=== PATIENT | male | born 1975 | race Caucasian/White ===

== ENCOUNTER 2020-08-05 15:34 | Inpatient (IN) | payer OTHER ==
[2020-08-05 16:04] LABS: Basophils % (A) 1 %; Eosinophils # (A) 0.1 k/uL (0-0.7); Eosinophils % (A) 2 %; HCT 40.7 % (39.0-53.0); HGB 13.7 gm/dL (13.0-17.5); Lymphocytes # (A) 1.2 k/uL (1.0-4.8); Lymphocytes % (A) 20 %; MCH 36.7 pg (25.0-35.0); MCHC 33.8 g/dL (31.0-37.0); MCV 108.6 fL (80.0-100.0); Macrocytosis Moderate; Mean Platelet Volume 7.1; Monocytes # (A) 0.3 k/uL (0-1.0); Monocytes % (A) 5 %; Neutrophils # (A) 4.1 k/uL (1.3-7.7); Neutrophils % (A) 70 %; Platelet Count 198 k/uL (150-450); RBC 3.74 m/uL (4.30-5.90); RDW 13.3 % (11.5-15.5); WBC 5.9 k/uL (3.8-10.6)
[2020-08-05 16:10] LABS: Prothrombin Time 10.6 sec (9.0-12.0)
[2020-08-05] MEDS ORDERED: LORazepam 2 MG/ML INJ IV STA (16:26)
[2020-08-05 16:33] LABS: ALT 185 U/L (4-49); AST 312 U/L (17-59); African American GFR (CKD) >90 (>60 ml/min/1.73 sqM); Albumin 3.9 g/dL (3.5-5.0); Alkaline Phosphatase 111 U/L (38-126); Anion Gap 12 mmol/L; Blood Urea Nitrogen 10 mg/dL (9-20); Calcium 8.5 mg/dL (8.4-10.2); Carbon Dioxide 24 mmol/L (22-30); Chloride 105 mmol/L (98-107); Creatine Kinase 167 U/L (55-170); Glucose 98 mg/dL (74-99); Magnesium 1.5 mg/dL (1.6-2.3); Non-African American GFR(CKD) >90 (>60 ml/min/1.73 sqM); Potassium 3.9 mmol/L (3.5-5.1); Sodium 141 mmol/L (137-145); Total Bilirubin 0.8 mg/dL (0.2-1.3); Total Protein 6.3 g/dL (6.3-8.2)
[2020-08-05] MEDS ORDERED: SODIUM CHLORIDE 0.9% 1,000 ML with MVI, ADULT NO.4 WITH VIT K 10 ML, THIAMINE 100 MG, F... IV ONE ×4 (16:45)
[2020-08-05 16:49] LABS: Alcohol 287 mg/dL
--- NOTE | 2020-08-05 17:07 | ED ---
Alcohol HPI - General Chief Complaint: Alcohol Stated Complaint: Dehydration, [facility] Pt Time Seen by Provider: 08/05/20 15:50 Source: patient, RN notes reviewed Mode of arrival: wheelchair Limitations: no limitations - History of Present Illness Initial Comments: This is a 44-year-old male with a history of alcohol abuse he states he drinks a fifth a day was trying to get into rehab today he was sent here for further evaluation he's had nausea decrease oral intake he states his last drink was yesterday. Feeling very shaky any palpitations. No fevers chills or sweats at this time. No history of seizures. MD Complaint: alcohol intoxication, alcohol withdrawal, alcohol dependence - Related Data Home Medications Medication Instructions Recorded Confirmed No Known Home Medications 08/05/20 08/05/20 Allergies Allergy/AdvReac Type Severity Reaction Status Date / Time No Known Allergies Allergy Verified 08/05/20 16:42 Review of Systems ROS Statement: Those systems with pertinent positive or pertinent negative responses have been documented in the HPI. ROS Other: All systems not noted in ROS Statement are negative. Past Medical History Past Medical History: No Reported History History of Any Multi-Drug Resistant Organisms: None Reported Past Surgical History: Orthopedic Surgery Past Psychological History: Depression Smoking Status: Current some day smoker Past Alcohol Use History: Abuse, Daily Past Drug Use History: None Reported General Exam - General Exam Comments Initial Comments: This is a well-developed well-nourished awake alert oriented times 3 male he does demonstrate some fine tremors Limitations: no limitations General appearance: alert, anxious Head exam: Present: atraumatic, normocephalic, normal inspection Eye exam: Present: normal appearance, PERRL, EOMI. Absent: scleral icterus, con junctival injection, periorbital swelling ENT exam: Present: mucous membranes dry Neck exam: Present: normal inspection, full ROM Respiratory exam: Present: normal lung sounds bilaterally. Absent: respiratory distress, wheezes, rales, rhonchi, stridor Cardiovascular Exam: Present: normal rhythm, tachycardia, normal heart sounds. Absent: systolic murmur, diastolic murmur, rubs, gallop, clicks GI/Abdominal exam: Present: soft, normal bowel sounds. Absent: distended, ten derness, guarding, rebound, rigid Extremities exam: Present: normal inspection, full ROM, normal capillary refill, other (Some tremor noted). Absent: tenderness, pedal edema, joint swelling, calf tenderness Back exam: Present: normal inspection Neurological exam: Present: alert, oriented X3, CN II-XII intact Psychiatric exam: Present: normal affect, normal mood Skin exam: Present: warm, dry, intact, normal color. Absent: rash Course Vital Signs 08/05/20 15:38 Temperature 97.9 F Pulse Rate 102 H Respiratory 16 Rate Blood Pressure 141/93 O2 Sat by Pulse 95 Oximetry Medical Decision Making - Medical Decision Making I did discuss findings with patient family patient be admitted he does demonstrate evidence of alcohol intoxication as well as withdrawal symptoms at this time. Also hypomagnesemia he will be admitted to the hospitalist Dr. Schreiber - Lab Data Result diagrams: 08/05/20 15:48 08/05/20 15:48 Lab Results 08/05/20 08/05/20 08/05/20 Range/Units 15:48 15:48 15:48 WBC 5.9 (3.8-10.6) k/uL RBC 3.74 L (4.30-5.90) m/uL Hgb 13.7 (13.0-17.5) gm/dL Hct 40.7 (39.0-53.0) % MCV 108.6 H (80.0-100.0) fL MCH 36.7 H (25.0-35.0) pg MCHC 33.8 (31.0-37.0) g/dL RDW 13.3 (11.5-15.5) % Plt Count 198 (150-450) k/uL MPV 7.1 Neutrophils % 70 % Lymphocytes % 20 % Monocytes % 5 % Eosinophils % 2 % Basophils % 1 % Neutrophils # 4.1 (1.3-7.7) k/uL Lymphocytes # 1.2 (1.0-4.8) k/uL Monocytes # 0.3 (0-1.0) k/uL Eosinophils # 0.1 (0-0.7) k/uL Basophils # 0.0 (0-0.2) k/uL Macrocytosis Moderate PT 10.6 (9.0-12.0) sec INR 1.0 (<1.2) Sodium 141 (137-145) mmol/L Potassium 3.9 (3.5-5.1) mmol/L Chloride 105 (98-107) mmol/L Carbon Dioxide 24 (22-30) mmol/L Anion Gap 12 mmol/L BUN 10 (9-20) mg/dL Creatinine 0.78 (0.66-1.25) mg/dL Est GFR (CKD-EPI)AfAm >90 (>60 ml/min/1.73 sqM) Est GFR (CKD-EPI)NonAf >90 (>60 ml/min/1.73 sqM) Glucose 98 (74-99) mg/dL Calcium 8.5 (8.4-10.2) mg/dL Magnesium 1.5 L (1.6-2.3) mg/dL Total Bilirubin 0.8 (0.2-1.3) mg/dL AST 312 H (17-59) U/L ALT 185 H (4-49) U/L Alkaline Phosphatase 111 (38-126) U/L Creatine Kinase 167 (55-170) U/L Total Protein 6.3 (6.3-8.2) g/dL Albumin 3.9 (3.5-5.0) g/dL Serum Alcohol 287 H* mg/dL Disposition Clinical Impression: Alcoholic intoxication, Alcohol withdrawal syndrome, Hypomagnesemia syndrome Disposition: ADMITTED IP TO THIS [facility] Condition: Fair Referrals: None,Stated [Primary Care Provider] - 1-2 days
[2020-08-05] MEDS ORDERED: NALOXONE 0.4 MG/ML 1 ML VIAL IV PRN (17:46)
[2020-08-05] MEDS ORDERED: THIAMINE 100 MG/ML 2 ML VIAL IM STA (17:47)
[2020-08-05] MEDS ORDERED: LORazepam 2 MG/ML INJ IV PRN (17:47)
[2020-08-05] MEDS: MAGNESIUM SULFATE-D5W PMX 1 GM in DEXTROSE/WATER 1 100ML.BAG IVPB SCH ×2 (18:47→19:50)
[2020-08-05] MEDS: LORazepam 2 MG/ML INJ IV PRN (23:17)
--- NOTE | 2020-08-05 23:47 | P.HPIM ---
History of Present Illness H&P Date: 08/05/20 Chief Complaint: Alcohol intoxication 44-year-old male with no significant past medical history patient is alcohol dependent Patient is currently intoxicated and provides limited history Patient admits to drinking a fifth every day, he decided to quit alcohol, he went to rehab today however he was sent to the hospital due to severe intoxication. Upon presentation to the hospital patient was intoxicated ribbon cutter level was 287 blood work showed macrocytosis without anemia, hypomagnesemia, acute alcoholic hepatitis. Patient denies any GI bleeding or abdominal pain denies any chest pain or trouble breathing denies any fevers or chills. Patient denies going through withdrawal seizures in the past. Patient denies any other medical conditions Review of Systems ROS unobtainable: due to mental status Past Medical History Past Medical History: No Reported History Additional Past Medical History / Comment(s): depression, left sided weakness and numbness on left side History of Any Multi-Drug Resistant Organisms: None Reported Past Surgical History: Orthopedic Surgery Additional Past Surgical History / Comment(s): finger surgery Past Anesthesia/Blood Transfusion Reactions: No Reported Reaction Past Psychological History: Depression Smoking Status: Current some day smoker Past Alcohol Use History: Abuse, Daily Additional Past Alcohol Use History / Comment(s): smokes cigars daily, drinks 1 fifth a day of alcohol Past Drug Use History: None Reported - Past Family History Father Brother(s) Family Medical History: Cancer Mother Family Medical History: Cancer Medications and Allergies Home Medications Medication Instructions Recorded Confirmed Type Acetaminophen [Tylenol Extra 2 cap PO Q4-6H 08/05/20 08/05/20 History Strength] Ibuprofen 2 cap PO Q4-6H 08/05/20 08/05/20 History Allergies Allergy/AdvReac Type Severity Reaction Status Date / Time No Known Allergies Allergy Verified 08/05/20 16:42 Physical Exam Vitals: Vital Signs Temp Pulse Pulse Resp BP BP Pulse Ox 08/05/20 20:50 91 18 142/87 90 L 08/05/20 20:00 98.3 F 102 H 16 152/95 93 L 08/05/20 19:39 97 18 138/102 90 L 08/05/20 15:38 97.9 F 102 H 16 141/93 95 Intake and Output 08/05/20 08/05/20 08/06/20 14:59 22:59 06:59 Intake Total 590 Balance 590 Intake: Oral 590 Other: Voiding Method Toilet Weight 74.843 kg Constitutional: No acute distress, sleepy easily arousable however drifts back to sleep and quickly patient seems to be intoxicated Eyes: Anicteric sclerae, moist conjunctiva, Pupils equal round reactive to light ENMT: NC/AT Oropharynx clear, no erythema, or exudates Neck: Supple, FROM, no masses, or JVD No carotid bruits No thyromegaly Lungs: Clear to auscultation Clear to percussion Normal respiratory effort, no accessory muscle use Cardiovascular: Heart regular in rate and rhythm, No murmurs, gallops, or rubs No peripheral edema Abdominal: Soft Nontender, no guarding, rebound or rigidity Abdomen moving with respiration Normoactive bowel sounds No hepatomegaly, No splenomegaly No palpable mass No abdominal wall hernia noted Skin: Normal temperature, tone, texture, turgor No induration No subcutaneous nodules No rash, lesions No ulcers Extremities: No digital cyanosis No clubbing Pedal pulses intact and symmetrical Radial pulses intact and symmetrical No calf tenderness Psychiatric: Alert and oriented to person, place Neuro unable to assess patient is intoxicated and unable to participate with proper neuro exam Lymphatics: no palpable cervical or supraclavicular , or inguinal lymph nodes Results CBC & Chem 7: 08/05/20 15:48 08/05/20 15:48 Labs: Abnormal Lab Results - Last 24 Hours (Table) 08/05/20 08/05/20 Range/Units 15:48 15:48 RBC 3.74 L (4.30-5.90) m/uL MCV 108.6 H (80.0-100.0) fL MCH 36.7 H (25.0-35.0) pg Magnesium 1.5 L (1.6-2.3) mg/dL AST 312 H (17-59) U/L ALT 185 H (4-49) U/L Serum Alcohol 287 H* mg/dL Thrombosis Risk Factor Assmnt - Choose All That Apply Any of the Below Risk Factors Present?: Yes Each Factor Represents 1 point: Age 41-60 years Other Risk Factors: No Other congenital or acquired thrombophilia - If yes, enter type in comment: No Thrombosis Risk Factor Assessment Total Risk Factor Score: 1 Thrombosis Risk Factor Assessment Level: Low Risk Assessment and Plan Assessment: Acute alcohol intoxication with delirium due to moderate to severe alcohol abuse Monitor for alcohol withdrawal syndrome Benzos per CIWA scale Thiamine IV fluid hydration Fall precautions Seizure precautions Macrocytosis without anemia Most likely secondary to alcohol abuse Age and denies any GI bleeding Hypomagnesemia Replace and follow up levels Acute alcoholic hepatitis Monitor liver enzymes CODE STATUS: Full code DVT prophylaxis: Mechanical Discussed with: Patient, ER, RN Anticipated length of stay more than [address]: [facility] A total of 65 minutes was spent on the care of this complex patient more than 50% of the time was spent in counseling and care coordination.
[2020-08-06] MEDS: LORazepam 2 MG/ML INJ IV PRN ×4 (03:03→18:18)
[2020-08-06] MEDS: THIAMINE 100 MG TAB PO SCH ×2 (07:51→18:18)
[2020-08-06] MEDS: NICOTINE 14MG/24HR PATCH TRANSDERM SCH (07:52)
[2020-08-06 10:03] LABS: African American GFR (CKD) 131.2 (60.0-200.0); Albumin 3.5 g/dL (3.80-4.90); Albumin/Globulin Ratio 2.06 (1.60-3.17); Anion Gap 6.9 mmol/L (4.00-12.00); BUN/Creat Ratio 14.29 Ratio (12.00-20.00); Carbon Dioxide 27.1 mmol/L (21.6-31.8); Globulin 1.7 g/dL (1.6-3.3); Magnesium 1.6 mg/dL (1.5-2.4); Non-African American GFR(CKD) 113.2 (60.0-200.0); Potassium 3.6 mmol/L (3.5-5.5); Total Bilirubin 1.3 mg/dL (0.2-1.2); Total Protein 5.2 g/dL (6.2-8.2)
[2020-08-06 10:17] VITALS: BMI 23.0
[2020-08-06] MEDS: MAGNESIUM SULFATE-D5W PMX 1 GM in DEXTROSE/WATER 1 100ML.BAG IVPB SCH ×2 (11:11→12:56)
[2020-08-06] MEDS: DEXTROSE 5%-0.45% NACL 1,000 ML IV SCH ×2 (11:12→23:45)
[2020-08-06] MEDS ORDERED: KETOROLAC 15 MG/ML 1 ML VIAL IVP STA (14:18)
--- NOTE | 2020-08-06 14:34 | P.PN ---
Subjective Progress Note Date: 08/06/20 Patient is lethargic this morning when I saw him. He just received IV Ativan prior to my evaluation according to nursing staff. His having symptoms of withdrawal. Objective - Vital Signs Vital signs: Vital Signs Temp 98.6 F 08/06/20 12:00 Pulse 71 08/06/20 12:00 Resp 18 08/06/20 12:00 BP 167/84 08/06/20 12:00 Pulse Ox 97 08/06/20 12:00 Intake & Output 08/05/20 08/06/20 08/06/20 18:59 06:59 18:59 Intake Total 1390 Balance 1390 Weight 74.843 kg 74.843 kg 74.843 kg Intake: Intake, IV Titration 800 Amount Sodium Chloride 0.9% 1, 800 000 ml @ 100 mls/hr IV . Q10H7M ONE with Mvi, Adult No.4 with Vit K 10 ml with Thiamine 100 mg with Folic Acid 1 mg Rx#: [id number] Oral 590 Other: Voiding Method Toilet Toilet # Voids 2 - Exam General: The patient is lethargic but easily arousable Eye: there is normal conjunctiva bilaterally. Neck: The neck is supple, there is no JVD. Cardiovascular: Normal S1-S2, no S3-S4, no murmurs. Respiratory: Lungs clear to auscultation bilaterally Gastrointestinal: Abdomen is soft, nontender Musculoskeletal: There is no pedal edema. Neurological:. Speech is normal. Skin: Skin is warm and dry - Labs CBC & Chem 7: 08/05/20 15:48 08/06/20 05:03 Labs: Abnormal Lab Results - Last 24 Hours (Table) 08/05/20 08/05/20 08/06/20 Range/Units 15:48 15:48 05:03 RBC 3.74 L (4.30-5.90) m/uL MCV 108.6 H (80.0-100.0) fL MCH 36.7 H (25.0-35.0) pg Calcium 8.0 L (8.7-10.3) mg/dL Magnesium 1.5 L (1.6-2.3) mg/dL Total Bilirubin 1.3 H (0.2-1.2) mg/dL AST 312 H 257 H (17-59) U/L ALT 185 H 175 H (4-49) U/L Total Protein 5.2 L (6.2-8.2) g/dL Albumin 3.50 L (3.80-4.90) g/dL Serum Alcohol 287 H* mg/dL Assessment and Plan Assessment: Acute alcohol intoxication with delirium due to moderate to severe alcohol abuse Monitor for alcohol withdrawal syndrome Benzos per CIWA scale Thiamine IV fluid hydration Fall precautions Seizure precautions Macrocytosis without anemia Most likely secondary to alcohol abuse Age and denies any GI bleeding Hypomagnesemia Replace and follow up levels Acute alcoholic hepatitis Monitor liver enzymes CODE STATUS: Full code DVT prophylaxis: Mechanical Discussed with: Patient, ER, RN
[2020-08-06] MEDS: diazePAM 5 MG TAB PO SCH (21:39)
[2020-08-07] MEDS ORDERED: cloNIDine HCL 0.2 MG TAB PO PRN (01:00)
[2020-08-07] MEDS ORDERED: Magnesium Replacement Protocol 1 EACH MISC MISCELLANE PRN (08:57)
[2020-08-07] MEDS: NICOTINE 14MG/24HR PATCH TRANSDERM SCH (09:05)
[2020-08-07] MEDS: MAGNESIUM SULFATE-D5W PMX 1 GM in DEXTROSE/WATER 1 100ML.BAG IVPB SCH ×2 (09:05→13:06)
[2020-08-07] MEDS: diazePAM 5 MG TAB PO SCH ×2 (09:05→20:31)
[2020-08-07] MEDS: THIAMINE 100 MG TAB PO SCH ×2 (09:05→17:03)
[2020-08-07] MEDS ORDERED: traMADol 50 MG TAB PO STA (09:23)
[2020-08-07 10:37] LABS: African American GFR (CKD) 139.7 (60.0-200.0); Anion Gap 6.4 mmol/L (4.00-12.00); Calcium 8.5 mg/dL (8.7-10.3); Carbon Dioxide 29.6 mmol/L (21.6-31.8); Magnesium 1.7 mg/dL (1.5-2.4); Non-African American GFR(CKD) 120.6 (60.0-200.0); Potassium 3.3 mmol/L (3.5-5.5)
[2020-08-07] MEDS ORDERED: POTASSIUM CHLORIDE ER 20 MEQ TAB.ER PO STA (12:00)
[2020-08-07 12:31] VITALS: RESP 20
[2020-08-07] MEDS: DEXTROSE 5%-0.45% NACL 1,000 ML IV SCH (13:06)
--- NOTE | 2020-08-07 15:22 | P.PN ---
Subjective Progress Note Date: 08/07/20 Patient is doing well today. He is complaining of mild headache. No acute events overnight reported by nursing staff. Objective - Vital Signs Vital signs: Vital Signs Temp 97.9 F 08/07/20 12:30 Pulse 77 08/07/20 12:30 Resp 20 08/07/20 12:30 BP 131/89 08/07/20 12:30 Pulse Ox 95 08/07/20 12:30 Intake & Output 08/06/20 08/07/20 08/07/20 18:59 06:59 18:59 Intake Total 470 1125 Balance 470 1125 Weight 74.843 kg Intake: Intake, IV Titration 725 Amount Dextrose 5%-0.45% NaCl 1, 725 000 ml @ 75 mls/hr IV . [id number] [facility] Rx#:[id number] Oral 470 400 Other: Voiding Method Toilet Diaper Urinal Incontinent Diaper Incontinent # Voids 1 2 # Bowel Movements 2 1 - Exam General: The patient is lethargic but easily arousable Eye: there is normal conjunctiva bilaterally. Neck: The neck is supple, there is no JVD. Cardiovascular: Normal S1-S2, no S3-S4, no murmurs. Respiratory: Lungs clear to auscultation bilaterally Gastrointestinal: Abdomen is soft, nontender Musculoskeletal: There is no pedal edema. Neurological:. Speech is normal. Skin: Skin is warm and dry - Labs CBC & Chem 7: 08/05/20 15:48 08/07/20 05:17 Labs: Abnormal Lab Results - Last 24 Hours (Table) 08/07/20 Range/Units 05:17 Potassium 3.3 L (3.5-5.5) mmol/L Glucose 154 H (70-110) mg/dL Calcium 8.5 L (8.7-10.3) mg/dL Assessment and Plan Assessment: Acute alcohol intoxication with delirium due to moderate to severe alcohol abuse Monitor for alcohol withdrawal syndrome Benzos per CIWA scale Thiamine IV fluid hydration Fall precautions Seizure precautions Macrocytosis without anemia Most likely secondary to alcohol abuse denies any GI bleeding Hypomagnesemia Replaced Acute alcoholic hepatitis Monitor liver enzymes Patient will be discharged to [facility] tomorrow. They're unable to accept him today. CODE STATUS: Full code DVT prophylaxis: Mechanical Discussed with: Patient, ER, RN
[2020-08-07] MEDS: ACETAMINOPHEN TAB 325 MG TAB PO PRN (17:03)
[2020-08-07 17:41] LABS: ALT 134 U/L (4-49); AST 140 U/L (17-59); African American GFR (CKD) >90 (>60 ml/min/1.73 sqM); Albumin 3.8 g/dL (3.5-5.0); Albumin/Globulin Ratio 1.7; Alkaline Phosphatase 118 U/L (38-126); Anion Gap 5 mmol/L; Blood Urea Nitrogen 8 mg/dL (9-20); Calcium 9.2 mg/dL (8.4-10.2); Carbon Dioxide 30 mmol/L (22-30); Chloride 100 mmol/L (98-107); Globulin 2.3 g/dL; Glucose 106 mg/dL (74-99); Non-African American GFR(CKD) >90 (>60 ml/min/1.73 sqM); Potassium 4.1 mmol/L (3.5-5.1); Sodium 135 mmol/L (137-145); Total Bilirubin 1.2 mg/dL (0.2-1.3); Total Protein 6.1 g/dL (6.3-8.2)
[2020-08-08 05:12] VITALS: BP 132/90; PULSE 90; TEMP 98.9
--- NOTE | 2020-08-08 08:19 | P.DS ---
Providers Date of admission: 08/05/20 17:46 Expected date of discharge: 08/08/20 Attending physician: Marina Schreiber Primary care physician: Stated None Hospital Course: This is a 44-year-old male with history of alcohol abuse that presented to the emergency room sent from [facility] with alcohol intoxication. Patient was placed on observation and treated aggressively with IV fluid hydration and as needed Ativan for symptoms of withdrawal. Patient's overall condition remains stable. He would be discharged to [facility] for detox. He had evidence of alcohol-induced hepatitis on presentation that liver enzymes was trending down. Hypomagnesemia was replaced. Patient will be discharged in a stable condition. He was counseled extensively regarding alcohol abuse. General: The patient is awake and alert, in no distress Eye: there is normal conjunctiva bilaterally. Neck: The neck is supple, there is no JVD. Cardiovascular: Normal S1-S2, no S3-S4, no murmurs. Respiratory: Lungs clear to auscultation bilaterally Gastrointestinal: Abdomen is soft, nontender Musculoskeletal: There is no pedal edema. Neurological:. Speech is normal. Skin: Skin is warm and dry Patient Condition at Discharge: Fair Plan - Discharge Summary Discharge Rx Participant: Yes New Discharge Prescriptions: New Magnesium Oxide [Mag-Ox] 400 mg PO DAILY #30 tablet Discontinued Acetaminophen [Tylenol Extra Strength] 2 cap PO Q4-6H Ibuprofen 2 cap PO Q4-6H Discharge Medication List Magnesium Oxide [Mag-Ox] 400 mg PO DAILY #30 tablet 08/08/20 [Rx] Follow up Appointment(s)/Referral(s): None,Stated [Primary Care Provider] - 1-2 days Discharge Disposition: TRANSFER TO SNF/ECF
[2020-08-08] MEDS: NICOTINE 14MG/24HR PATCH TRANSDERM SCH (08:28)
[2020-08-08] MEDS: THIAMINE 100 MG TAB PO SCH (08:28)
[2020-08-08] MEDS: diazePAM 5 MG TAB PO SCH (08:28)
[2020-08-08] MEDS: ACETAMINOPHEN TAB 325 MG TAB PO PRN (08:29)
== END 2020-08-08 13:09 | disposition home or self-care (01) | DRG 897 ==
LOC: EC 15:34 → 5NMEDONC 17:46
PROVIDERS: ADMIT Internal Medicine; ATTEND Internal Medicine
DX: F10.221 Alcohol dependence with intoxication delirium (principal); F10.239 Alcohol dependence with withdrawal, unspecified; F17.210 Nicotine dependence, cigarettes, uncomplicated; E83.42 Hypomagnesemia; D75.89 Other specified diseases of blood and blood-forming organs; E86.0 Dehydration; F32.9 Major depressive disorder, single episode, unspecified; K70.10 Alcoholic hepatitis without ascites; Z71.41 Alcohol abuse counseling and surveillance of alcoholic; Z20.822 Contact with and (suspected) exposure to COVID-19; Y90.8 Blood alcohol level of 240 mg/100 ml or more
CPT/HCPCS: 36415; 80048; 80053; 80320; 82550; 83735; 85025; 85610; 87636; 99285

== ENCOUNTER 2020-10-09 22:09 | Inpatient (IN) | payer OTHER ==
[2020-10-09] MEDS ORDERED: LORazepam 2 MG/ML INJ IV STA (22:57)
[2020-10-09] MEDS ORDERED: SODIUM CHLORIDE 0.9% 1,000 ML IV STA (22:57)
--- NOTE | 2020-10-09 22:57 | ED ---
Alcohol HPI - General Chief Complaint: Alcohol Stated Complaint: Mental Health Time Seen by Provider: 10/09/20 22:57 Source: patient, RN notes reviewed, old records reviewed Mode of arrival: ambulatory Limitations: no limitations, altered mental status - History of Present Illness Initial Comments: This is a 44-year-old male DF for evaluation patient presents today for evaluation regards to severe alcohol intoxication. Patient is gone through phases recently with rehabilitation withdrawal, and patient withdrawal and has been sober for periods of time. Patient recently started taking again and family is concerned for him MD Complaint: alcohol intoxication, alcohol withdrawal, alcohol dependence, desires rehab, medical clearance for detox facility Last Drink: just STUDIO POTTER -: minute(s) Previous Visits for Alcohol Intoxication?: Yes Recent Trauma: No Associated Symptoms: denies other symptoms Treatments Prior to Arrival: none Chronic Alcohol Use: Yes - Related Data Previous Rx's Medication Instructions Recorded Magnesium Oxide [Mag-Ox] 400 mg PO DAILY #30 tablet 08/08/20 Allergies Allergy/AdvReac Type Severity Reaction Status Date / Time No Known Allergies Allergy Verified 10/09/20 22:46 Review of Systems ROS Statement: Those systems with pertinent positive or pertinent negative responses have been documented in the HPI. ROS Other: All systems not noted in ROS Statement are negative. Past Medical History Past Medical History: No Reported History Additional Past Medical History / Comment(s): depression, left sided weakness and numbness on left side History of Any Multi-Drug Resistant Organisms: None Reported Past Surgical History: Orthopedic Surgery Additional Past Surgical History / Comment(s): finger surgery Past Anesthesia/Blood Transfusion Reactions: No Reported Reaction Past Psychological History: Depression Smoking Status: Current some day smoker Past Alcohol Use History: Abuse, Daily Past Drug Use History: None Reported - Past Family History Father Brother(s) Family Medical History: Cancer Mother Family Medical History: Cancer General Exam Limitations: no limitations, altered mental status General appearance: appears intoxicated, anxious, lethargic Head exam: Present: atraumatic, normocephalic, normal inspection Eye exam: Present: normal appearance, PERRL, EOMI. Absent: scleral icterus, conjunctival injection, periorbital swelling ENT exam: Present: normal exam, mucous membranes moist Neck exam: Present: normal inspection. Absent: tenderness, meningismus, lymphadenopathy Respiratory exam: Present: normal lung sounds bilaterally. Absent: respiratory distress, wheezes, rales, rhonchi, stridor Cardiovascular Exam: Present: normal rhythm, tachycardia, normal heart sounds. Absent: systolic murmur, diastolic murmur, rubs, gallop, clicks GI/Abdominal exam: Present: soft, normal bowel sounds. Absent: distended, tenderness, guarding, rebound, rigid Extremities exam: Present: normal inspection, full ROM, normal capillary refill. Absent: tenderness, pedal edema, joint swelling, calf tenderness Back exam: Present: normal inspection Neurological exam: Present: alert, oriented X3, CN II-XII intact Psychiatric exam: Present: normal affect, normal mood Skin exam: Present: warm, dry, intact, normal color. Absent: rash Course Vital Signs 10/09/20 10/09/20 10/10/20 22:43 23:46 00:00 Temperature 97.7 F Pulse Rate 119 H 89 90 Respiratory 20 20 20 Rate Blood Pressure 145/97 92/51 97/61 O2 Sat by Pulse 95 95 96 Oximetry 10/10/20 01:00 Temperature Pulse Rate 87 Respiratory 20 Rate Blood Pressure 95/62 O2 Sat by Pulse 98 Oximetry - Reevaluation(s) Reevaluation #1: 10/10/20 01:34 Record is reviewed Reevaluation #2: 10/10/20 01:34 patient is significantly intoxicated, mildly somnolent here in the ER Reevaluation #3: 10/10/20 01:34 Patient is not homicidal or suicidal Reevaluation #4: 10/10/20 01:34 Patient family informed of results and questions answered Medical Decision Making - Medical Decision Making 44 male to the ER for severe alcohol intoxication. Patient will be admitted for impending alcohol withdrawal and DTs. - Lab Data Result diagrams: 10/09/20 23:25 10/09/20 23:25 Lab Results 10/09/20 10/09/20 Range/Units 23:25 23:25 WBC 8.2 (3.8-10.6) k/uL RBC 4.06 L (4.30-5.90) m/uL Hgb 13.8 (13.0-17.5) gm/dL Hct 42.3 (39.0-53.0) % MCV 104.1 H (80.0-100.0) fL MCH 33.9 (25.0-35.0) pg MCHC 32.6 (31.0-37.0) g/dL RDW 14.3 (11.5-15.5) % Plt Count 214 (150-450) k/uL MPV 7.2 Neutrophils % 47 % Lymphocytes % 44 % Monocytes % 3 % Eosinophils % 2 % Basophils % 1 % Neutrophils # 3.9 (1.3-7.7) k/uL Lymphocytes # 3.6 (1.0-4.8) k/uL Monocytes # 0.3 (0-1.0) k/uL Eosinophils # 0.1 (0-0.7) k/uL Basophils # 0.1 (0-0.2) k/uL Macrocytosis Slight Sodium 144 (137-145) mmol/L Potassium 3.4 L (3.5-5.1) mmol/L Chloride 108 H (98-107) mmol/L Carbon Dioxide 25 (22-30) mmol/L Anion Gap 11 mmol/L BUN 6 L (9-20) mg/dL Creatinine 0.72 (0.66-1.25) mg/dL Est GFR (CKD-EPI)AfAm >90 (>60 ml/min/1.73 sqM) Est GFR (CKD-EPI)NonAf >90 (>60 ml/min/1.73 sqM) Glucose 90 (74-99) mg/dL Calcium 8.9 (8.4-10.2) mg/dL Phosphorus 2.7 (2.5-4.5) mg/dL Magnesium 1.6 (1.6-2.3) mg/dL Total Bilirubin 0.6 (0.2-1.3) mg/dL AST 87 H (17-59) U/L ALT 38 (4-49) U/L Alkaline Phosphatase 93 (38-126) U/L Total Protein 6.5 (6.3-8.2) g/dL Albumin 4.2 (3.5-5.0) g/dL Lipase 200 (23-300) U/L Serum Alcohol 376 H* mg/dL Disposition Clinical Impression: Alcoholic intoxication, Alcohol withdrawal syndrome Disposition: ADMITTED IP TO THIS HOSP Condition: Fair Is patient prescribed a controlled substance at d/c from ED?: No Referrals: None,Stated [Primary Care Provider] - 1-2 days
[2020-10-09 23:49] LABS: Basophils # (A) 0.1 k/uL (0-0.2); Basophils % (A) 1 %; Eosinophils # (A) 0.1 k/uL (0-0.7); Eosinophils % (A) 2 %; HCT 42.3 % (39.0-53.0); HGB 13.8 gm/dL (13.0-17.5); Lymphocytes # (A) 3.6 k/uL (1.0-4.8); Lymphocytes % (A) 44 %; MCH 33.9 pg (25.0-35.0); MCHC 32.6 g/dL (31.0-37.0); MCV 104.1 fL (80.0-100.0); Macrocytosis Slight; Mean Platelet Volume 7.2; Monocytes # (A) 0.3 k/uL (0-1.0); Monocytes % (A) 3 %; Neutrophils # (A) 3.9 k/uL (1.3-7.7); Neutrophils % (A) 47 %; Platelet Count 214 k/uL (150-450); RBC 4.06 m/uL (4.30-5.90); RDW 14.3 % (11.5-15.5); WBC 8.2 k/uL (3.8-10.6)
[2020-10-09 23:55] LABS: ALT 38 U/L (4-49); AST 87 U/L (17-59); African American GFR (CKD) >90 (>60 ml/min/1.73 sqM); Albumin 4.2 g/dL (3.5-5.0); Alkaline Phosphatase 93 U/L (38-126); Anion Gap 11 mmol/L; Blood Urea Nitrogen 6 mg/dL (9-20); Calcium 8.9 mg/dL (8.4-10.2); Carbon Dioxide 25 mmol/L (22-30); Chloride 108 mmol/L (98-107); Glucose 90 mg/dL (74-99); Lipase 200 U/L (23-300); Magnesium 1.6 mg/dL (1.6-2.3); Non-African American GFR(CKD) >90 (>60 ml/min/1.73 sqM); Phosphorus 2.7 mg/dL (2.5-4.5); Potassium 3.4 mmol/L (3.5-5.1); Sodium 144 mmol/L (137-145); Total Bilirubin 0.6 mg/dL (0.2-1.3); Total Protein 6.5 g/dL (6.3-8.2)
[2020-10-10 00:16] LABS: Alcohol 376 mg/dL
[2020-10-10] MEDS ORDERED: ONDANSETRON 4 MG/2 ML VIAL IVP PRN (01:31)
[2020-10-10] MEDS ORDERED: SODIUM CHLORIDE 0.9% 500 ML 500 ML IV STA (01:32)
[2020-10-10] MEDS ORDERED: THIAMINE 100 MG/ML 2 ML VIAL IM STA (01:32)
[2020-10-10] MEDS ORDERED: LORazepam 2 MG/ML INJ IV PRN (01:32)
[2020-10-10] MEDS ORDERED: SODIUM CHLORIDE 0.9% 1,000 ML IV STA (01:32)
[2020-10-10] MEDS: DEXTROSE 5%-0.45% NACL 1,000 ML IV SCH ×3 (02:02→21:30)
[2020-10-10] MEDS: NICOTINE 21MG/24HR PATCH TRANSDERM SCH ×2 (03:23→08:05)
[2020-10-10] MEDS: PANTOPRAZOLE 40 MG/10 ML VIAL IV SCH (08:07)
[2020-10-10] MEDS: MORPHINE SULFATE 4 MG/ML SYRINGE IV PRN ×2 (08:08→12:31)
[2020-10-10] MEDS: LORazepam 2 MG/ML INJ IV PRN ×4 (12:57→21:30)
--- NOTE | 2020-10-10 13:38 | P.CN ---
Psychiatric Consult - . Consult date: 10/10/20 Consult:: 10/10/20 12:14 IDENTIFYING DATA: This patient is a 44-year old male with a history of severe alcohol use disorder was currently going through a separation with his , lives with his mother in a house has 6 kids and 3 grandkids. Patient is apparently unemployed. REASON FOR REFERRAL: Psychiatry was consulted for "alcohol and depression" HISTORY OF PRESENT ILLNESS: The patient presented to the hospital yesterday with severe alcohol intoxication. Apparently patient has been on and off from alcohol and has been going to rehab as well. The family apparently was concerned for him and patient apparently desired to go to rehab. Patient was admitted to the medical floors for impending withdrawal and possible delirium tremens. Patient is on CIWA protocol with Ativan when necessary. His MCV is 104 and alcohol level on admission was 376. Patients nurse cleans the patient was feeling nauseous and vomiting and also had a recent CIWA that was elevated and is receiving Ativan for her. Patient was seen at the bedside and agreeable to speak to newswriter. He appeared to be in distress secondary to his alcohol withdrawal. He claims that he's been 57 days clean and recently I would of [facility] on September 01. He states that he was doing fine about 4 days ago he relapsed back on alcohol. He states that "I couldn't stop" and knew that he was going to get worse so he came to the hospital. He states that he has been drinking a half-gallon of vodka recently per day. He states that he recently started the separation process with his and filing for divorce. He states that she has been with another man. He states that he has been having ongoing relationship issues with her. 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 He states his mood has been fairly depressed. He claims that he is having some anxiety and was previously on BuSpar. He states that his sleep is "broken" and appetite as been poor. He claims that he does have a history of delirium tremens and severe alcohol withdrawals in the past and is currently experiencing nausea and vomiting and dizziness and gait instability. At this time patient denies any current suicidal or homical ideations, intent or plan. Patient denies any auditory, visual hallucinations and denies any paranoia or delusions. Patients admits to using alcohol as mentioned above. He states that he smokes cigarettes daily. PAST PSYCHIATRIC HISTORY: Patient has a a history of depression and PTSD. Patient denies being on any psychiatric medications. Claims that he was previously admitted to [facility] for psychiatric concerns back in October 2019. He states that he also has been following up with a counselor at [facility]. Patient denies any psychiatric outpatient follow-up. Patient denies any history of suicide attempts in the past. PAST MEDICAL HISTORY: denies. ALLERGIES: as per EMR. CHEMICAL DEPENDENCY HISTORY: as per HPI. FAMILY PSYCHIATRIC/SUBSTANCE USE HISTORY: He states that his brother committed suicide. He states that most family members are depressed. SOCIAL HISTORY: Patient was born and raised in [place] and [place] and states that now he currently lives in [place]. He states that he went to shelter for a criminal sexual conduct degree 3. he states that he completed high school and went on to trade school. He currently lives with his mother and house. MENTAL STATUS EXAM: General Appearance: Patient appears to be tall, thin, stated age is alert, appears to be in distress secondary to withdrawal symptoms. Patient appears to have fair hygiene and grooming wearing hospital gown with poor eye contact. Behavior: Patient is calmly lying in bed without any agitated behavior. In moderate distress. Speech: Patient's speech is fluent and nonpressured. Soft tone Mood/Affect: Patient reports their mood is "depressed and anxious", affect is congruent and constricted Suicidality/Homicidality: Patient denies having any suicidal or homicidal ideation intent or plan. Perceptions: Patient denies any visual hallucinations and denies any auditory hallucinations Though content/process: There is no evidence of any delusional thought content and thought process is linear and goal-directed. [place] Memory and concentration: AOX3, grossly intact for the purposes of this session. Can spell "WORLD" backwards Judgment and insight: poor IMPRESSIONS: Depressive disorder unspecified hx of PTSD alcohol abuse nicotine dependence PLAN: -At this time patient DOES NOT currently meet criteria for inpatient psychiatric admission however will continue to follow along to see if patient eventually will meet criteria. -Would recommend the following medication changes/additions: Started librium 25mg tid for etoh w/d. Naltrexone 50mg daily for etoh cravings. zoloft 25mg for mood/anxiety. remeron 15mg qhs insonmia/mood/anxiety. -thiamine, FA and MVM for etoh use. -CIWA protocol with PRN Ativan for alcohol withdrawal. Continue to monitor vital signs. -wood and wood products factory worker to provide patient with outpatient mental health/psychiatry resources for appropriate follow up upon discharge -Interior Design Professor spoke with patient about substance abuse and the harmful effects on medical and mental health, patient verbally understood and agreed. -wood and wood products factory worker to provide patient substance use treatment resources including AA/NA meetings in the community. -wood and wood products factory worker to provide patient with access line number to call for inpatient substance rehab -Will continue to follow along -Please contact with any questions.
[2020-10-10] MEDS: chlordiazePOXIDE 25 MG CAP PO SCH ×2 (14:25→21:29)
[2020-10-10] MEDS ORDERED: Magnesium Replacement Protocol 1 EACH MISC MISCELLANE PRN (15:44)
[2020-10-10] MEDS ORDERED: Potassium Replacement Protocol 1 EACH MISC MISCELLANE PRN (15:44)
[2020-10-10] MEDS: MAGNESIUM OXIDE 400 MG TAB PO SCH (16:41)
[2020-10-10] MEDS: THIAMINE 100 MG TAB PO SCH (16:41)
[2020-10-10 17:17] LABS: ALT 37 U/L (4-49); AST 76 U/L (17-59); African American GFR (CKD) >90 (>60 ml/min/1.73 sqM); Albumin 3.2 g/dL (3.5-5.0); Alkaline Phosphatase 76 U/L (38-126); Anion Gap 4 mmol/L; Blood Urea Nitrogen 5 mg/dL (9-20); Carbon Dioxide 29 mmol/L (22-30); Chloride 108 mmol/L (98-107); Glucose 98 mg/dL (74-99); Non-African American GFR(CKD) >90 (>60 ml/min/1.73 sqM); Potassium 3.7 mmol/L (3.5-5.1); Sodium 141 mmol/L (137-145); Total Bilirubin 0.9 mg/dL (0.2-1.3); Total Protein 5.4 g/dL (6.3-8.2)
--- NOTE | 2020-10-10 17:57 | HP ---
HISTORY AND PHYSICAL DATE OF SERVICE: 10/10/2020 CHIEF COMPLAINT: Alcohol intoxication. HISTORY OF PRESENT ILLNESS: This 44-year-old gentleman with a past medical history of multiple medical problems, history of depression, history of DJD, history of alcohol, heavy alcohol abuse, not being followed by any primary physician in the outpatient setting was apparently going through a separation from his and the patient apparently was drinking alcohol heavily. Patient was previously being considered for rehab, but currently the patient is intoxicated. The patient is stuporous. Patient was on at [facility] and was clean for some time. The patient came with alcohol intoxication, alcohol level Patient admitted to the hospital for further evaluation and treatment. indicating alcoholic hepatitis. Currently the patient is on CIWA protocol. Currently the patient is unable to give a coherent history. Most of the history taken from my discussion with the friend at the bedside and review of the chart and discussions with staff at this time. PAST MEDICAL HISTORY: Depression. Alcoholism MEDICATIONS: Home medications are magnesium oxide 400 mg p.o. daily. ALLERGIES: None. FAMILY HISTORY: Cancer. SOCIAL HISTORY: History of alcohol. REVIEW OF SYSTEMS: Could not be taken because of the patient's change in mental status. PHYSICAL EXAMINATION: Patient is stuporous. Pulse is 108. Blood pressure 139/81, respirations 20, temperature 98.4, pulse ox 94% on 3 L. HEENT is conjunctivae normal. Oral mucosa moist. NECK is no jugular venous distention. No carotid bruit. No lymph node enlargement. CARDIOVASCULAR systems: S1, S2. RESPIRATION: Breath sounds diminished in the bases. No rhonchi. No crackles. ABDOMEN: Soft, nontender. No mass palpable. LEGS: No edema. No swelling. NERVOUS SYSTEM could not be examined fully because the patient is stuporous. SKIN: No ulcers, rashes or bleeding. JOINTS: No active deforming arthropathy. LABS: WBC 4, hemoglobin 13.2. Sodium 144, potassium 3.5. ASSESSMENT: 1. Acute alcohol intoxication with acute metabolic encephalopathy present on admission. 2. Increased MCV. 3. Hypokalemia. 4. Elevated AST, possibly alcoholic hepatitis. 5. History of depression. 6. History of nicotine dependence. 7. FULL CODE. RECOMMENDATIONS AND DISCUSSION: In this 44-year-old gentleman who presented with multiple complex medical issues, we will monitor the patient closely. CIWA protocol. Otherwise, alcohol abuse cessation advice. Otherwise recommend AA meetings and closely follow with social worker health services and Case Management and discharge planning team. Prognosis guarded because of multiple complex medical problems. Supplement vitamins. See orders for details. DVT prophylaxis. Recommend close followup with a primary physician after discharge. MMODL / IJN: [id number] / MTDD
[2020-10-10] MEDS ORDERED: MIRTAZAPINE 15 MG TAB PO SCH (21:00)
[2020-10-10] MEDS: HEPARIN SODIUM,PORCINE/PF 5,000 UNIT/0.5 ML SYRINGE SQ SCH (21:30)
[2020-10-10 22:30] LABS: Appearance,Urine Clear (Clear); Bilirubin,Urine Negative (Negative); Blood,Urine Negative (Negative); Color,Urine Yellow; Glucose,Urine (UA) Negative (Negative); Ketones,Urine Negative (Negative); Leukocyte Esterase,Urine Negative (Negative); Nitrite,Urine Negative (Negative); Protein,Urine Negative (Negative); Specific Gravity,Urine 1.015 (1.001-1.035); Urobilinogen,Urine <2.0 mg/dL (<2.0)
[2020-10-11] MEDS: THIAMINE 100 MG TAB PO SCH ×2 (06:47→17:21)
[2020-10-11 07:42] LABS: Basophils % (A) 0 %; Eosinophils # (A) 0.3 k/uL (0-0.7); Eosinophils % (A) 4 %; HCT 37.3 % (39.0-53.0); HGB 12.8 gm/dL (13.0-17.5); Lymphocytes # (A) 2.2 k/uL (1.0-4.8); Lymphocytes % (A) 31 %; MCH 36.2 pg (25.0-35.0); MCHC 34.3 g/dL (31.0-37.0); MCV 105.7 fL (80.0-100.0); Macrocytosis Moderate; Mean Platelet Volume 7.8; Monocytes # (A) 0.2 k/uL (0-1.0); Monocytes % (A) 3 %; Neutrophils # (A) 4.2 k/uL (1.3-7.7); Neutrophils % (A) 60 %; Platelet Count 138 k/uL (150-450); RBC 3.53 m/uL (4.30-5.90); RDW 13.3 % (11.5-15.5); WBC 7.1 k/uL (3.8-10.6)
[2020-10-11] MEDS: DEXTROSE 5%-0.45% NACL 1,000 ML IV SCH ×2 (08:00→17:22)
[2020-10-11 08:05] LABS: ALT 35 U/L (4-49); AST 63 U/L (17-59); African American GFR (CKD) >90 (>60 ml/min/1.73 sqM); Albumin 3.1 g/dL (3.5-5.0); Alkaline Phosphatase 93 U/L (38-126); Anion Gap 4 mmol/L; Blood Urea Nitrogen 3 mg/dL (9-20); Calcium 8.4 mg/dL (8.4-10.2); Carbon Dioxide 29 mmol/L (22-30); Chloride 106 mmol/L (98-107); Glucose 106 mg/dL (74-99); Lipase 73 U/L (23-300); Magnesium 1.3 mg/dL (1.6-2.3); Non-African American GFR(CKD) >90 (>60 ml/min/1.73 sqM); Phosphorus 2.9 mg/dL (2.5-4.5); Sodium 139 mmol/L (137-145); Total Bilirubin 1.1 mg/dL (0.2-1.3); Total Protein 5.4 g/dL (6.3-8.2)
[2020-10-11] MEDS: PANTOPRAZOLE 40 MG/10 ML VIAL IV SCH (09:44)
[2020-10-11] MEDS: MAGNESIUM OXIDE 400 MG TAB PO SCH (09:45)
[2020-10-11] MEDS: SERTRALINE 25 MG TAB PO SCH (09:45)
[2020-10-11] MEDS: FOLIC ACID 1 MG TAB PO SCH (09:45)
[2020-10-11] MEDS: HEPARIN SODIUM,PORCINE/PF 5,000 UNIT/0.5 ML SYRINGE SQ SCH ×2 (09:45→20:21)
[2020-10-11] MEDS: MULTIVITAMINS, THERA 1 EACH TAB PO SCH (09:45)
[2020-10-11] MEDS: chlordiazePOXIDE 25 MG CAP PO SCH ×4 (09:45→21:42)
[2020-10-11] MEDS: POTASSIUM CHLORIDE ER 20 MEQ TAB.ER PO SCH ×2 (09:46→11:32)
[2020-10-11] MEDS: ACETAMINOPHEN TAB 500 MG TAB PO PRN ×2 (09:46→17:20)
[2020-10-11] MEDS: NICOTINE 21MG/24HR PATCH TRANSDERM SCH (09:47)
[2020-10-11] MEDS: NALTREXONE HCL 50 MG TAB PO SCH (11:33)
[2020-10-11] MEDS: LORazepam 2 MG/ML INJ IV PRN ×5 (11:33→22:32)
[2020-10-11] MEDS: MAGNESIUM SULFATE-D5W PMX 1 GM in DEXTROSE/WATER 1 100ML.BAG IVPB SCH ×3 (11:33→14:20)
--- NOTE | 2020-10-11 12:18 | P.HPIM ---
History of Present Illness This is a pleasant 44 years old male with past medical history of depression and cigarette smoker. Presents with alcohol intoxication brought by different, he drinks about 5-6 beers a day. He is admitted with alcohol withdrawal treatment. He was still tachycardic with heart rate 125. Low potassium and magnesium replaced. Dislocated and Ativan per [facility] protocol. Psychiatric evaluated the patient and he does not meet criteria for inpatient psychiatric admission. Today this morning he was more sleepy and drowsy Review of Systems CONSTITUTIONAL: No fever, no malaise, no fatigue. HEENT: No recent visual problems or hearing problems. Denied any sore throat. CARDIOVASCULAR: No orthopnea, PND, no palpitations, no syncope. PULMONARY: No shortness of breath, no cough, no hemoptysis. GASTROINTESTINAL: No diarrhea, no nausea, no vomiting, no abdominal pain. Normoactive bowel sounds. NEUROLOGICAL: No headaches, no weakness, no numbness. HEMATOLOGICAL: Denies any bleeding or petechiae. GENITOURINARY: Denies any burning micturition, frequency, or urgency. MUSCULOSKELETAL/RHEUMATOLOGICAL: Denies any joint pain, swelling, or any muscle pain. ENDOCRINE: Denies any polyuria or polydipsia. Past Medical History Past Medical History: No Reported History Additional Past Medical History / Comment(s): depression, left sided weakness and numbness on left side History of Any Multi-Drug Resistant Organisms: None Reported Past Surgical History: Orthopedic Surgery Additional Past Surgical History / Comment(s): finger surgery Past Anesthesia/Blood Transfusion Reactions: No Reported Reaction Past Psychological History: Depression Smoking Status: Current every day smoker Past Alcohol Use History: Abuse, Daily Additional Past Alcohol Use History / Comment(s): smokes cigars daily, drinks 1 fifth a day of alcohol Past Drug Use History: None Reported - Past Family History Father Brother(s) Family Medical History: Cancer Mother Family Medical History: Cancer Medications and Allergies Home Medications Medication Instructions Recorded Confirmed Type Magnesium Oxide [Mag-Ox] 400 mg PO DAILY #30 tablet 08/08/20 10/10/20 Rx Allergies Allergy/AdvReac Type Severity Reaction Status Date / Time No Known Allergies Allergy Verified 10/10/20 08:08 Physical Exam Vitals: Vital Signs Temp Pulse Pulse Pulse Pulse Resp BP 10/11/20 11:48 96 10/11/20 11:35 98.3 F 89 16 10/11/20 11:23 125 H 10/11/20 11:16 180 H 10/11/20 11:14 155 H 10/11/20 11:13 126 H 10/11/20 09:41 98.7 F 77 20 10/11/20 04:15 98.3 F 89 16 10/11/20 00:00 98.6 F 88 17 10/10/20 21:00 99.1 F 90 16 10/10/20 16:23 98 F 89 15 10/10/20 15:56 88 18 141/95 10/10/20 13:00 108 H 20 139/81 BP Pulse Ox 10/11/20 11:48 10/11/20 11:35 143/91 96 10/11/20 11:23 10/11/20 11:16 10/11/20 11:14 10/11/20 11:13 10/11/20 09:41 138/90 96 10/11/20 04:15 164/91 96 10/11/20 00:00 136/87 99 10/10/20 21:00 153/89 96 10/10/20 16:23 151/85 94 L 10/10/20 15:56 97 10/10/20 13:00 94 L Intake and Output 10/10/20 10/11/20 10/11/20 22:59 06:59 14:59 Intake Total 120 Output Total 500 850 Balance -500 -850 120 Intake: Oral 120 Output: Urine 500 850 Other: Voiding Method Urinal Urinal Urinal GENERAL: The patient is alert and oriented x3, not in any acute distress. Well developed, well nourished. HEENT: Pupils are round and equally reacting to light. EOMI. No scleral icterus. No conjunctival pallor. Normocephalic, atraumatic. No pharyngeal erythema. No thyromegaly. CARDIOVASCULAR: S1 and S2 present. No murmurs, rubs, or gallops. PULMONARY: Chest is clear to auscultation, no wheezing or crackles. ABDOMEN: Soft, nontender, nondistended, normoactive bowel sounds. No palpable organomegaly. MUSCULOSKELETAL: No joint swelling or deformity. EXTREMITIES: No cyanosis, clubbing, or pedal edema. NEUROLOGICAL: Gross neurological examination did not reveal any focal deficits. SKIN: No rashes. No petechiae Results CBC & Chem 7: 10/11/20 06:40 10/11/20 06:40 Labs: Abnormal Lab Results - Last 24 Hours (Table) 10/10/20 10/11/20 10/11/20 Range/Units 16:52 06:40 06:40 RBC 3.53 L (4.30-5.90) m/uL Hgb 12.8 L (13.0-17.5) gm/dL Hct 37.3 L (39.0-53.0) % MCV 105.7 H (80.0-100.0) fL MCH 36.2 H (25.0-35.0) pg Plt Count 138 L (150-450) k/uL Potassium 3.0 L (3.5-5.1) mmol/L Chloride 108 H (98-107) mmol/L BUN 5 L 3 L (9-20) mg/dL Creatinine 0.58 L 0.51 L (0.66-1.25) mg/dL Glucose 106 H (74-99) mg/dL Calcium 8.0 L (8.4-10.2) mg/dL Magnesium 1.3 L (1.6-2.3) mg/dL AST 76 H 63 H (17-59) U/L Total Protein 5.4 L 5.4 L (6.3-8.2) g/dL Albumin 3.2 L 3.1 L (3.5-5.0) g/dL Assessment and Plan Assessment: Alcohol intoxication and abuse, alcohol withdrawal hypokalemia and hypomagnesemia Depression Nicotine dependence
--- NOTE | 2020-10-11 13:47 | P.PN ---
Progress Note - Text Progress Note Date: 10/11/20 Interval History: Patient was seen today for psychiatric follow-up on the medical floors for his depression and alcohol use/withdrawal. Patient appeared to be more awake today during conversation. Patient's daughter states that he had elevation in his heart rate earlier and required Ativan for it and was receiving a EKG. Patient claims that he is still having withdrawal symptoms including mild tremors and feeling like his heart is racing. He states that he was not able to sleep fairly last night. He claims that he has had a mild improvement in his mood however still depressed. He claims that he knows that "it's content to be a hard withdrawal to go to". He states that he has a mildly improving appetite today. At this time patient denies any suicidal or homical ideations, intent or plan. Patient denies any auditory, visual hallucinations and denies any paranoia or delusions. Patient denies any side effects from the medications and has been compliant with meds. Mental Status Exam: General Appearance: Patient appears to be tall, thin, stated age is alert, appears to be in less distress secondary to withdrawal symptoms. Patient appears to have fair hygiene and grooming wearing hospital gown with poor eye contact. Behavior: Patient is calmly lying in bed without any agitated behavior. Speech: Patient's speech is fluent and nonpressured. Soft tone Mood/Affect: Patient reports their mood is "a bit better", affect is congruent and constricted Suicidality/Homicidality: Patient denies having any suicidal or homicidal ideation intent or plan. Perceptions: Patient denies any visual hallucinations and denies any auditory hallucinations Though content/process: There is no evidence of any delusional thought content and thought process is linear and goal-directed. [place] Memory and concentration: AOX3, grossly intact for the purposes of this session. Judgment and insight: improving mildly Assessment Depressive disorder unspecified hx of PTSD alcohol abuse nicotine dependence Plan: -At this time patient DOES NOT currently meet criteria for inpatient psychiatric admission however will continue to follow along to see if patient eventually will meet criteria. -Would recommend the following medication changes/additions: increase librium 25mg qid for etoh w/d. Naltrexone 50mg daily for etoh cravings. zoloft 25mg for mood/anxiety. increase remeron 30 mg qhs insonmia/mood/anxiety. -thiamine, FA and MVM for etoh use. -CIWA protocol with PRN Ativan for alcohol withdrawal. Continue to monitor vital signs. -dope and fabric worker to provide patient with outpatient mental health/psychiatry resources for appropriate follow up upon discharge -Experimental Machinist spoke with patient about substance abuse and the harmful effects on medical and mental health, patient verbally understood and agreed. -dope and fabric worker to provide patient substance use treatment resources including AA /NA meetings in the community. -dope and fabric worker to provide patient with access line number to call for inpatient substance rehab -Will continue to follow along -Please contact with any questions.
[2020-10-11] MEDS: MORPHINE SULFATE 4 MG/ML SYRINGE IV PRN (19:03)
[2020-10-11] MEDS ORDERED: POTASSIUM CHLORIDE ER 20 MEQ TAB.ER PO SCH (20:00)
[2020-10-11] MEDS: MIRTAZAPINE 15 MG TAB PO SCH (20:21)
[2020-10-12] MEDS: LORazepam 2 MG/ML INJ IV PRN ×11 (00:55→23:45)
[2020-10-12] MEDS: DEXTROSE 5%-0.45% NACL 1,000 ML IV SCH ×3 (03:30→19:53)
[2020-10-12 06:40] LABS: HCT 37.3 % (39.0-53.0); HGB 12.6 gm/dL (13.0-17.5); MCH 35.5 pg (25.0-35.0); MCHC 33.7 g/dL (31.0-37.0); MCV 105.4 fL (80.0-100.0); Macrocytosis Moderate; Mean Platelet Volume 8.2; Platelet Count 120 k/uL (150-450); RBC 3.53 m/uL (4.30-5.90); RDW 13.6 % (11.5-15.5); WBC 6.8 k/uL (3.8-10.6)
[2020-10-12] MEDS: THIAMINE 100 MG TAB PO SCH ×2 (06:51→17:32)
[2020-10-12] MEDS: PANTOPRAZOLE 40 MG TABLET PO SCH (06:51)
[2020-10-12 07:04] LABS: ALT 31 U/L (4-49); AST 44 U/L (17-59); African American GFR (CKD) >90 (>60 ml/min/1.73 sqM); Albumin 3.3 g/dL (3.5-5.0); Alkaline Phosphatase 97 U/L (38-126); Anion Gap 3 mmol/L; Blood Urea Nitrogen <2 mg/dL (9-20); Calcium 8.8 mg/dL (8.4-10.2); Carbon Dioxide 29 mmol/L (22-30); Chloride 108 mmol/L (98-107); Glucose 115 mg/dL (74-99); Magnesium 1.7 mg/dL (1.6-2.3); Non-African American GFR(CKD) >90 (>60 ml/min/1.73 sqM); Potassium 3.2 mmol/L (3.5-5.1); Sodium 140 mmol/L (137-145); Total Bilirubin 0.8 mg/dL (0.2-1.3); Total Protein 5.7 g/dL (6.3-8.2)
[2020-10-12] MEDS: HEPARIN SODIUM,PORCINE/PF 5,000 UNIT/0.5 ML SYRINGE SQ SCH ×2 (09:26→19:52)
[2020-10-12] MEDS: MAGNESIUM OXIDE 400 MG TAB PO SCH (09:27)
[2020-10-12] MEDS: POTASSIUM CHLORIDE ER 20 MEQ TAB.ER PO SCH ×2 (09:27→11:00)
[2020-10-12] MEDS: MULTIVITAMINS, THERA 1 EACH TAB PO SCH (09:27)
[2020-10-12] MEDS: NALTREXONE HCL 50 MG TAB PO SCH (09:27)
[2020-10-12] MEDS: SERTRALINE 25 MG TAB PO SCH (09:27)
[2020-10-12] MEDS: FOLIC ACID 1 MG TAB PO SCH (09:27)
[2020-10-12] MEDS: chlordiazePOXIDE 25 MG CAP PO SCH ×4 (09:28→22:46)
[2020-10-12] MEDS: NICOTINE 21MG/24HR PATCH TRANSDERM SCH (09:28)
[2020-10-12] MEDS ORDERED: POTASSIUM CHLORIDE ER 20 MEQ TAB.ER PO SCH (10:00)
--- NOTE | 2020-10-12 13:09 | P.PN ---
Subjective This is a pleasant 44 years old male with past medical history of depression and cigarette smoker. Presents with alcohol intoxication brought by different, he drinks about 5-6 beers a day. He is admitted with alcohol withdrawal treatment. He was still tachycardic with heart rate 125. Low potassium and magnesium replaced. Dislocated and Ativan per CIWA protocol. Psychiatric evaluated the patient and he does not meet [facility]. Today this morning he was more sleepy and drowsy 10/12/2020 The patient is more awake however is still lethargic. He still in the his willing to quit alcohol. Currently he is still undergoing withdrawal. His CIWA score is ranging between 6 and 12 today. Still needs significant amount of Ativan and monitoring in the hospital. He is also on Librium 25 mg 3 times a day. He denies any hallucination. Is agreeable to stay in the hospital for now. Psychiatric have seen him and he does not meet criteria for inpatient mental health admission. We will keep monitoring Objective - Vital Signs Vital signs: Vital Signs Temp 97.6 F 10/12/20 11:00 Pulse 101 H 10/12/20 11:00 Resp 18 10/12/20 11:00 BP 136/90 10/12/20 11:00 Pulse Ox 97 10/12/20 11:00 Intake & Output 10/11/20 10/12/20 10/12/20 18:59 06:59 18:59 Intake Total 1040 30 Output Total 300 Balance 1040 -300 30 Intake: IV 30 Invasive Line 3 30 Intake, IV Titration 800 Amount Dextrose 5%-0.45% NaCl 1, 800 000 ml @ 100 mls/hr IV . Q10H VI[facility]UEL Rx#:[id number] Oral 240 Output: Urine 300 Other: Voiding Method Urinal Urinal Urinal # Voids 2 1 # Bowel Movements 1 - Labs CBC & Chem 7: 10/12/20 05:22 10/12/20 05:22 Labs: Abnormal Lab Results - Last 24 Hours (Table) 10/12/20 10/12/20 Range/Units 05:22 05:22 RBC 3.53 L (4.30-5.90) m/uL Hgb 12.6 L (13.0-17.5) gm/dL Hct 37.3 L (39.0-53.0) % MCV 105.4 H (80.0-100.0) fL MCH 35.5 H (25.0-35.0) pg Plt Count 120 L (150-450) k/uL Potassium 3.2 L (3.5-5.1) mmol/L Chloride 108 H (98-107) mmol/L BUN <2 L (9-20) mg/dL Creatinine 0.48 L (0.66-1.25) mg/dL Glucose 115 H (74-99) mg/dL Total Protein 5.7 L (6.3-8.2) g/dL Albumin 3.3 L (3.5-5.0) g/dL Assessment and Plan Assessment: -Alcohol intoxication and abuse, alcohol withdrawal: Continue with CIWA protocol. On thiamine. Patient is willing to quit drinking alcohol -hypokalemia and hypomagnesemia, replaced per protocol -Depression: psychiatrist evaluated the patient and he does not need inpatient psychiatric admission -Nicotine dependence: On nicotine patch
--- NOTE | 2020-10-12 14:26 | P.PN ---
Progress Note - Text Progress Note Date: 10/12/20 Interval History: Patient was seen today for psychiatric follow-up on the medical floors for his depression and alcohol use/withdrawal. Patient CIWA scores have been between 6- 12 and has been receiving Ativan and is on scheduled Librium. Patient appeared to be fairly sedated today during conversation. He spoke about feeling better overall and in terms of his withdrawal symptoms seeing improvement. He states that he was able to sleep better last night. He claims that he has had a mild improvement in his mood. He states that he has a mildly improving appetite today. At this time patient denies any suicidal or homical ideations, intent or plan. Patient denies any auditory, visual hallucinations and denies any paranoia or delusions. Patient denies any side effects from the medications and has been compliant with meds. Mental Status Exam: General Appearance: Patient appears to be tall, thin, stated age is alert, appears to be somewhat sedated today. Patient appears to have fair hygiene and grooming wearing hospital gown with poor eye contact. Behavior: Patient is calmly lying in bed without any agitated behavior. Speech: Patient's speech is fluent and nonpressured. Soft tone Mood/Affect: Patient reports their mood is "better", affect is congruent and constricted Suicidality/Homicidality: Patient denies having any suicidal or homicidal ideation intent or plan. Perceptions: Patient denies any visual hallucinations and denies any auditory hallucinations Though content/process: There is no evidence of any delusional thought content and thought process is linear and goal-directed. [place] Memory and concentration: AOX3, grossly intact for the purposes of this session. Judgment and insight: improving mildly Assessment Depressive disorder unspecified hx of PTSD alcohol abuse nicotine dependence Plan: -At this time patient DOES NOT currently meet criteria for inpatient psychiatric admission however will continue to follow along to see if patient eventually will meet criteria. -Would recommend the following medication changes/additions: librium 25mg tid for etoh w/d. With plans to decrease down to 25 mg twice a day afterwards. Continue with gradual titration down of Librium over the next couple of days. Naltrexone 50mg daily for etoh cravings. zoloft 25mg for mood/anxiety. remeron 30 mg qhs insonmia/mood/anxiety. -thiamine, FA and MVM for etoh use. -CIWA protocol with PRN Ativan for alcohol withdrawal. Continue to monitor vital signs. -neonatal social worker to provide patient with outpatient mental health/psychiatry resources for appropriate follow up upon discharge -Board Certified Behavioral Analyst spoke with patient about substance abuse and the harmful effects on medical and mental health, patient verbally understood and agreed. -neonatal social worker to provide patient substance use treatment resources including AA/NA meetings in the community. -neonatal social worker to provide patient with access line number to call for inpatient substance rehab -Psychiatry will sign off at this time. -Please contact with any questions.
[2020-10-12] MEDS: MIRTAZAPINE 15 MG TAB PO SCH (19:52)
[2020-10-12] MEDS ORDERED: LOPERAMIDE 2 MG CAP PO PRN (20:05)
[2020-10-13] MEDS: ACETAMINOPHEN TAB 500 MG TAB PO PRN (00:31)
[2020-10-13] MEDS: LORazepam 2 MG/ML INJ IV PRN ×3 (01:42→05:44)
[2020-10-13] MEDS: DEXTROSE 5%-0.45% NACL 1,000 ML IV SCH (03:38)
[2020-10-13] MEDS: THIAMINE 100 MG TAB PO SCH (05:44)
[2020-10-13] MEDS: PANTOPRAZOLE 40 MG TABLET PO SCH (05:44)
[2020-10-13] MEDS ORDERED: HALOPERIDOL LACTATE 5 MG/ML 1 ML VIAL IM PRN (07:11)
[2020-10-13] MEDS ORDERED: QUEtiapine 50 MG TAB PO PRN (07:53)
[2020-10-13 08:54] VITALS: BP 130/84; PULSE 90; RESP 20; TEMP 97.6
[2020-10-13 10:02] LABS: ALT 26 U/L (4-49); AST 33 U/L (17-59); African American GFR (CKD) >90 (>60 ml/min/1.73 sqM); Albumin 3.7 g/dL (3.5-5.0); Alkaline Phosphatase 91 U/L (38-126); Anion Gap 5 mmol/L; Blood Urea Nitrogen 3 mg/dL (9-20); Calcium 9.5 mg/dL (8.4-10.2); Carbon Dioxide 25 mmol/L (22-30); Chloride 110 mmol/L (98-107); Glucose 136 mg/dL (74-99); Magnesium 1.4 mg/dL (1.6-2.3); Non-African American GFR(CKD) >90 (>60 ml/min/1.73 sqM); Potassium 3.5 mmol/L (3.5-5.1); Sodium 140 mmol/L (137-145); Total Bilirubin 0.5 mg/dL (0.2-1.3); Total Protein 6.2 g/dL (6.3-8.2)
[2020-10-13] MEDS ORDERED: chlordiazePOXIDE 5 MG CAPSULE PO SCH (21:00)
--- NOTE | 2020-10-14 07:38 | P.DS ---
Providers Date of admission: 10/11/20 14:07 Attending physician: Paco Izquierdo Consults: 10/10/20 06:33 Consult Physician Urgent Consulting Provider: Ke Houston Consult Reason/Comments: alcohol, depression Do you want consulting provider notified?: Yes Primary care physician: Stated None Hospital Course: Please note patient was not discharge and he left AMA diagnoses: -non compliance -Alcohol intoxication and abuse, alcohol withdrawal -hypokalemia and hypomagnesemia, -Depression: psychiatrist evaluated the patient and he does not need inpatient psychiatric admission -Nicotine dependence Hospital course: Patient was admitted with alcohol intoxication appropriate boyfriend and alcohol withdrawal, patient was want to quit alcohol and he was treated per CIWA protocol with as needed Ativan and vitamins. Also patient has history of depression and alcohol abuse is been evaluated by psychiatrist and he found him does not need to be admitted to inpatient psychiatric unit. Psychiatric recommended Romeron on Zoloft to his regimen. Today patient wanted to leave AMA, I went and talked to the patient, he was fully awake and oriented to time, place and person, he knew why he is in the hospital. I explained to him the risks of leaving AMA and he verbalized understanding of these risks. Risks including but not limited to, withdrawal, arrhythmia, pneumonia and/or and again he verbalized understanding but did not want to stay in the hospital. His CIWA score at the time of discharge was 4. I discussed the case with the bedside nurse Xochitl and she has the same impression the patient is oriented 3. Also throughout the whole encounter his friend She was at bedside, she tried to talk to him to stay but he asked her not to prevent him from leaving. I told the patient is there anything I can prevent to from leaving AMA and he answered no I explained to the patient cannot discharge him on benzodiazepine taper as he is leaving AMA especially there is risk of taking opioids or drinking if he leaves the hospital which puts him at higher risk from medication side effect However he asked me to provide him with psychiatric medications on Zoloft and Romeron and vitamins which is provided for him, explained to him that these drips will not prevent him from going to withdrawal or other side effects from leaving AMA and he verbalized understanding again Based upon my evaluation patient has capacity to make medical decision. He left the hospital with his friend she told me she is going to drive for him Physical exam Gen: patient is a AAOx3, no distress CVS: S1-S2, RRR, no murmur Lungs: B/L CTA, no wheezing Abdomen: soft, no distention, no tenderness, positive bowel sounds Extremity: no leg edema or induration Neurologic: Cranial nerves are grossly intact. Strength 5/5. Sensation is intact. Meningeal signs are absent Time spent more than 35 minutes Patient Condition at Discharge: Fair Plan - Discharge Summary Discharge Rx Participant: Yes New Discharge Prescriptions: New Folic Acid 1 mg PO DAILY #30 tab Multivitamins, Thera [Multivitamin (formulary)] 1 each PO DAILY #30 tab Mirtazapine [Remeron] 30 mg PO HS #30 tab Sertraline [Zoloft] 25 mg PO DAILY #30 tab Thiamine [Vitamin B-1] 100 mg PO BID-W/MEALS #30 tab No Action Magnesium Oxide [Mag-Ox] 400 mg PO DAILY #30 tablet Discharge Medication List Magnesium Oxide [Mag-Ox] 400 mg PO DAILY #30 tablet 08/08/20 [Rx] Folic Acid 1 mg PO DAILY #30 tab 10/13/20 [Rx] Mirtazapine [Remeron] 30 mg PO HS #30 tab 10/13/20 [Rx] Multivitamins, Thera [Multivitamin (formulary)] 1 each PO DAILY #30 tab 10/13/20 [Rx] Sertraline [Zoloft] 25 mg PO DAILY #30 tab 10/13/20 [Rx] Thiamine [Vitamin B-1] 100 mg PO BID-W/MEALS #30 tab 10/13/20 [Rx] Follow up Appointment(s)/Referral(s): None,Stated [Primary Care Provider] - 1-2 days Patient Instructions/Handouts: Seizure/Epilepsy Discharge Instructions & Follow-Up, Alcohol Withdrawal (DC) Discharge Disposition: HOME SELF-CARE
== END 2020-10-13 08:55 | disposition left against medical advice (07) | DRG 894 ==
LOC: EC 22:09 → 6NMEDSUR 10-10 01:30 → 3SCARD 10-10 13:21 → OBSVTOIN 10-11 14:07
PROVIDERS: ADMIT Hospitalist; ATTEND Hospitalist
DX: F10.229 Alcohol dependence with intoxication, unspecified (principal); G93.41 Metabolic encephalopathy; F10.239 Alcohol dependence with withdrawal, unspecified; Y90.8 Blood alcohol level of 240 mg/100 ml or more; E83.42 Hypomagnesemia; E87.6 Hypokalemia; F17.210 Nicotine dependence, cigarettes, uncomplicated; F32.9 Major depressive disorder, single episode, unspecified; F43.10 Post-traumatic stress disorder, unspecified; K70.10 Alcoholic hepatitis without ascites; Z91.19 Patient's noncompliance with other medical treatment and regimen; Z56.0 Unemployment, unspecified; Z63.0 Problems in relationship with spouse or partner; Z81.8 Family history of other mental and behavioral disorders; Z80.9 Family history of malignant neoplasm, unspecified; Z65.3 Problems related to other legal circumstances
CPT/HCPCS: 36415; 80053; 80320; 81003; 82075; 83690; 83735; 84100; 84132; 85025; 85027; 96361; 96372; 96374; 99285

== ENCOUNTER 2021-03-03 11:57 | Inpatient (IN) | payer OTHER ==
[2021-03-03] MEDS ORDERED: SODIUM CHLORIDE 0.9% 1,000 ML with THIAMINE 100 MG, FOLIC ACID 1 MG IV ONE ×6 (13:05→20:00)
[2021-03-03] MEDS ORDERED: LORazepam 2 MG/ML INJ IV STA (13:06)
[2021-03-03] MEDS ORDERED: SODIUM CHLORIDE 0.9% 1,000 ML IV ONE (13:07)
--- NOTE | 2021-03-03 13:28 | ED ---
General Adult HPI - General Chief complaint: Alcohol Stated complaint: Alcohol Detoz Time Seen by Provider: 03/03/21 12:15 Source: patient, EMS, RN notes reviewed, old records reviewed Mode of arrival: EMS Limitations: altered mental status - History of Present Illness Initial comments: This is a 45-year-old male who presents emergency Department stating he is here because he stopped drinking alcohol 2 days ago. Patient states she's been nauseated and hasn't been eating much he also has the shakes and quite a bit of joint pain. Patient denies any chest pain or difficulty breathing. Patient denies any fever chills or cough. Patient denies any abdominal pain. Patient states he is finding it very difficult to walk as he is so weak. Patient denies any recent injury or trauma. - Related Data Home Medications Medication Instructions Recorded Confirmed Acetaminophen Tab [Tylenol Tab] 1,000 mg PO Q6HR PRN 03/03/21 03/03/21 Ibuprofen [Motrin Ib] 400 mg PO Q8H PRN 03/03/21 03/03/21 Multivitamins, Thera [Multivitamin 1 tab PO DAILY 03/03/21 03/03/21 (formulary)] Vitamin B Complex 1 cap PO DAILY 03/03/21 03/03/21 Allergies Allergy/AdvReac Type Severity Reaction Status Date / Time No Known Allergies Allergy Verified 03/03/21 12:42 Review of Systems ROS Statement: Those systems with pertinent positive or pertinent negative responses have been documented in the HPI. ROS Other: All systems not noted in ROS Statement are negative. Past Medical History Past Medical History: No Reported History Additional Past Medical History / Comment(s): depression, left sided weakness and numbness on left side History of Any Multi-Drug Resistant Organisms: None Reported Past Surgical History: Orthopedic Surgery Additional Past Surgical History / Comment(s): finger surgery Past Anesthesia/Blood Transfusion Reactions: No Reported Reaction Past Psychological History: Depression Smoking Status: Current every day smoker Past Alcohol Use History: Abuse, Daily Past Drug Use History: None Reported - Past Family History Father Brother(s) Family Medical History: Cancer Mother Family Medical History: Cancer General Exam - General Exam Comments Initial Comments: GENERAL: Patient is well-developed and well-nourished. Patient is nontoxic and well- hydrated and is in mild distress. ENT: Neck is soft and supple. No significant lymphadenopathy is noted. Oropharynx is clear. Moist mucous membranes. Neck has full range of motion without eliciting any pain. EYES: The sclera were anicteric and conjunctiva were pink and moist. Extraocular movements were intact and pupils were equal round and reactive to light. Eyelids were unremarkable. PULMONARY: Unlabored respirations. Good breath sounds bilaterally. No audible rales rhonchi or wheezing was noted. CARDIOVASCULAR: There is a regular rate and rhythm without any murmurs gallops or rubs. ABDOMEN: Patient has a large liver on palpation it is vertical quadrant is mildly tender. SKIN: Skin is clear with no lesions or rashes and otherwise unremarkable. NEUROLOGIC: Patient is alert and oriented x3. Cranial nerves II through XII are grossly intact. Motor and sensory are also intact. Normal speech, volume and content. Symmetrical smile. MUSCULOSKELETAL: Normal extremities with adequate strength and full range of motion. LYMPHATICS: No significant lymphadenopathy is noted PSYCHIATRIC: Normal psychiatric evaluation. Patient denies any suicidal homicidal ideations. Limitations: altered mental status Course Vital Signs 03/03/21 12:16 Temperature 98.1 F Pulse Rate 112 H Respiratory 18 Rate Blood Pressure 124/85 O2 Sat by Pulse 98 Oximetry Medical Decision Making - Medical Decision Making EKG shows a sinus tachycardia with occasional PAC at 113 bpm CA interval 132 QRS is 70 QT interval 320 QTC is 449. Patient's EKG shows no ST segment elevation or depression. I spoke with some physicians and they agreed to admit the patient I admitted the patient wrote admitting orders. Patient was not having any chest pain or difficulty breathing and because of his anemia I did not give the patient aspirin at this point in time. I did repeat troponins. - Lab Data Result diagrams: 03/03/21 13:56 03/03/21 13:56 Lab Results 03/03/21 03/03/21 03/03/21 Range/Units 13:56 13:56 13:56 WBC 15.6 H (3.8-10.6) k/uL RBC 2.20 L (4.30-5.90) m/uL Hgb 8.9 L (13.0-17.5) gm/dL Hct 26.2 L (39.0-53.0) % MCV 118.9 H (80.0-100.0) fL MCH 40.6 H (25.0-35.0) pg MCHC 34.1 (31.0-37.0) g/dL RDW 16.8 H (11.5-15.5) % Plt Count 396 (150-450) k/uL MPV 9.3 Neutrophils % (Manual) 74 % Band Neuts % (Manual) 2 % Lymphocytes % (Manual) 16 % Monocytes % (Manual) 8 % Eosinophils % (Manual) 2 % Neutrophils # (Manual) 11.80 H (1.3-7.7) k/uL Lymphocytes # (Manual) 2.50 (1.0-4.8) k/uL Monocytes # (Manual) 1.25 H (0-1.0) k/uL Eosinophils # (Manual) 0.31 (0-0.7) k/uL Nucleated RBCs 73 H (0-0) /100 WBC Manual Slide Review Performed Anisocytosis Slight Macrocytosis Marked A PT 11.3 (9.0-12.0) sec INR 1.1 (<1.2) APTT 21.6 L (22.0-30.0) sec Sodium 133 L (137-145) mmol/L Potassium 4.0 (3.5-5.1) mmol/L Chloride 89 L (98-107) mmol/L Carbon Dioxide 37 H (22-30) mmol/L Anion Gap 7 mmol/L BUN 46 H (9-20) mg/dL Creatinine 0.84 (0.66-1.25) mg/dL Est GFR (CKD-EPI)AfAm >90 (>60 ml/min/1.73 sqM) Est GFR (CKD-EPI)NonAf >90 (>60 ml/min/1.73 sqM) Glucose 130 H (74-99) mg/dL Calcium 8.7 (8.4-10.2) mg/dL Magnesium 1.8 (1.6-2.3) mg/dL Total Bilirubin 2.2 H (0.2-1.3) mg/dL AST 273 H (17-59) U/L ALT 205 H (4-49) U/L Alkaline Phosphatase 154 H (38-126) U/L Troponin I (0.000-0.034) ng/mL Total Protein 6.0 L (6.3-8.2) g/dL Albumin 3.2 L (3.5-5.0) g/dL Amylase 102 (30-110) U/L Lipase 418 H (23-300) U/L Serum Alcohol <10 mg/dL 03/03/21 Range/Units 13:56 WBC (3.8-10.6) k/uL RBC (4.30-5.90) m/uL Hgb (13.0-17.5) gm/dL Hct (39.0-53.0) % MCV (80.0-100.0) fL MCH (25.0-35.0) pg MCHC (31.0-37.0) g/dL RDW (11.5-15.5) % Plt Count (150-450) k/uL MPV Neutrophils % (Manual) % Band Neuts % (Manual) % Lymphocytes % (Manual) % Monocytes % (Manual) % Eosinophils % (Manual) % Neutrophils # (Manual) (1.3-7.7) k/uL Lymphocytes # (Manual) (1.0-4.8) k/uL Monocytes # (Manual) (0-1.0) k/uL Eosinophils # (Manual) (0-0.7) k/uL Nucleated RBCs (0-0) /100 WBC Manual Slide Review Anisocytosis Macrocytosis PT (9.0-12.0) sec INR (<1.2) APTT (22.0-30.0) sec Sodium (137-145) mmol/L Potassium (3.5-5.1) mmol/L Chloride (98-107) mmol/L Carbon Dioxide (22-30) mmol/L Anion Gap mmol/L BUN (9-20) mg/dL Creatinine (0.66-1.25) mg/dL Est GFR (CKD-EPI)AfAm (>60 ml/min/1.73 sqM) Est GFR (CKD-EPI)NonAf (>60 ml/min/1.73 sqM) Glucose (74-99) mg/dL Calcium (8.4-10.2) mg/dL Magnesium (1.6-2.3) mg/dL Total Bilirubin (0.2-1.3) mg/dL AST (17-59) U/L ALT (4-49) U/L Alkaline Phosphatase (38-126) U/L Troponin I 0.115 H* (0.000-0.034) ng/mL Total Protein (6.3-8.2) g/dL Albumin (3.5-5.0) g/dL Amylase (30-110) U/L Lipase (23-300) U/L Serum Alcohol mg/dL Critical Care Time Critical Care Time: Yes Total Critical Care Time: 35 Disposition Clinical Impression: Alcohol abuse, Alcohol withdrawal syndrome, Anemia, Dehydration, Non-STEMI (non-ST elevated myocardial infarction) Disposition: ADMITTED IP TO THIS HOSP Referrals: None,Stated [Primary Care Provider] - 1-2 days Time of Disposition: 15:33
[2021-03-03 14:11] LABS: Anisocytosis Slight; HCT 26.2 % (39.0-53.0); HGB 8.9 gm/dL (13.0-17.5); MCH 40.6 pg (25.0-35.0); MCHC 34.1 g/dL (31.0-37.0); MCV 118.9 fL (80.0-100.0); Macrocytosis Marked; Mean Platelet Volume 9.3; Platelet Count 396 k/uL (150-450); RDW 16.8 % (11.5-15.5)
[2021-03-03 14:31] LABS: Chloride 89 mmol/L (98-107)
[2021-03-03 14:33] LABS: ALT 205 U/L (4-49); AST 273 U/L (17-59); African American GFR (CKD) >90 (>60 ml/min/1.73 sqM); Albumin 3.2 g/dL (3.5-5.0); Alcohol <10 mg/dL; Alkaline Phosphatase 154 U/L (38-126); Amylase 102 U/L (30-110); Anion Gap 7 mmol/L; Blood Urea Nitrogen 46 mg/dL (9-20); Calcium 8.7 mg/dL (8.4-10.2); Carbon Dioxide 37 mmol/L (22-30); Glucose 130 mg/dL (74-99); INR 1.1 (<1.2); Lipase 418 U/L (23-300); Magnesium 1.8 mg/dL (1.6-2.3); Non-African American GFR(CKD) >90 (>60 ml/min/1.73 sqM); Partial Thromboplastin Time 21.6 sec (22.0-30.0); Prothrombin Time 11.3 sec (9.0-12.0); Sodium 133 mmol/L (137-145); Total Bilirubin 2.2 mg/dL (0.2-1.3)
[2021-03-03 15:14] LABS: Band Neutrophils % 2 %; Eosinophils # (M) 0.31 k/uL (0-0.7); Monocytes # (M) 1.25 k/uL (0-1.0); Neutrophils % (M) 74 %; Nucleated Red Blood Cells 73 /100 WBC (0-0); Total Cells Counted 200; WBC 15.6 k/uL (3.8-10.6)
--- NOTE | 2021-03-03 15:30 | XR ---
KUB HISTORY: Abdominal pain Frontal KUB and 2 images There is some spondylosis noted in the visualized spine. No evident bowel obstruction or pneumoperito neum. There is retained fecal debris within the rectum which appears possibly distended. No evident p neumoperitoneum. No pathologic calcification evident. There is overlying artifact suspected. IMPRESSION: Correlate to exclude fecal impaction.
[2021-03-03] MEDS ORDERED: THIAMINE 100 MG/ML 2 ML VIAL IM STA (15:37)
[2021-03-03] MEDS ORDERED: LORazepam 2 MG/ML INJ IV PRN (15:37)
[2021-03-03] MEDS ORDERED: ONDANSETRON 4 MG/2 ML VIAL IVP PRN (15:37)
--- NOTE | 2021-03-03 16:28 | XR ---
EXAMINATION TYPE: XR chest 1V portable DATE OF EXAM: 03/03/2021 COMPARISON: NONE HISTORY: Shortness of breath TECHNIQUE: Single frontal view of the chest is obtained. FINDINGS: Patient is rotated. No evident airspace disease, pneumothorax, or pleural effusion. Cardia c mediastinal silhouette is within normal limits accounting for technique. Bone mineralization within normal limits. IMPRESSION: No acute process.
--- NOTE | 2021-03-03 17:26 | P.HPIM ---
History of Present Illness Chief Complaint: Alcohol withdrawal treatment She is a 45-year-old male who is my understanding came to emergency department to be evaluated and treated for alcohol withdrawal symptoms. Patient is a heavy alcoholic she drinks about half a pint of water daily. Will drink was about 2 days ago. Patient had multiple attempts of rehab and relapses. Multiple admissions for alcohol and depression. He never had DTs or alcohol withdrawal seizures. Apparently he stopped 2 days ago and also to fear of withdrawal seeking to MRSA department. His only symptom was nausea and anxiety. He had poor appetite and poor oral intake over the last 2 days. He had significant alcohol cravings. Currently is not possible to fully interview this patient is here to sit up in the emergency department and he is lethargic and sleepy. His vital signs appear stable otherwise. Blood work is well for elevation in liver enzymes, elevated WBCs and anemia. Chest x-ray without acute findings x-ray of the abdomen KUB with constipation. Review of Systems All systems: negative Past Medical History Past Medical History: No Reported History Additional Past Medical History / Comment(s): depression, left sided weakness and numbness on left side History of Any Multi-Drug Resistant Organisms: None Reported Past Surgical History: Orthopedic Surgery Additional Past Surgical History / Comment(s): finger surgery Past Anesthesia/Blood Transfusion Reactions: No Reported Reaction Past Psychological History: Depression Smoking Status: Current every day smoker Past Alcohol Use History: Abuse, Daily Past Drug Use History: None Reported - Past Family History Father Brother(s) Family Medical History: Cancer Mother Family Medical History: Cancer Medications and Allergies Home Medications Medication Instructions Recorded Confirmed Type Acetaminophen Tab [Tylenol Tab] 1,000 mg PO Q6HR PRN 03/03/21 03/03/21 History Ibuprofen [Motrin Ib] 400 mg PO Q8H PRN 03/03/21 03/03/21 History Multivitamins, Thera [Multivitamin 1 tab PO DAILY 03/03/21 03/03/21 History (formulary)] Vitamin B Complex 1 cap PO DAILY 03/03/21 03/03/21 History Allergies Allergy/AdvReac Type Severity Reaction Status Date / Time No Known Allergies Allergy Verified 03/03/21 12:42 Physical Exam Vitals: Vital Signs Temp Pulse Resp BP Pulse Ox 03/03/21 16:20 98 17 117/78 99 03/03/21 12:16 98.1 F 112 H 18 124/85 98 Intake and Output 03/03/21 03/03/21 03/03/21 06:59 14:59 22:59 Other: Weight 62.142 kg Patient is lethargic and opens eyes when called by name and normal voice tone, patient looks much older for his stated age Head and neck: No particular trauma neck is supple without any rigidity no facial asymmetry I do not see any scleral icterus oropharyngeal mucosa appears dry on the particular lesions no neck masses Lungs: Breath sounds are present bilateral no wheezing no rhonchi Cardiovascular: [place] [address] regular S1-S2 Abdomen: He has bowel sounds throughout abdomen appreciated any organomegaly is soft nontender Extremities no peripheral edema no cyanosis, no asterixis Neurological: Pupils are reactive to light no nystagmus pupils are midline no facial asymmetry motor strength is normal for extremities no ankle clonus DTR pulses are 1+ bilaterally Results CBC & Chem 7: 03/03/21 13:56 03/03/21 13:56 Labs: Abnormal Lab Results - Last 24 Hours (Table) 03/03/21 03/03/21 03/03/21 Range/Units 13:56 13:56 13:56 WBC 15.6 H (3.8-10.6) k/uL RBC 2.20 L (4.30-5.90) m/uL Hgb 8.9 L (13.0-17.5) gm/dL Hct 26.2 L (39.0-53.0) % MCV 118.9 H (80.0-100.0) fL MCH 40.6 H (25.0-35.0) pg RDW 16.8 H (11.5-15.5) % Neutrophils # (Manual) 11.80 H (1.3-7.7) k/uL Monocytes # (Manual) 1.25 H (0-1.0) k/uL Nucleated RBCs 73 H (0-0) /100 WBC Macrocytosis Marked A APTT 21.6 L (22.0-30.0) sec Sodium 133 L (137-145) mmol/L Chloride 89 L (98-107) mmol/L Carbon Dioxide 37 H (22-30) mmol/L BUN 46 H (9-20) mg/dL Glucose 130 H (74-99) mg/dL Total Bilirubin 2.2 H (0.2-1.3) mg/dL AST 273 H (17-59) U/L ALT 205 H (4-49) U/L Alkaline Phosphatase 154 H (38-126) U/L Troponin I (0.000-0.034) ng/mL Total Protein 6.0 L (6.3-8.2) g/dL Albumin 3.2 L (3.5-5.0) g/dL Lipase 418 H (23-300) U/L 03/03/21 03/03/21 Range/Units 13:56 16:06 WBC (3.8-10.6) k/uL RBC (4.30-5.90) m/uL Hgb (13.0-17.5) gm/dL Hct (39.0-53.0) % MCV (80.0-100.0) fL MCH (25.0-35.0) pg RDW (11.5-15.5) % Neutrophils # (Manual) (1.3-7.7) k/uL Monocytes # (Manual) (0-1.0) k/uL Nucleated RBCs (0-0) /100 WBC Macrocytosis APTT (22.0-30.0) sec Sodium (137-145) mmol/L Chloride (98-107) mmol/L Carbon Dioxide (22-30) mmol/L BUN (9-20) mg/dL Glucose (74-99) mg/dL Total Bilirubin (0.2-1.3) mg/dL AST (17-59) U/L ALT (4-49) U/L Alkaline Phosphatase (38-126) U/L Troponin I 0.115 H* 0.098 H* (0.000-0.034) ng/mL Total Protein (6.3-8.2) g/dL Albumin (3.5-5.0) g/dL Lipase (23-300) U/L Assessment and Plan Plan: #Acute alcoholic withdrawal [facility] protocol IV fluids Thiamine Multivitamin #Elevated troponin No report of chest pain or shortness of breath EKG without acute changes Cardiology consultation and echo ordered #Elevated liver enzymes Alcoholic liver disease suspected Repeat liver enzymes in the morning Viral hepatitis studies #Anemia Acute on chronic Elevated MCV Continue multivitamin Rule out GI bleed Continue PPI IV Repeat hemoglobin this evening #Depression Evaluated by psychiatrist Patient will be admitted inpatient Full code
[2021-03-03] MEDS: THIAMINE 100 MG TAB PO SCH (18:42)
[2021-03-03] MEDS: LORazepam 2 MG/ML INJ IV PRN ×3 (18:57→23:08)
[2021-03-03] MEDS: PANTOPRAZOLE 40 MG/10 ML VIAL IVP SCH (21:02)
[2021-03-04 05:02] LABS: Appearance,Urine Cloudy (Clear); Bacteria,Urine Rare /hpf; Bilirubin,Urine 1+ (Negative); Blood,Urine Large (Negative); Cellular Casts,Urine 1 /lpf (0); Color,Urine Dark Brown; Glucose,Urine (UA) Negative (Negative); Granular Casts,Urine 1 /lpf (0); Hyaline Casts,Urine 8 /lpf (0-2); Ketones,Urine Negative (Negative); Leukocyte Esterase,Urine Negative (Negative); Mucus,Urine Rare /hpf; Nitrite,Urine Negative (Negative); PH, Urine 5.5 (5.0-8.0); Protein,Urine 1+ (Negative); RBC,Urine 3 /hpf (0-5); Squamous Epithelial Cell,Urine <1 /hpf (0-4); WBC,Urine 5 /hpf (0-5)
[2021-03-04] MEDS: THIAMINE 100 MG TAB PO SCH (05:25)
[2021-03-04 08:00] LABS: Anisocytosis Slight; HCT 21.9 % (39.0-53.0); Hypochromasia Slight; MCH 40.6 pg (25.0-35.0); MCHC 33.7 g/dL (31.0-37.0); MCV 120.4 fL (80.0-100.0); Macrocytosis Marked; Mean Platelet Volume 8.9; Platelet Count 380 k/uL (150-450); RBC 1.82 m/uL (4.30-5.90); RDW 17.5 % (11.5-15.5); WBC 20.3 k/uL (3.8-10.6)
[2021-03-04 08:11] LABS: ALT 174 U/L (4-49); AST 204 U/L (17-59); African American GFR (CKD) >90 (>60 ml/min/1.73 sqM); Albumin 2.5 g/dL (3.5-5.0); Alkaline Phosphatase 131 U/L (38-126); Anion Gap 0 mmol/L; Blood Urea Nitrogen 32 mg/dL (9-20); Carbon Dioxide 38 mmol/L (22-30); Chloride 101 mmol/L (98-107); Glucose 91 mg/dL (74-99); Magnesium 1.8 mg/dL (1.6-2.3); Non-African American GFR(CKD) >90 (>60 ml/min/1.73 sqM); Potassium 3.1 mmol/L (3.5-5.1); Sodium 139 mmol/L (137-145); Total Bilirubin 1.7 mg/dL (0.2-1.3)
[2021-03-04 08:15] LABS: HGB 7.4 gm/dL (13.0-17.5)
[2021-03-04] MEDS ORDERED: atenoloL 25 MG TAB PO SCH (09:00)
--- NOTE | 2021-03-04 10:03 | US ---
EXAMINATION TYPE: US abdomen limited DATE OF EXAM: 03/04/2021 COMPARISON: NONE CLINICAL HISTORY: elevated liver enzymes. ETOH. EXAM MEASUREMENTS: Liver Length: 25.6 cm Gallbladder Wall: 0.2 cm CBD: 0.5 cm Right Kidney: 11.9 x 4.4 x 4.8 cm Patient unable to wake up to help examiner during exam. Technically difficult. Pancreas: Obscured by bowel gas Liver: grossly attenuating, limiting visualization, enlarged Gallbladder: sludge, low-level internal echoes Evidence for sonographic Wood's sign: no CBD: wnl Right Kidney: wnl IMPRESSION: Hepatomegaly, correlate for hepatic steatosis, hepatocellular disease. Suspect tumefactiv e sludge is present within the gallbladder, limited exam
[2021-03-04] MEDS: SODIUM CHLORIDE 0.9% 1,000 ML IV SCH ×8 (10:17→23:14)
[2021-03-04] MEDS: PANTOPRAZOLE 40 MG/10 ML VIAL IVP SCH ×2 (10:19→19:36)
--- NOTE | 2021-03-04 11:21 | P.CRDCN ---
History of Present Illness Consult date: 03/04/21 Chief complaint: Change in mental status History of present illness: This is this 45 year old gentleman who we consulted to see in the emergency department for further evaluation of abnormal cardiac enzymes. The patient is alcohol drinker excessively and currently he is in withdrawal face. He is confused and the history was taken from a family member who was at bedside. The patient is unable to provide any history. Apparently the patient drinks alcohol excessively but for the last 2-3 days he has been going through withdrawal symptoms was a change in mental status on sometimes agitation as well as pain in the upper and lower extremities. No symptoms of chest pain or chest discomfort. No shortness of breath. We consulted to see the patient mainly because of abnormal cardiac enzymes was mildly abnormal troponin which seems to be flat across the board. The EKG showed sinus tachycardia with diffuse nonspecific ST and T wave abnormalities. Further clarification indicate that the patient is anemic as well. He has microcytic anemia. No history of coronary artery disease or congestive heart failure or cardiac arrhythmia and the patient seems to be euvolemic on examination. Also he underwent her function test and that came in to be very abnormal. Currently the patient is getting treated for alcohol withdrawal symptoms fashion DVT. An echocardiogram was ordered and will follow-up on that. He is receiving atenolol as an outpatient and that was reinitiated. Past Medical History Past Medical History: No Reported History Additional Past Medical History / Comment(s): depression, left sided weakness and numbness on left side History of Any Multi-Drug Resistant Organisms: None Reported Past Surgical History: Orthopedic Surgery Additional Past Surgical History / Comment(s): finger surgery Past Anesthesia/Blood Transfusion Reactions: No Reported Reaction Past Psychological History: Depression Smoking Status: Current every day smoker Past Alcohol Use History: Abuse, Daily Past Drug Use History: None Reported - Past Family History Father Brother(s) Family Medical History: Cancer Mother Family Medical History: Cancer Medications and Allergies Home Medications Medication Instructions Recorded Confirmed Type Acetaminophen Tab [Tylenol Tab] 1,000 mg PO Q6HR PRN 03/03/21 03/03/21 History Ibuprofen [Motrin Ib] 400 mg PO Q8H PRN 03/03/21 03/03/21 History Multivitamins, Thera [Multivitamin 1 tab PO DAILY 03/03/21 03/03/21 History (formulary)] Vitamin B Complex 1 cap PO DAILY 03/03/21 03/03/21 History Allergies Allergy/AdvReac Type Severity Reaction Status Date / Time No Known Allergies Allergy Verified 03/03/21 12:42 Physical Exam Vitals: Vital Signs Temp Pulse Pulse Resp BP BP Pulse Ox 03/04/21 08:00 101 H 16 113/75 94 L 03/04/21 04:00 98.1 F 98 16 111/92 98 03/04/21 02:00 20 03/04/21 00:00 98.2 F 96 20 107/74 98 03/03/21 21:44 98 F 115 H 16 128/77 95 03/03/21 20:00 16 03/03/21 18:37 110 H 18 115/86 95 03/03/21 16:20 98 17 117/78 99 03/03/21 12:16 98.1 F 112 H 18 124/85 98 Intake and Output 03/03/21 03/04/21 03/04/21 22:59 06:59 14:59 Output Total 800 Balance -800 Output: Urine 0 Post Void Residual 800 - Constitutional General appearance: no acute distress - Respiratory Respiratory: bilateral: CTA - Cardiovascular Rhythm: regular Heart sounds: normal: S1, S2 Results 03/04/21 07:37 03/04/21 07:37 Cardiac Enzymes 03/03/21 03/03/21 03/03/21 Range/Units 13:56 13:56 16:06 AST 273 H (17-59) U/L Troponin I 0.115 H* 0.098 H* (0.000-0.034) ng/mL 03/03/21 03/04/21 Range/Units 20:23 07:37 AST 204 H (17-59) U/L Troponin I 0.098 H* (0.000-0.034) ng/mL Coagulation 03/03/21 Range/Units 13:56 PT 11.3 (9.0-12.0) sec APTT 21.6 L (22.0-30.0) sec CBC 03/03/21 03/04/21 Range/Units 13:56 07:37 WBC 15.6 H 20.3 H (3.8-10.6) k/uL RBC 2.20 L 1.82 L (4.30-5.90) m/uL Hgb 8.9 L 7.4 L D (13.0-17.5) gm/dL Hct 26.2 L 21.9 L (39.0-53.0) % Plt Count 396 380 (150-450) k/uL Comprehensive Metabolic Panel 03/03/21 03/04/21 Range/Units 13:56 07:37 Sodium 133 L 139 (137-145) mmol/L Potassium 4.0 3.1 L (3.5-5.1) mmol/L Chloride 89 L 101 (98-107) mmol/L Carbon Dioxide 37 H 38 H (22-30) mmol/L BUN 46 H 32 H (9-20) mg/dL Creatinine 0.84 0.70 (0.66-1.25) mg/dL Glucose 130 H 91 (74-99) mg/dL Calcium 8.7 8.0 L (8.4-10.2) mg/dL AST 273 H 204 H (17-59) U/L ALT 205 H 174 H (4-49) U/L Alkaline Phosphatase 154 H 131 H (38-126) U/L Total Protein 6.0 L 5.0 L (6.3-8.2) g/dL Albumin 3.2 L 2.5 L (3.5-5.0) g/dL Current Medications Generic Name Dose Route Start Last Admin Trade Name Freq PRN Reason Stop Dose Admin Atenolol 25 mg 03/04/21 09:00 Atenolol 25 Mg Tab PO DAILY VICTOR MANUEL Sodium Chloride 1,000 mls @ 75 mls/hr 03/04/21 08:45 03/04/21 10:17 Saline 0.9% IV 75 mls/hr .[id number] VICTOR MANUEL Administration Lorazepam 1 mg 03/03/21 15:37 03/03/21 18:57 Lorazepam 2 Mg/Ml Inj IV 1 mg Q2HR PRN Administration CIWA 8 or 9 Lorazepam 1 mg 03/03/21 15:37 03/03/21 23:08 Lorazepam 2 Mg/Ml Inj IV 1 mg Q1HR PRN Administration CIWA 10 to 15 Lorazepam 2 mg 03/03/21 15:37 Lorazepam 2 Mg/Ml Inj IV 03/05/21 15:37 Q10M PRN CIWA 16 or higher Ondansetron HCl 4 mg 03/03/21 15:37 Ondansetron 4 Mg/2 Ml Vial IVP Q6HR PRN Nausea And Vomiting Pantoprazole Sodium 40 mg 03/03/21 21:00 03/04/21 10:19 Pantoprazole 40 Mg/10 Ml Vial IVP 40 mg BID VICTOR MANUEL Administration Thiamine HCl 100 mg 03/03/21 17:30 03/04/21 05:25 Thiamine 100 Mg Tab PO Not Given BID-W/MEALS VICTOR MANUEL Intake and Output 03/03/21 03/04/21 03/04/21 22:59 06:59 14:59 Output Total 800 Balance -800 Output: Urine 0 Post Void Residual 800 03/04/21 07:37 03/04/21 07:37 Assessment and Plan Assessment: Assessment # alcohol withdrawal symptoms #2 sinus tachycardia secondary to the above #3 evidence of myocardial injury without any evidence of ischemia #4 microcytic anemia #5 abnormal liver function tests Plan #1 agree to start the patient on the current dose of atenolol #2 add aspirin to the current medical regimen #3 obtain an echocardiogram was Doppler #4 uptitrate the dose of beta ernesto in the next 24-48 hours #5 please note that the mildly abnormal troponin is likely secondary to tachycardia as well as anemia. Severe CAD to be ruled out probably as an outpatient.
[2021-03-04] MEDS: LORazepam 2 MG/ML INJ IV PRN ×4 (11:31→23:12)
--- NOTE | 2021-03-04 12:58 | P.PN ---
Subjective 45-year-old male history of severe alcoholism came to emergency department with nausea and vomiting. All symptoms seeking treatment of withdrawal symptoms. Last drink was 2 days prior to admission. He was receiving abdomen emergency department. He was also complaining of some diffuse musculoskeletal discomfort. Found to have elevated liver enzymes, elevated troponin no other complaints. I saw patient today he seems groggy and lethargic. He opens his eyes when called by name. When asked if he is having any discomfort stating that he has some discomfort in his epigastric area. No further nausea or vomiting. No melena no blood in the stool. He has been afebrile. He is on room air. No coughing. At patient's bedside I encountered his friend who told me that for her patient was earlier communicating with her appropriately. He was complaining at time of anything in particular. Chart review showing the patient received total of 3 mg of Ativan since admission the last dose was around midnight. Objective - Vital Signs Vital signs: Vital Signs Temp 98.1 F 03/04/21 04:00 Pulse 112 H 03/04/21 11:37 Resp 18 03/04/21 11:37 BP 106/80 03/04/21 11:37 Pulse Ox 94 L 03/04/21 11:37 Intake & Output 03/03/21 03/04/21 03/04/21 18:59 06:59 18:59 Output Total 800 Balance -800 Weight 62.142 kg Output: Urine 0 Post Void Residual 800 - Exam Patient is lethargic, he opens eyes when called by name, he is following commands he does not appear to be in any distress Head and neck: Sclerae are anicteric, no facial asymmetry oropharyngeal mucosa seems moist with poor dentition on neck masses or JVD Lungs nonlabored breathing clear to auscultation Cardiovascular tachycardic regular in the range of 100 S1-S2 Abdomen: Bowel sounds are present throughout, he does some epigastric tenderness to deep palpation no right upper quadrant tenderness otherwise soft no rigidity no guarding no flank tenderness Extremities: No peripheral edema no cyanosis warm well perfused Neurological: He seems lethargic is following, is moving all 4 extremities pupils are round and reactive to light eyes are in midline no facial asymmetry no ankle clonus was DTRs patellar 1+ bilateral him not able to assess properly for asterixis - Labs CBC & Chem 7: 03/04/21 07:37 03/04/21 07:37 Labs: Abnormal Lab Results - Last 24 Hours (Table) 03/03/21 03/03/21 03/03/21 Range/Units 13:56 13:56 13:56 WBC 15.6 H (3.8-10.6) k/uL RBC 2.20 L (4.30-5.90) m/uL Hgb 8.9 L (13.0-17.5) gm/dL Hct 26.2 L (39.0-53.0) % MCV 118.9 H (80.0-100.0) fL MCH 40.6 H (25.0-35.0) pg RDW 16.8 H (11.5-15.5) % Neutrophils # (Manual) 11.80 H (1.3-7.7) k/uL Monocytes # (Manual) 1.25 H (0-1.0) k/uL Nucleated RBCs 73 H (0-0) /100 WBC Macrocytosis Marked A APTT 21.6 L (22.0-30.0) sec Sodium 133 L (137-145) mmol/L Potassium (3.5-5.1) mmol/L Chloride 89 L (98-107) mmol/L Carbon Dioxide 37 H (22-30) mmol/L BUN 46 H (9-20) mg/dL Glucose 130 H (74-99) mg/dL Calcium (8.4-10.2) mg/dL Total Bilirubin 2.2 H (0.2-1.3) mg/dL AST 273 H (17-59) U/L ALT 205 H (4-49) U/L Alkaline Phosphatase 154 H (38-126) U/L Troponin I (0.000-0.034) ng/mL Total Protein 6.0 L (6.3-8.2) g/dL Albumin 3.2 L (3.5-5.0) g/dL Lipase 418 H (23-300) U/L Urine Protein (Negative) Urine Blood (Negative) Urine Bilirubin (Negative) Urine Bacteria (None) /hpf Hyaline Casts (0-2) /lpf Urine Mucus (None) /hpf 03/03/21 03/03/21 03/03/21 Range/Units 13:56 16:06 20:23 WBC (3.8-10.6) k/uL RBC (4.30-5.90) m/uL Hgb (13.0-17.5) gm/dL Hct (39.0-53.0) % MCV (80.0-100.0) fL MCH (25.0-35.0) pg RDW (11.5-15.5) % Neutrophils # (Manual) (1.3-7.7) k/uL Monocytes # (Manual) (0-1.0) k/uL Nucleated RBCs (0-0) /100 WBC Macrocytosis APTT (22.0-30.0) sec Sodium (137-145) mmol/L Potassium (3.5-5.1) mmol/L Chloride (98-107) mmol/L Carbon Dioxide (22-30) mmol/L BUN (9-20) mg/dL Glucose (74-99) mg/dL Calcium (8.4-10.2) mg/dL Total Bilirubin (0.2-1.3) mg/dL AST (17-59) U/L ALT (4-49) U/L Alkaline Phosphatase (38-126) U/L Troponin I 0.115 H* 0.098 H* 0.098 H* (0.000-0.034) ng/mL Total Protein (6.3-8.2) g/dL Albumin (3.5-5.0) g/dL Lipase (23-300) U/L Urine Protein (Negative) Urine Blood (Negative) Urine Bilirubin (Negative) Urine Bacteria (None) /hpf Hyaline Casts (0-2) /lpf Urine Mucus (None) /hpf 03/04/21 03/04/21 03/04/21 Range/Units 04:28 07:37 07:37 WBC 20.3 H (3.8-10.6) k/uL RBC 1.82 L (4.30-5.90) m/uL Hgb 7.4 L D (13.0-17.5) gm/dL Hct 21.9 L (39.0-53.0) % MCV 120.4 H (80.0-100.0) fL MCH 40.6 H (25.0-35.0) pg RDW 17.5 H (11.5-15.5) % Neutrophils # (Manual) (1.3-7.7) k/uL Monocytes # (Manual) (0-1.0) k/uL Nucleated RBCs (0-0) /100 WBC Macrocytosis Marked A APTT (22.0-30.0) sec Sodium (137-145) mmol/L Potassium 3.1 L (3.5-5.1) mmol/L Chloride (98-107) mmol/L Carbon Dioxide 38 H (22-30) mmol/L BUN 32 H (9-20) mg/dL Glucose (74-99) mg/dL Calcium 8.0 L (8.4-10.2) mg/dL Total Bilirubin 1.7 H (0.2-1.3) mg/dL AST 204 H (17-59) U/L ALT 174 H (4-49) U/L Alkaline Phosphatase 131 H (38-126) U/L Troponin I (0.000-0.034) ng/mL Total Protein 5.0 L (6.3-8.2) g/dL Albumin 2.5 L (3.5-5.0) g/dL Lipase (23-300) U/L Urine Protein 1+ H (Negative) Urine Blood Large H (Negative) Urine Bilirubin 1+ H (Negative) Urine Bacteria Rare H (None) /hpf Hyaline Casts 8 H (0-2) /lpf Urine Mucus Rare H (None) /hpf Assessment and Plan Plan: #Acute alcoholic withdrawal [facility] protocol IV fluids Thiamine Multivitamin #Acute toxic metabolic encephalopathy This patient seems lethargic and I think it's out of proportion of abdomen he received Neurological examination is nonfocal There is no report of headache vision changes or vomiting overnight Ordered ammonia level and ABGs as his serum bicarb is elevated despite hydration with normal saline Ordered CT of the head #SIRS Rule out sepsis Leukocytosis trending up UA reviewed Obtain blood cultures Repeat chest x-ray, rule out aspiration Obtain infectious disease consultation #Diffuse myalgia UA showing positivity for blood but negative RBCs Check CPK #Elevated troponin No report of chest pain or shortness of breath EKG without acute changes Cardiology consultation and echo ordered #Elevated liver enzymes Alcoholic liver disease suspected Trend liver enzymes Ultrasound right upper quadrant Viral hepatitis studies #Anemia Acute on chronic Elevated MCV Continue multivitamin Rule out GI bleed Continue PPI IV Serial hemoglobin Stool for occult blood #Acute pancreatitis Continue IV fluids Obtain imaging of the abdomen #Depression Evaluated by psychiatrist
[2021-03-04] MEDS ORDERED: SODIUM CHLORIDE 0.9% 500 ML 500 ML IV ONE (13:01)
[2021-03-04 13:58] LABS: Anisocytosis Slight; HCT 22.2 % (39.0-53.0); HGB 7.4 gm/dL (13.0-17.5); Hypochromasia Slight; MCHC 33.6 g/dL (31.0-37.0); MCV 121.9 fL (80.0-100.0); Macrocytosis Marked; Mean Platelet Volume 8.8; Platelet Count 384 k/uL (150-450); RBC 1.82 m/uL (4.30-5.90); RDW 17.3 % (11.5-15.5); WBC 19.1 k/uL (3.8-10.6)
--- NOTE | 2021-03-04 14:19 | ECHOF ---
Referral Reason:elevated trop MEASUREMENTS -------- HEIGHT: 180.3 cm WEIGHT: 62.1 kg BP: 111/92 RVIDd: 2.5 cm (< 3.3) IVSd: 1.0 cm (0.6 - 1.1) LVIDd: 3.9 cm (3.9 - 5.3) LVPWd: 1.1 cm (0.6 - 1.1) IVSs: 1.3 cm LVIDs: 2.6 cm LVPWs: 1.6 cm LA Diam: 2.8 cm (2.7 - 3.8) Ao Diam: 3.2 cm (2.0 - 3.7) AV Cusp: 1.9 cm (1.5 - 2.6) MV EXCURSION: 19.132 mm (> 18.000) MV EF SLOPE: 222 mm/s (70 - 150) EPSS: 0.3 cm MV E Jim: 0.59 m/s MV DecT: 149 ms MV A Jim: 0.68 m/s MV E/A Ratio: 0.87 FINDINGS -------- Sinus rhythm. This was a technically adequate study. The left ventricular size is normal. Left ventricular wall thickness is normal. Overall left vent ricular systolic function is normal with, an EF between 55 - 60 %. The right ventricle is normal in size. The left atrium is normal in size. The right atrium is normal in size. Interatrial and interventricular septum intact. The aortic valve is trileaflet, and appears structurally normal. No aortic stenosis or regurgitation. The mitral valve is normal. The tricuspid valve appears structurally normal. Unable to estimate RVSP due to inadequate TR jet s pectral doppler profile. The pulmonic valve was not well visualized. The aortic root size is normal. IVC Not well visulized. There is no pericardial effusion. CONCLUSIONS -------- 1. The left ventricular size is normal. 2. Left ventricular wall thickness is normal. 3. Overall left ventricular systolic function is normal with, an EF between 55 - 60 %. 4. The aortic valve is trileaflet, and appears structurally normal. No aortic stenosis or regurgitati on. 5. There is no pericardial effusion. DREDGE PIPE OPERATOR: Kelley Rosario RD
[2021-03-04 14:35] LABS: Phosphorus 4.1 mg/dL (2.5-4.5)
[2021-03-04] MEDS: THIAMINE 200 MG in SODIUM CHLORIDE 0.9% 100 ML IVPB SCH (15:19)
[2021-03-04] MEDS ORDERED: Potassium Replacement Protocol 1 EACH MISC MISCELLANE PRN (17:29)
[2021-03-04] MEDS: POTASSIUM CHLORIDE ER 20 MEQ TAB.ER PO SCH (17:44)
[2021-03-04 17:45] LABS: ABG Base Excess 10.4 mmol/L; ABG HCO3 34 mmol/L (21-25); ABG Oxygen Saturation 97.9 % (94-97); ABG PCO2 44 mmHg (35-45); ABG PO2 90 mmHg (83-108); ABG TCO2 35 mmol/L (19-24); Allen Test Performed? Yes
--- NOTE | 2021-03-04 17:49 | CT ---
EXAMINATION TYPE: CT brain wo con DATE OF EXAM: 03/04/2021 COMPARISON: None HISTORY: 913 CT DLP: AMS mGycm Automated exposure control for dose reduction was used. Images obtained of the brain without contrast. Ventricles have normal size. There is no mass effect nor midline shift. There is no sign of intracran ial hemorrhage. There is mucus retention cyst right maxillary sinus. Calvarium is intact. Skull base is intact. There is some mild cerebral atrophy. IMPRESSION: Mild atrophy. No acute intracranial abnormality.
--- NOTE | 2021-03-04 18:07 | CT ---
EXAMINATION TYPE: CT abdomen pelvis w con DATE OF EXAM: 03/04/2021 COMPARISON: None HISTORY: Abd pain acute leukocytosis. CT DLP: 1173.4 mGycm Automated exposure control for dose reduction was used. CONTRAST: Performed with IV Contrast, patient injected with 100 mL of Isovue 300. Lung bases are clear. There is no pleural effusion. Heart size is normal. There is no pericardial eff usion. There is diffuse fatty infiltration of the liver. Liver is enlarged and measures 25 cm. Gallbladder m easures 4.4 cm. The bile ducts are not dilated. Spleen is intact. Stomach is intact. There is no evid ence of pancreatic mass. There is no adrenal mass. Kidneys show satisfactory contrast opacification. There is no hydronephrosi s. There is 3 mm calculus interpolar left kidney. The ureters are not dilated. There is no retroperit jones adenopathy. Bladder distends smoothly. There is retained fecal material in the rectum that roque ures 8 cm . There is some presacral edema. There is no evidence of free air. There is no evidence of a bowel ob struction. Small bowel and large bowel are not dilated. There is some mild lipomatosis of the right c olon. The lumbar vertebra appear intact. There is no compression fracture. Bony pelvis is intact. The hip j oints are intact. IMPRESSION: Fatty infiltration of the liver. Hepatomegaly. No dilated ducts. Distended gallbladder could relate t o gallbladder dysfunction. Rectal fecal impaction. Mild presacral edema.
[2021-03-04] MEDS: NICOTINE 21MG/24HR PATCH TRANSDERM SCH (23:12)
[2021-03-05] MEDS: LORazepam 2 MG/ML INJ IV PRN ×2 (01:02→22:41)
[2021-03-05] MEDS: SODIUM CHLORIDE 0.9% 1,000 ML IV SCH (05:00)
[2021-03-05 05:30] LABS: Urine Alcohol Negative (Negative); Urine Barbiturate Negative (Negative); Urine Cocaine Negative (Negative); Urine Methadone Negative (Negative); Urine Opiates Negative (Negative); Urine Phencyclidine Negative (Negative)
--- NOTE | 2021-03-05 07:39 | P.PN ---
Subjective Progress Note Date: 03/05/21 Principal diagnosis: Abnormal troponin The patient is a 45-year-old gentleman with a past medical history significant for excessive alcohol use who we consulted to see in the emergency department yesterday because of abnormal cardiac enzymes. Obviously the patient has been drinking excessively but for the last few days he has been going through alcohol withdrawal/DT. He was seen yesterday when he was tachycardic and also he was anemic. He was confused and lethargic in the emergency department. We advise medical treatment for the mildly abnormal troponin and we ordered an echocardiogram. He was seen this morning. He continues to be lethargic. No indication that he was experiencing any chest pain or chest discomfort. His heart rate is a slightly better. The pressure is a stable. He is on atenolol. We felt that the mildly abnormal troponin is related to tachycardia as well as anemia. He underwent an echocardiogram which revealed normal left ventricular systolic function without significant valvular abnormalities and without any evidence of foreign motion abnormalities. Objective - Vital Signs Vital signs: Vital Signs Temp 97.8 F 03/05/21 03:05 Pulse 98 03/05/21 03:05 Resp 18 03/05/21 03:05 BP 107/73 03/05/21 03:05 Pulse Ox 94 L 03/05/21 03:05 Intake & Output 03/04/21 03/05/21 03/05/21 18:59 06:59 18:59 Intake Total 370 540 Output Total 900 1900 Balance -530 -1360 Intake: Intake, IV Titration 130 Amount Sodium Chloride 0.9% 1, 130 000 ml @ 130 mls/hr IV . Q7H42M ON LICENSE OF [facility] Rx#:[id number] Oral 240 540 Output: Urine 900 1900 Straight 900 Uretheral (Chu) 1000 Other: Voiding Method Indwelling Catheter # Bowel Movements 1 - Constitutional General appearance: Present: no acute distress - Respiratory Respiratory: bilateral: diminished - Cardiovascular Rhythm: regular Heart sounds: normal: S1, S2 - Labs CBC & Chem 7: 03/04/21 13:30 03/04/21 07:37 Labs: Abnormal Lab Results - Last 24 Hours (Table) 03/04/21 03/04/21 03/04/21 Range/Units 07:37 07:37 13:30 WBC 20.3 H (3.8-10.6) k/uL RBC 1.82 L (4.30-5.90) m/uL Hgb 7.4 L D (13.0-17.5) gm/dL Hct 21.9 L (39.0-53.0) % MCV 120.4 H (80.0-100.0) fL MCH 40.6 H (25.0-35.0) pg RDW 17.5 H (11.5-15.5) % Macrocytosis Marked A ABG pH (7.35-7.45) ABG HCO3 (21-25) mmol/L ABG Total CO2 (19-24) mmol/L ABG O2 Saturation (94-97) % Potassium 3.1 L (3.5-5.1) mmol/L Carbon Dioxide 38 H (22-30) mmol/L BUN 32 H (9-20) mg/dL Calcium 8.0 L (8.4-10.2) mg/dL Total Bilirubin 1.7 H (0.2-1.3) mg/dL AST 204 H (17-59) U/L ALT 174 H (4-49) U/L Alkaline Phosphatase 131 H (38-126) U/L Creatine Kinase 1199 H* (55-170) U/L Total Protein 5.0 L (6.3-8.2) g/dL Albumin 2.5 L (3.5-5.0) g/dL Procalcitonin (0.02-0.09) ng/mL 03/04/21 03/04/21 03/04/21 Range/Units 13:30 13:30 17:39 WBC 19.1 H (3.8-10.6) k/uL RBC 1.82 L (4.30-5.90) m/uL Hgb 7.4 L (13.0-17.5) gm/dL Hct 22.2 L (39.0-53.0) % MCV 121.9 H (80.0-100.0) fL MCH 41.0 H (25.0-35.0) pg RDW 17.3 H (11.5-15.5) % Macrocytosis Marked A ABG pH 7.50 H (7.35-7.45) ABG HCO3 34 H (21-25) mmol/L ABG Total CO2 35 H (19-24) mmol/L ABG O2 Saturation 97.9 H (94-97) % Potassium (3.5-5.1) mmol/L Carbon Dioxide (22-30) mmol/L BUN (9-20) mg/dL Calcium (8.4-10.2) mg/dL Total Bilirubin (0.2-1.3) mg/dL AST (17-59) U/L ALT (4-49) U/L Alkaline Phosphatase (38-126) U/L Creatine Kinase (55-170) U/L Total Protein (6.3-8.2) g/dL Albumin (3.5-5.0) g/dL Procalcitonin 0.37 H (0.02-0.09) ng/mL Assessment and Plan Assessment: Assessment # alcohol withdrawal symptoms #2 sinus tachycardia secondary to the above #3 evidence of myocardial injury without any evidence of ischemia clinically or by EKG or by echo #4 anemia #5 abnormal liver function tests Plan #1 the echo was reviewed and showed no evidence of formal motion abnormalities #2 continue the current medical regimen with increasing the dose of atenolol. #3 follow-up with the patient on when necessary case
[2021-03-05 07:45] LABS: ALT 162 U/L (4-49); AST 179 U/L (17-59); African American GFR (CKD) >90 (>60 ml/min/1.73 sqM); Albumin 2.2 g/dL (3.5-5.0); Alkaline Phosphatase 126 U/L (38-126); Anion Gap 5 mmol/L; Blood Urea Nitrogen 18 mg/dL (9-20); Calcium 7.7 mg/dL (8.4-10.2); Carbon Dioxide 28 mmol/L (22-30); Chloride 106 mmol/L (98-107); Creatine Kinase 971 U/L (55-170); Glucose 76 mg/dL (74-99); Magnesium 1.6 mg/dL (1.6-2.3); Non-African American GFR(CKD) >90 (>60 ml/min/1.73 sqM); Potassium 3.1 mmol/L (3.5-5.1); Sodium 139 mmol/L (137-145); Total Bilirubin 1.5 mg/dL (0.2-1.3); Total Protein 4.5 g/dL (6.3-8.2)
[2021-03-05 07:54] LABS: Anisocytosis Slight; HCT 22.1 % (39.0-53.0); HGB 7.1 gm/dL (13.0-17.5); Hypochromasia Moderate; MCH 40.2 pg (25.0-35.0); MCHC 32.1 g/dL (31.0-37.0); MCV 125.3 fL (80.0-100.0); Macrocytosis Marked; Mean Platelet Volume 9.1; Platelet Count 397 k/uL (150-450); RBC 1.77 m/uL (4.30-5.90); RDW 17.7 % (11.5-15.5); WBC 15.2 k/uL (3.8-10.6)
[2021-03-05] MEDS: PANTOPRAZOLE 40 MG/10 ML VIAL IVP SCH ×2 (08:16→19:40)
[2021-03-05] MEDS: NICOTINE 21MG/24HR PATCH TRANSDERM SCH (08:16)
[2021-03-05] MEDS ORDERED: NICOTINE 21MG/24HR PATCH TRANSDERM SCH (09:00)
[2021-03-05] MEDS ORDERED: ASPIRIN 81 MG PO SCH (09:00)
--- NOTE | 2021-03-05 09:03 | P.PN ---
Subjective Principal diagnosis: Alcohol withdrawals 45-year-old male history of severe alcoholism came to emergency department with nausea and vomiting, alcohol withdrawals. Patient was seeking treatment of his withdrawal symptoms. Drinks half a pint of water daily. Last drink was 2 days prior to admission. Found to be very dehydrated, electrolytes repleted, diffuse musculoskeletal pain with rhabdomyolysis, worsening anemia, leukocytosis. Mental status improving. He received 1 mg of Ativan overnight. No nausea or vomiting no abdominal pain. No headaches no vision changes. White blood cell count trending down. Objective - Vital Signs Vital signs: Vital Signs Temp 97.8 F 03/05/21 03:05 Pulse 98 03/05/21 03:05 Resp 18 03/05/21 03:05 BP 107/73 03/05/21 03:05 Pulse Ox 94 L 03/05/21 03:05 Intake & Output 03/04/21 03/05/21 03/05/21 18:59 06:59 18:59 Intake Total 370 540 Output Total 900 1900 Balance -530 -1360 Intake: Intake, IV Titration 130 Amount Sodium Chloride 0.9% 1, 130 000 ml @ 130 mls/hr IV . Q7H42M [facility] Rx#:[id number] Oral 240 540 Output: Urine 900 1900 Straight 900 Uretheral (Chu) 1000 Other: Voiding Method Indwelling Catheter # Bowel Movements 1 - Exam Groggy but improving, he is following commands he does not appear to be in any distress Head and neck: Sclerae are anicteric, no facial asymmetry oropharyngeal mucosa seems moist with poor dentition on neck masses or JVD Lungs nonlabored breathing clear to auscultation Cardiovascular tachycardic regular in the range of 100 S1-S2 Abdomen: Bowel sounds are present throughout, no tenderness to palpation today no epigastric or right upper quadrant tenderness no flank tenderness, bowel sounds are present throughout, abdomen is soft Extremities: No peripheral edema no cyanosis warm well perfused Neurological: Lethargic but improved, is moving all 4 extremities pupils are round and reactive to light eyes are in midline no facial asymmetry no ankle clonus was DTRs patellar 1+ bilateral , no asterixis - Labs CBC & Chem 7: 03/05/21 06:28 03/05/21 06:28 Labs: Abnormal Lab Results - Last 24 Hours (Table) 03/04/21 03/04/21 03/04/21 Range/Units 13:30 13:30 13:30 WBC 19.1 H (3.8-10.6) k/uL RBC 1.82 L (4.30-5.90) m/uL Hgb 7.4 L (13.0-17.5) gm/dL Hct 22.2 L (39.0-53.0) % MCV 121.9 H (80.0-100.0) fL MCH 41.0 H (25.0-35.0) pg RDW 17.3 H (11.5-15.5) % Macrocytosis Marked A ABG pH (7.35-7.45) ABG HCO3 (21-25) mmol/L ABG Total CO2 (19-24) mmol/L ABG O2 Saturation (94-97) % Potassium (3.5-5.1) mmol/L Creatinine (0.66-1.25) mg/dL Calcium (8.4-10.2) mg/dL Total Bilirubin (0.2-1.3) mg/dL AST (17-59) U/L ALT (4-49) U/L Creatine Kinase 1199 H* (55-170) U/L Total Protein (6.3-8.2) g/dL Albumin (3.5-5.0) g/dL Procalcitonin 0.37 H (0.02-0.09) ng/mL 03/04/21 03/05/21 03/05/21 Range/Units 17:39 06:28 06:28 WBC 15.2 H (3.8-10.6) k/uL RBC 1.77 L (4.30-5.90) m/uL Hgb 7.1 L (13.0-17.5) gm/dL Hct 22.1 L (39.0-53.0) % MCV 125.3 H (80.0-100.0) fL MCH 40.2 H (25.0-35.0) pg RDW 17.7 H (11.5-15.5) % Macrocytosis Marked A ABG pH 7.50 H (7.35-7.45) ABG HCO3 34 H (21-25) mmol/L ABG Total CO2 35 H (19-24) mmol/L ABG O2 Saturation 97.9 H (94-97) % Potassium 3.1 L (3.5-5.1) mmol/L Creatinine 0.61 L (0.66-1.25) mg/dL Calcium 7.7 L (8.4-10.2) mg/dL Total Bilirubin 1.5 H (0.2-1.3) mg/dL AST 179 H (17-59) U/L ALT 162 H (4-49) U/L Creatine Kinase 971 H (55-170) U/L Total Protein 4.5 L (6.3-8.2) g/dL Albumin 2.2 L (3.5-5.0) g/dL Procalcitonin (0.02-0.09) ng/mL Assessment and Plan Plan: #Acute alcoholic withdrawal [facility] protocol IV fluids Thiamine Multivitamin #Acute toxic metabolic encephalopathy CT of the head : No acute abnormalities Neck is supple no rigidity Suspect encephalopathy due to combination of alcohol withdrawals dehydration seizure metabolic derangements Ativan and cannot rule out postictal state from seizures given his significantly elevated CPK His respiratory status is stable, ammonia level was normal, ABG without CO2 retention Continue supportive care treatment for delirium withdrawals #SIRS Rule out sepsis Blood cultures no growth to date Urine cultures Started on ceftriaxone 03/04/21 Leukocytosis trending down Reactive versus occult infectious process like aspiration pneumonia or gallbladder Infectious disease following general surgery consult Ultrasound and CT of the abdomen consistent with dilated gallbladder with sludge no signs of cholecystitis or dilation of CBD #Rhabdomyolysis Etiology not clear Rule out seizure rule out toxic effects of alcohol or drugs CPK trending down Continue IV fluid Check urine drug screen #Elevated troponin No report of chest pain or shortness of breath EKG without acute changes Cardiology consultation Echo showing no wall motion abnormalities this could be related to his rhabdomyolysis #Elevated liver enzymes Alcoholic liver disease Imaging consistent with hepatomegaly, fatty liver disease Trend liver enzymes: Trending down Viral hepatitis studies #Anemia Acute on chronic Elevated MCV Continue multivitamin Rule out GI bleed Continue PPI IV Serial hemoglobin Stool for occult blood General surgical consultation /GI not available #Acute pancreatitis Continue IV fluids CT of the abdomen and ultrasound of abdomen obtained #Depression Evaluated by psychiatrist In the past
[2021-03-05] MEDS: atenoloL 50 MG TAB PO SCH (09:13)
[2021-03-05] MEDS: THIAMINE 200 MG in SODIUM CHLORIDE 0.9% 100 ML IVPB SCH (09:13)
[2021-03-05] MEDS ORDERED: MAGNESIUM CITRATE 296 ML BOTTLE PO ONE (09:44)
--- NOTE | 2021-03-05 10:10 | P.CONS ---
History of Present Illness - Reason for Consult Consult date: 03/04/21 leukocytosis Requesting physician: Kan Stapleton - Chief Complaint weakness and decreased oral intake x few days - History of Present Illness History of present illness : Patient is 45-year male presenting to the hospital yesterday afternoon with a patient complaining of feeling nauseated and has not been eating much was complaining of shakes and joint pains this patient did have history of heavy drinking however stopped drinking about 2 days before presentation to the hospital patient was not complaining of any chest pain or difficulty breathing or any fever or chills and no abdominal pain was complaining of findings of a difficult to walk as he was very weak no history of any recent fall on presentation to the hospital patient was afebrile and no fever has been recorded subsequently patient did have a white count of 15.6 which is up to 20.3 today that has prompted this infectious disease consultation creatinine was normal liver enzymes are elevated CK was elevated as well as troponin urine is negative urine toxin was negative lisa PCR was negative patient did have a chest x-ray no acute process abdominal ultrasound hepatomegaly correlate for hepatic steatosis hepatocellular disease sludge in the gallbladder patient also have a CT of abdominal pelvis right infiltration of the liver hepatomegaly no dilated ducts distended gallbladder could relate to gallbladder dysfunction patient is currently being treated with Rocephin 1 g daily infectious he was consulted for further management, patient himself is not a very good historian so most information has been obtained from review the chart Review of system: Positive point has been mentioned in HPI complete review could not be obtained because of underlying mental status Past medical history : Reviewed, documented below Past surgical history : Reviewed, documented below Social history: Reviewed, documented below Medications: Reviewed, as documented below EXAMINATION: Vital sigans= Reviewed and documented below GENERAL DESCRIPTION: Middle-aged male lying in bed, no distress. No tachypnea or accessory muscle of respiration use. HEENT: Shows Pallor , no scleral icterus. Oral mucous membrane is dry. NECK: Trachea central, no thyromegaly. LUNGS: Unlabored breathing. Clear to auscultation anteriorly. No wheeze or crackle. HEART: S1, S2, regular rate and rhythm. ABDOMEN: Soft, mild distention but no tenderness , guarding or rigidity EXTREMITIES: No edema of feet. SKIN: No rash, no masses palpable. NEUROLOGICAL: The patient is awake, alert, oriented x2, mood and affect normal. LABS AND RADIOLOGY: Reviewed results see below Assessment : Patient with elevated white count in this patient who did have a heavy history of drinking presented to hospital with weakness decreased oral intake in this patient initial work-up chest x-ray and urine was negative ultrasound was suspicious for a sludge in the CT suspicious for gallbladder dysfunction likely the source of his elevated white count and no need to cover for the enteric gram-negative pathogen Plan: 1-patient would benefit from general surgery evaluation 2-switch Rocephin to Unasyn 3 g every 6 hours 3-gentle IV fluid We will follow on clinical condition and cultures to further adjust medication if needed Thank you for this consultation we will follow the patient along with you Past Medical History Past Medical History: No Reported History Additional Past Medical History / Comment(s): depression, left sided weakness and numbness on left side History of Any Multi-Drug Resistant Organisms: None Reported Past Surgical History: Orthopedic Surgery Additional Past Surgical History / Comment(s): finger surgery Past Anesthesia/Blood Transfusion Reactions: No Reported Reaction Past Psychological History: Depression Smoking Status: Current every day smoker Past Alcohol Use History: Abuse, Daily Past Drug Use History: None Reported - Past Family History Father Brother(s) Family Medical History: Cancer Mother Family Medical History: Cancer Medications and Allergies Home Medications Medication Instructions Recorded Confirmed Type Acetaminophen Tab [Tylenol Tab] 1,000 mg PO Q6HR PRN 03/03/21 03/03/21 History Ibuprofen [Motrin Ib] 400 mg PO Q8H PRN 03/03/21 03/03/21 History Multivitamins, Thera [Multivitamin 1 tab PO DAILY 03/03/21 03/03/21 History (formulary)] Vitamin B Complex 1 cap PO DAILY 03/03/21 03/03/21 History Allergies Allergy/AdvReac Type Severity Reaction Status Date / Time No Known Allergies Allergy Verified 03/03/21 12:42 Physical Exam Vitals: Vital Signs Temp Pulse Pulse Resp BP BP Pulse Ox 03/04/21 15:26 97.7 F 86 15 101/74 99 03/04/21 13:46 85 03/04/21 11:37 112 H 18 106/80 94 L 03/04/21 08:00 112 H 16 113/75 94 L 03/04/21 04:00 98.1 F 98 16 111/92 98 03/04/21 02:00 20 03/04/21 00:00 98.2 F 96 20 107/74 98 03/03/21 21:44 98 F 115 H 16 128/77 95 03/03/21 20:00 16 03/03/21 18:37 110 H 18 115/86 95 Intake and Output 03/04/21 03/04/21 03/04/21 06:59 14:59 22:59 Intake Total 370 Output Total 800 Balance -800 370 Intake: Intake, IV Titration 130 Amount Sodium Chloride 0.9% 1, 130 000 ml @ 130 mls/hr IV . Q7H42M [facility] Rx#:[id number] Oral 240 Output: Urine 0 Post Void Residual 800 Results CBC & Chem 7: 03/05/21 06:28 03/05/21 06:28 Labs: Abnormal Lab Results - Last 24 Hours (Table) 03/03/21 03/03/21 03/04/21 Range/Units 16:06 20:23 04:28 WBC (3.8-10.6) k/uL RBC (4.30-5.90) m/uL Hgb (13.0-17.5) gm/dL Hct (39.0-53.0) % MCV (80.0-100.0) fL MCH (25.0-35.0) pg RDW (11.5-15.5) % Macrocytosis Potassium (3.5-5.1) mmol/L Carbon Dioxide (22-30) mmol/L BUN (9-20) mg/dL Calcium (8.4-10.2) mg/dL Total Bilirubin (0.2-1.3) mg/dL AST (17-59) U/L ALT (4-49) U/L Alkaline Phosphatase (38-126) U/L Creatine Kinase (55-170) U/L Troponin I 0.098 H* 0.098 H* (0.000-0.034) ng/mL Total Protein (6.3-8.2) g/dL Albumin (3.5-5.0) g/dL Urine Protein 1+ H (Negative) Urine Blood Large H (Negative) Urine Bilirubin 1+ H (Negative) Urine Bacteria Rare H (None) /hpf Hyaline Casts 8 H (0-2) /lpf Urine Mucus Rare H (None) /hpf 03/04/21 03/04/21 03/04/21 Range/Units 07:37 07:37 13:30 WBC 20.3 H (3.8-10.6) k/uL RBC 1.82 L (4.30-5.90) m/uL Hgb 7.4 L D (13.0-17.5) gm/dL Hct 21.9 L (39.0-53.0) % MCV 120.4 H (80.0-100.0) fL MCH 40.6 H (25.0-35.0) pg RDW 17.5 H (11.5-15.5) % Macrocytosis Marked A Potassium 3.1 L (3.5-5.1) mmol/L Carbon Dioxide 38 H (22-30) mmol/L BUN 32 H (9-20) mg/dL Calcium 8.0 L (8.4-10.2) mg/dL Total Bilirubin 1.7 H (0.2-1.3) mg/dL AST 204 H (17-59) U/L ALT 174 H (4-49) U/L Alkaline Phosphatase 131 H (38-126) U/L Creatine Kinase 1199 H* (55-170) U/L Troponin I (0.000-0.034) ng/mL Total Protein 5.0 L (6.3-8.2) g/dL Albumin 2.5 L (3.5-5.0) g/dL Urine Protein (Negative) Urine Blood (Negative) Urine Bilirubin (Negative) Urine Bacteria (None) /hpf Hyaline Casts (0-2) /lpf Urine Mucus (None) /hpf 03/04/21 Range/Units 13:30 WBC 19.1 H (3.8-10.6) k/uL RBC 1.82 L (4.30-5.90) m/uL Hgb 7.4 L (13.0-17.5) gm/dL Hct 22.2 L (39.0-53.0) % MCV 121.9 H (80.0-100.0) fL MCH 41.0 H (25.0-35.0) pg RDW 17.3 H (11.5-15.5) % Macrocytosis Marked A Potassium (3.5-5.1) mmol/L Carbon Dioxide (22-30) mmol/L BUN (9-20) mg/dL Calcium (8.4-10.2) mg/dL Total Bilirubin (0.2-1.3) mg/dL AST (17-59) U/L ALT (4-49) U/L Alkaline Phosphatase (38-126) U/L Creatine Kinase (55-170) U/L Troponin I (0.000-0.034) ng/mL Total Protein (6.3-8.2) g/dL Albumin (3.5-5.0) g/dL Urine Protein (Negative) Urine Blood (Negative) Urine Bilirubin (Negative) Urine Bacteria (None) /hpf Hyaline Casts (0-2) /lpf Urine Mucus (None) /hpf
--- NOTE | 2021-03-05 10:23 | P.GSCN ---
History of Present Illness Consult date: 03/05/21 Reason for Consult: GI bleed History of present illness: 45-year-old male admitted to the hospital for alcohol withdrawals. Patient with history of significant alcohol abuse. Hemoglobin found to be low. Patient says he has not seen any black stools or bloody stools however the patient is not a good historian at this point and remains somewhat confused. He had a CAT scan performed showing significant liver disease, no bladder distention, and some degree of constipation with possible fecal impaction. Patient does admit to some mild abdominal pain. Per nursing staff he has not had a bowel movement. Chu catheter was placed last night. Review of Systems ROS unobtainable: due to mental status Past Medical History Past Medical History: No Reported History Additional Past Medical History / Comment(s): depression, left sided weakness and numbness on left side History of Any Multi-Drug Resistant Organisms: None Reported Past Surgical History: Orthopedic Surgery Additional Past Surgical History / Comment(s): finger surgery Past Anesthesia/Blood Transfusion Reactions: No Reported Reaction Past Psychological History: Depression Smoking Status: Current every day smoker Past Alcohol Use History: Abuse, Daily Past Drug Use History: None Reported - Past Family History Father Brother(s) Family Medical History: Cancer Mother Family Medical History: Cancer Medications and Allergies Home Medications Medication Instructions Recorded Confirmed Type Acetaminophen Tab [Tylenol Tab] 1,000 mg PO Q6HR PRN 03/03/21 03/03/21 History Ibuprofen [Motrin Ib] 400 mg PO Q8H PRN 03/03/21 03/03/21 History Multivitamins, Thera [Multivitamin 1 tab PO DAILY 03/03/21 03/03/21 History (formulary)] Vitamin B Complex 1 cap PO DAILY 03/03/21 03/03/21 History Allergies Allergy/AdvReac Type Severity Reaction Status Date / Time No Known Allergies Allergy Verified 03/03/21 12:42 Surgical - Exam Vital Signs Temp Pulse Resp BP Pulse Ox 98.1 F 112 H 18 124/85 98 03/03/21 12:16 03/03/21 12:16 03/03/21 12:16 03/03/21 12:16 03/03/21 12:16 Physical exam: General: Well-developed, well-nourished HEENT: Normocephalic, sclerae icteric Abdomen: Mild distention, minimal tenderness Extremities: Mild edema Neuro: Alert and confused Results - Labs 03/05/21 06:28 03/05/21 06:28 Abnormal Lab Results - Last 24 Hours (Table) 03/04/21 03/04/21 03/04/21 Range/Units 13:30 13:30 13:30 WBC 19.1 H (3.8-10.6) k/uL RBC 1.82 L (4.30-5.90) m/uL Hgb 7.4 L (13.0-17.5) gm/dL Hct 22.2 L (39.0-53.0) % MCV 121.9 H (80.0-100.0) fL MCH 41.0 H (25.0-35.0) pg RDW 17.3 H (11.5-15.5) % Macrocytosis Marked A ABG pH (7.35-7.45) ABG HCO3 (21-25) mmol/L ABG Total CO2 (19-24) mmol/L ABG O2 Saturation (94-97) % Potassium (3.5-5.1) mmol/L Creatinine (0.66-1.25) mg/dL Calcium (8.4-10.2) mg/dL Total Bilirubin (0.2-1.3) mg/dL AST (17-59) U/L ALT (4-49) U/L Creatine Kinase 1199 H* (55-170) U/L Total Protein (6.3-8.2) g/dL Albumin (3.5-5.0) g/dL Procalcitonin 0.37 H (0.02-0.09) ng/mL 03/04/21 03/05/21 03/05/21 Range/Units 17:39 06:28 06:28 WBC 15.2 H (3.8-10.6) k/uL RBC 1.77 L (4.30-5.90) m/uL Hgb 7.1 L (13.0-17.5) gm/dL Hct 22.1 L (39.0-53.0) % MCV 125.3 H (80.0-100.0) fL MCH 40.2 H (25.0-35.0) pg RDW 17.7 H (11.5-15.5) % Macrocytosis Marked A ABG pH 7.50 H (7.35-7.45) ABG HCO3 34 H (21-25) mmol/L ABG Total CO2 35 H (19-24) mmol/L ABG O2 Saturation 97.9 H (94-97) % Potassium 3.1 L (3.5-5.1) mmol/L Creatinine 0.61 L (0.66-1.25) mg/dL Calcium 7.7 L (8.4-10.2) mg/dL Total Bilirubin 1.5 H (0.2-1.3) mg/dL AST 179 H (17-59) U/L ALT 162 H (4-49) U/L Creatine Kinase 971 H (55-170) U/L Total Protein 4.5 L (6.3-8.2) g/dL Albumin 2.2 L (3.5-5.0) g/dL Procalcitonin (0.02-0.09) ng/mL Microbiology - Last 24 Hours (Table) 03/04/21 18:30 Urine Culture - Preliminary Urine,Catheterized Diabetes panel 03/05/21 Range/Units 06:28 Sodium 139 (137-145) mmol/L Potassium 3.1 L (3.5-5.1) mmol/L Chloride 106 (98-107) mmol/L Carbon Dioxide 28 (22-30) mmol/L BUN 18 (9-20) mg/dL Creatinine 0.61 L (0.66-1.25) mg/dL Glucose 76 (74-99) mg/dL Calcium 7.7 L (8.4-10.2) mg/dL AST 179 H (17-59) U/L ALT 162 H (4-49) U/L Alkaline Phosphatase 126 (38-126) U/L Total Protein 4.5 L (6.3-8.2) g/dL Albumin 2.2 L (3.5-5.0) g/dL Calcium panel 03/04/21 03/05/21 Range/Units 13:30 06:28 Calcium 7.7 L (8.4-10.2) mg/dL Phosphorus 4.1 (2.5-4.5) mg/dL Albumin 2.2 L (3.5-5.0) g/dL Pituitary panel 03/05/21 Range/Units 06:28 Sodium 139 (137-145) mmol/L Potassium 3.1 L (3.5-5.1) mmol/L Chloride 106 (98-107) mmol/L Carbon Dioxide 28 (22-30) mmol/L BUN 18 (9-20) mg/dL Creatinine 0.61 L (0.66-1.25) mg/dL Glucose 76 (74-99) mg/dL Calcium 7.7 L (8.4-10.2) mg/dL Adrenal panel 03/05/21 Range/Units 06:28 Sodium 139 (137-145) mmol/L Potassium 3.1 L (3.5-5.1) mmol/L Chloride 106 (98-107) mmol/L Carbon Dioxide 28 (22-30) mmol/L BUN 18 (9-20) mg/dL Creatinine 0.61 L (0.66-1.25) mg/dL Glucose 76 (74-99) mg/dL Calcium 7.7 L (8.4-10.2) mg/dL Total Bilirubin 1.5 H (0.2-1.3) mg/dL AST 179 H (17-59) U/L ALT 162 H (4-49) U/L Alkaline Phosphatase 126 (38-126) U/L Total Protein 4.5 L (6.3-8.2) g/dL Albumin 2.2 L (3.5-5.0) g/dL Assessment and Plan (1) Anemia Narrative/Plan: 45-year-old male with significant anemia. Patient undergoing alcohol withdrawals currently. No active bleeding presently. Patient unable to provide history of previous endoscopic workup. Patient's CAT scan was reviewed and there certainly is some significant stool in the rectal vault. We'll proceed with magnesium citrate at this time. We'll reassess tomorrow. Current Visit: Yes Status: Acute Code(s): D64.9 - ANEMIA, UNSPECIFIED SNOMED Code(s): 680486492
[2021-03-05] MEDS ORDERED: POTASSIUM CHLORIDE ER 20 MEQ TAB.ER PO STA (10:45)
[2021-03-05] MEDS ORDERED: SODIUM CHLORIDE 0.9% 1,000 ML with POTASSIUM CHLORIDE 20 MEQ IV SCH ×2 (11:00)
[2021-03-05] MEDS: 0.9% NACL WITH KCL 20 MEQ/L 1,000 ML IV SCH ×2 (12:38→19:40)
[2021-03-05] MEDS: AMPICILLIN-SULBACTAM 3 GM in SODIUM CHLORIDE 0.9% 100 ML IVPB SCH ×3 (12:46→23:42)
--- NOTE | 2021-03-05 17:36 | P.CNNES ---
History of Present Illness Consult date: 03/05/21 History of Present Illness: The patient is a 45-year-old male who is seen in neurologic consultation on March 05, 2021, via telemedicine. The patient's nurse is present at the bedside at the time of the evaluation. History is obtained from the nurse and from the chart. The patient is unable to provide any history. Apparently there has been concern because the patient seems to be less arousable. Patient is currently going through alcohol withdrawal. He is about day for of his withdrawal process. There is question of possible, unwitnessed seizure and subsequent postictal state. It is not known whether the patient has gone through alcohol withdrawal before and if he as whether he has had a seizure at that time. In reviewing the patient's chart, he was admitted to the hospital in September 2020 for similar problems. He went partially through detox and left the hospital AMA. I see no history of previous EEGs. Past Medical History Past Medical History: No Reported History Additional Past Medical History / Comment(s): depression, left sided weakness and numbness on left side History of Any Multi-Drug Resistant Organisms: None Reported Past Surgical History: Orthopedic Surgery Additional Past Surgical History / Comment(s): finger surgery Past Anesthesia/Blood Transfusion Reactions: No Reported Reaction Past Psychological History: Depression Smoking Status: Current every day smoker Past Alcohol Use History: Abuse, Daily Past Drug Use History: None Reported - Past Family History Father Brother(s) Family Medical History: Cancer Mother Family Medical History: Cancer Medications and Allergies Home Medications Medication Instructions Recorded Confirmed Type Acetaminophen Tab [Tylenol Tab] 1,000 mg PO Q6HR PRN 03/03/21 03/03/21 History Ibuprofen [Motrin Ib] 400 mg PO Q8H PRN 03/03/21 03/03/21 History Multivitamins, Thera [Multivitamin 1 tab PO DAILY 03/03/21 03/03/21 History (formulary)] Vitamin B Complex 1 cap PO DAILY 03/03/21 03/03/21 History Allergies Allergy/AdvReac Type Severity Reaction Status Date / Time No Known Allergies Allergy Verified 03/03/21 12:42 Physical Examination - Vital Signs Vital Signs: Vital Signs Temp Pulse Resp BP Pulse Ox 03/05/21 12:05 98.3 F 91 18 101/65 93 L 03/05/21 08:15 98.2 F 95 18 106/74 95 03/05/21 03:05 97.8 F 98 18 107/73 94 L 03/05/21 01:49 91 03/04/21 23:55 98.5 F 91 20 110/70 95 03/04/21 20:00 87 03/04/21 19:30 98.3 F 87 18 107/71 96 03/04/21 15:26 97.7 F 86 15 101/74 99 Intake and Output 03/04/21 03/05/21 03/05/21 22:59 06:59 14:59 Intake Total 540 Output Total 900 1900 200 Balance -360 -1900 -200 Intake: Oral 540 Output: Urine 900 1900 200 Straight 900 200 Uretheral (Chu) 1000 Other: Voiding Method Indwelling Catheter Indwelling Catheter # Bowel Movements 1 3 Gen.: The patient is reclining in the bed. He is in no acute distress. He is difficult to arouse. HEENT: Head is atraumatic, normocephalic. Fundus not visualized. There is no scleral icterus. Mucous membranes are moist. Neck: Supple Heart: Regular rate and rhythm Extremities: There is swelling of the bilateral ankles Neurological examination Mental status: The patient does open his eyes to verbal stimulation. He does not keep them open. He is able to tell me his name, date of , age, current year, location, current president. He tells me he is having joint pain and he feels weak all over. The patient follows intermittent commands. Cranial nerves: Pupils are equal at 6 mm and briskly reactive. Patient does not keep his eyes open long enough to participate with visual field testing or extraocular movement assessment. There is no obvious facial asymmetry. Hearing is grossly intact. Motor: The patient's extremities revealed decreased tone, left greater than right. Sensation:There is movement of all 4 extremities, and response to noxious stimulation, right greater than left Coordination: Not formally assessed however, the patient is observed to have tremors of his bilateral upper extremities. Deep tendon reflexes: 2+/4+ in the bilateral upper extremities. 1+/4+ at the knees. Plantar responses are flexor bilaterally. Gait: Not assessed Results - Laboratory Findings CBC and BMP: 03/05/21 06:28 03/05/21 06:28 Abnormal Lab Findings: Abnormal Labs 03/03/21 03/03/21 03/03/21 13:56 13:56 13:56 WBC 15.6 H RBC 2.20 L Hgb 8.9 L Hct 26.2 L MCV 118.9 H MCH 40.6 H RDW 16.8 H Neutrophils # (Manual) 11.80 H Monocytes # (Manual) 1.25 H Nucleated RBCs 73 H Macrocytosis Marked A APTT 21.6 L ABG pH ABG HCO3 ABG Total CO2 ABG O2 Saturation Sodium 133 L Potassium Chloride 89 L Carbon Dioxide 37 H BUN 46 H Creatinine Glucose 130 H Calcium Total Bilirubin 2.2 H AST 273 H ALT 205 H Alkaline Phosphatase 154 H Creatine Kinase Troponin I Total Protein 6.0 L Albumin 3.2 L Lipase 418 H Procalcitonin Urine Protein Urine Blood Urine Bilirubin Urine Bacteria Hyaline Casts Urine Mucus 03/03/21 03/03/21 03/03/21 13:56 16:06 20:23 WBC RBC Hgb Hct MCV MCH RDW Neutrophils # (Manual) Monocytes # (Manual) Nucleated RBCs Macrocytosis APTT ABG pH ABG HCO3 ABG Total CO2 ABG O2 Saturation Sodium Potassium Chloride Carbon Dioxide BUN Creatinine Glucose Calcium Total Bilirubin AST ALT Alkaline Phosphatase Creatine Kinase Troponin I 0.115 H* 0.098 H* 0.098 H* Total Protein Albumin Lipase Procalcitonin Urine Protein Urine Blood Urine Bilirubin Urine Bacteria Hyaline Casts Urine Mucus 03/04/21 03/04/21 03/04/21 04:28 07:37 07:37 WBC 20.3 H RBC 1.82 L Hgb 7.4 L D Hct 21.9 L MCV 120.4 H MCH 40.6 H RDW 17.5 H Neutrophils # (Manual) Monocytes # (Manual) Nucleated RBCs Macrocytosis Marked A APTT ABG pH ABG HCO3 ABG Total CO2 ABG O2 Saturation Sodium Potassium 3.1 L Chloride Carbon Dioxide 38 H BUN 32 H Creatinine Glucose Calcium 8.0 L Total Bilirubin 1.7 H AST 204 H ALT 174 H Alkaline Phosphatase 131 H Creatine Kinase Troponin I Total Protein 5.0 L Albumin 2.5 L Lipase Procalcitonin Urine Protein 1+ H Urine Blood Large H Urine Bilirubin 1+ H Urine Bacteria Rare H Hyaline Casts 8 H Urine Mucus Rare H 03/04/21 03/04/21 03/04/21 13:30 13:30 13:30 WBC 19.1 H RBC 1.82 L Hgb 7.4 L Hct 22.2 L MCV 121.9 H MCH 41.0 H RDW 17.3 H Neutrophils # (Manual) Monocytes # (Manual) Nucleated RBCs Macrocytosis Marked A APTT ABG pH ABG HCO3 ABG Total CO2 ABG O2 Saturation Sodium Potassium Chloride Carbon Dioxide BUN Creatinine Glucose Calcium Total Bilirubin AST ALT Alkaline Phosphatase Creatine Kinase 1199 H* Troponin I Total Protein Albumin Lipase Procalcitonin 0.37 H Urine Protein Urine Blood Urine Bilirubin Urine Bacteria Hyaline Casts Urine Mucus 03/04/21 03/05/21 03/05/21 17:39 06:28 06:28 WBC 15.2 H RBC 1.77 L Hgb 7.1 L Hct 22.1 L MCV 125.3 H MCH 40.2 H RDW 17.7 H Neutrophils # (Manual) Monocytes # (Manual) Nucleated RBCs Macrocytosis Marked A APTT ABG pH 7.50 H ABG HCO3 34 H ABG Total CO2 35 H ABG O2 Saturation 97.9 H Sodium Potassium 3.1 L Chloride Carbon Dioxide BUN Creatinine 0.61 L Glucose Calcium 7.7 L Total Bilirubin 1.5 H AST 179 H ALT 162 H Alkaline Phosphatase Creatine Kinase 971 H Troponin I Total Protein 4.5 L Albumin 2.2 L Lipase Procalcitonin Urine Protein Urine Blood Urine Bilirubin Urine Bacteria Hyaline Casts Urine Mucus Assessment and Plan Assessment: 1. Mental status changes with reported increased lethargy, likely secondary to toxic metabolic encephalopathy related to elevated liver enzymes, elevated ammonia level, leukocytosis and anemia. It is possible that the patient is postictal as certainly, seizures can occur in alcohol withdrawal Plan: 1. We will order EEG to assess for epileptiform activity 2. Continue alcohol withdrawal protocol Thank you for allowing us to participate in the care of this patient. Dr. Otero will assume neurologic coverage of this patient on March 06, 2021 Time with Patient: Greater than 30 (spent 40 minutes with patient via telemedicine)
--- NOTE | 2021-03-05 22:40 | PN ---
PROGRESS NOTE DATE OF SERVICE: 03/05/2021 REASON FOR FOLLOWUP: Leukocytosis and question of sepsis. INTERVAL HISTORY: The patient is afebrile. The patient is not a very good historian, unable to provide any history. No vomiting, diarrhea or other changes reported by the nursing staff. PHYSICAL EXAMINATION: Blood pressure 113/81 with a pulse of 90, temperature 97.9. He is 95% on room air. General description is a middle-aged male lying in bed in no distress. Respiratory system: Unlabored breathing, decreased breath sounds at the base. No wheeze. Heart S1, S2. Regular rate and rhythm. Abdomen soft, mildly tender. No guarding or rigidity. LABS: Hemoglobin is 7.1, white count 15.2, creatinine 0.61. Liver enzymes are mildly elevated. DIAGNOSTIC IMPRESSION AND PLAN: Patient with leukocytosis which is multifactorial in this patient with a history of alcoholism with abnormal , possibly from inflammation around the gallbladder. Patient is covered with Unasyn. Surgery is on the case. Will discuss with them further and monitor his clinical course closely. MMODL / IJN: [id number] /
[2021-03-06] MEDS: LORazepam 2 MG/ML INJ IV PRN ×3 (02:41→22:57)
[2021-03-06] MEDS: 0.9% NACL WITH KCL 20 MEQ/L 1,000 ML IV SCH (02:41)
[2021-03-06] MEDS: AMPICILLIN-SULBACTAM 3 GM in SODIUM CHLORIDE 0.9% 100 ML IVPB SCH ×4 (06:04→23:08)
[2021-03-06 06:22] LABS: Anisocytosis Slight; HCT 24.2 % (39.0-53.0); HGB 7.6 gm/dL (13.0-17.5); Hypochromasia Marked; MCH 40.5 pg (25.0-35.0); MCHC 31.5 g/dL (31.0-37.0); MCV 128.8 fL (80.0-100.0); Macrocytosis Marked; Mean Platelet Volume 8.5; Platelet Count 461 k/uL (150-450); Poikilocytosis Slight; RBC 1.88 m/uL (4.30-5.90); RDW 18.7 % (11.5-15.5); WBC 13.3 k/uL (3.8-10.6)
[2021-03-06 06:38] LABS: ALT 148 U/L (4-49); AST 160 U/L (17-59); African American GFR (CKD) >90 (>60 ml/min/1.73 sqM); Albumin 2.3 g/dL (3.5-5.0); Alkaline Phosphatase 127 U/L (38-126); Anion Gap 7 mmol/L; Blood Urea Nitrogen 13 mg/dL (9-20); Calcium 7.8 mg/dL (8.4-10.2); Carbon Dioxide 25 mmol/L (22-30); Chloride 111 mmol/L (98-107); Creatine Kinase 843 U/L (55-170); Glucose 78 mg/dL (74-99); Magnesium 1.5 mg/dL (1.6-2.3); Non-African American GFR(CKD) >90 (>60 ml/min/1.73 sqM); Potassium 3.4 mmol/L (3.5-5.1); Sodium 143 mmol/L (137-145); Total Bilirubin 1.4 mg/dL (0.2-1.3); Total Protein 4.7 g/dL (6.3-8.2)
[2021-03-06] MEDS: atenoloL 50 MG TAB PO SCH (09:50)
[2021-03-06] MEDS: MAGNESIUM SULFATE-D5W PMX 1 GM in DEXTROSE/WATER 1 100ML.BAG IVPB SCH ×3 (09:50→18:22)
[2021-03-06] MEDS: PANTOPRAZOLE 40 MG/10 ML VIAL IVP SCH ×2 (09:51→19:43)
[2021-03-06] MEDS: NICOTINE 21MG/24HR PATCH TRANSDERM SCH (09:51)
[2021-03-06] MEDS ORDERED: POTASSIUM CHLORIDE ER 20 MEQ TAB.ER PO STA (10:03)
--- NOTE | 2021-03-06 10:40 | P.PN ---
<Kelli Jacobo - Last Filed: 03/06/21 10:34> Subjective Progress Note Date: 03/06/21 CHIEF COMPLAINT: Anemia HISTORY OF PRESENT ILLNESS: Surgical service is following regards to patient's anemia. Hemoglobin did go up from 7.1-7.6. He is having diarrhea. He had multiple watery brown stools through the night. No reports of blood in the stools or black stools. He did receive mag citrate yesterday for constipation and fecal impaction. Afebrile. WBC has decreased from 15.2-13.3 hemoglobin 7.6 potassium 3.4 magnesium 1.5 PHYSICAL EXAM: VITAL SIGNS: Reviewed. GENERAL: Well-developed in no acute distress. HEENT: No sclera icterus. Extraocular movements grossly intact. Moist buccal mucosa. Head is atraumatic, normocephalic. ABDOMEN: Soft. Nondistended. Nontender. NEUROLOGIC: Awake and Confused ASSESSMENT: 1. Anemia 2. Constipation and fecal impaction 3. Alcohol withdrawal 4. Hypokalemia and hypomagnesemia PLAN: -Continue supportive care -Continue regular diet -Continue to monitor for signs or symptoms of bleeding -Continue monitor hemoglobin -Replace potassium -Magnesium already being replaced Physician Public Health Technologist note has been reviewed by physician. Signing provider agrees with the documented findings, assessment, and plan of care. Objective - Vital Signs Vital signs: Vital Signs Temp 99.1 F 03/06/21 09:45 Pulse 119 H 03/06/21 09:45 Resp 16 03/06/21 09:45 BP 119/77 03/06/21 09:45 Pulse Ox 95 03/06/21 09:45 Intake & Output 03/05/21 03/06/21 03/06/21 18:59 06:59 18:59 Intake Total 1720 480 Output Total 200 300 Balance 1520 180 Weight 61.5 kg Intake: Intake, IV Titration 1720 Amount 0.9% NaCl with KCl 20 Meq 520 /l 1,000 ml @ 130 mls/hr IV .Q7H42M [facility] Rx#: [id number] Ampicillin-Sulbactam 3 gm 200 In Sodium Chloride 0.9% 100 ml @ 200 mls/hr IVPB Q6HR [facility] Rx#:[id number] Sodium Chloride 0.9% 1, 950 000 ml @ 200 mls/hr IV . Q5H [facility] Rx#:[id number] cefTRIAXone 1 gm In 50 Sodium Chloride 0.9% 50 ml @ 100 mls/hr IVPB Q24HR [facility] Rx#:[id number] Oral 480 Output: Urine 200 300 Straight 200 Other: Voiding Method Indwelling Catheter Indwelling Catheter # Voids 700 # Bowel Movements 3 1 1 - Labs CBC & Chem 7: 03/06/21 05:30 03/06/21 05:30 Labs: Abnormal Lab Results - Last 24 Hours (Table) 03/06/21 03/06/21 Range/Units 05:30 05:30 WBC 13.3 H (3.8-10.6) k/uL RBC 1.88 L (4.30-5.90) m/uL Hgb 7.6 L (13.0-17.5) gm/dL Hct 24.2 L (39.0-53.0) % MCV 128.8 H (80.0-100.0) fL MCH 40.5 H (25.0-35.0) pg RDW 18.7 H (11.5-15.5) % Plt Count 461 H (150-450) k/uL Macrocytosis Marked A Potassium 3.4 L (3.5-5.1) mmol/L Chloride 111 H (98-107) mmol/L Creatinine 0.50 L (0.66-1.25) mg/dL Calcium 7.8 L (8.4-10.2) mg/dL Magnesium 1.5 L (1.6-2.3) mg/dL Total Bilirubin 1.4 H (0.2-1.3) mg/dL AST 160 H (17-59) U/L ALT 148 H (4-49) U/L Alkaline Phosphatase 127 H (38-126) U/L Creatine Kinase 843 H (55-170) U/L Total Protein 4.7 L (6.3-8.2) g/dL Albumin 2.3 L (3.5-5.0) g/dL Microbiology - Last 24 Hours (Table) 03/04/21 18:30 Urine Culture - Final Urine,Catheterized 03/04/21 13:30 Blood Culture - Preliminary Blood No Growth after 24 hours <Pato Peace - Last Filed: 03/06/21 18:00> Subjective As above. Patient not having any pain any longer. Multiple loose stools. Hemoglobin is stable. No gross evidence of bleeding. No surgical intervention planned at this time. 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 Would prefer GI perform endoscopic evaluation in the event that varices require endoscopic intervention. We'll sign off. Please call if needed. Objective - Vital Signs Vital signs: Vital Signs Temp 98 F 03/06/21 16:00 Pulse 93 03/06/21 16:00 Resp 18 03/06/21 16:00 BP 117/64 03/06/21 16:00 Pulse Ox 97 03/06/21 16:00 Intake & Output 03/05/21 03/06/21 03/06/21 18:59 06:59 18:59 Intake Total 1720 960 Output Total 200 300 Balance 1520 660 Weight 61.5 kg 61.5 kg Intake: Intake, IV Titration 1720 Amount 0.9% NaCl with KCl 20 Meq 520 /l 1,000 ml @ 130 mls/hr IV .Q7H42M [facility] Rx#: [id number] Ampicillin-Sulbactam 3 gm 200 In Sodium Chloride 0.9% 100 ml @ 200 mls/hr IVPB Q6HR [facility] Rx#:[id number] Sodium Chloride 0.9% 1, 950 000 ml @ 200 mls/hr IV . Q5H [facility] Rx#:[id number] cefTRIAXone 1 gm In 50 Sodium Chloride 0.9% 50 ml @ 100 mls/hr IVPB Q24HR [facility] Rx#:[id number] Oral 960 Output: Urine 200 300 Straight 200 Other: Voiding Method Indwelling Catheter Indwelling Catheter Indwelling Catheter # Voids 700 # Bowel Movements 3 1 1 - Labs CBC & Chem 7: 03/06/21 05:30 03/06/21 05:30 Labs: Abnormal Lab Results - Last 24 Hours (Table) 03/06/21 03/06/21 Range/Units 05:30 05:30 WBC 13.3 H (3.8-10.6) k/uL RBC 1.88 L (4.30-5.90) m/uL Hgb 7.6 L (13.0-17.5) gm/dL Hct 24.2 L (39.0-53.0) % MCV 128.8 H (80.0-100.0) fL MCH 40.5 H (25.0-35.0) pg RDW 18.7 H (11.5-15.5) % Plt Count 461 H (150-450) k/uL Macrocytosis Marked A Potassium 3.4 L (3.5-5.1) mmol/L Chloride 111 H (98-107) mmol/L Creatinine 0.50 L (0.66-1.25) mg/dL Calcium 7.8 L (8.4-10.2) mg/dL Magnesium 1.5 L (1.6-2.3) mg/dL Total Bilirubin 1.4 H (0.2-1.3) mg/dL AST 160 H (17-59) U/L ALT 148 H (4-49) U/L Alkaline Phosphatase 127 H (38-126) U/L Creatine Kinase 843 H (55-170) U/L Total Protein 4.7 L (6.3-8.2) g/dL Albumin 2.3 L (3.5-5.0) g/dL Microbiology - Last 24 Hours (Table) 03/04/21 13:30 Blood Culture - Preliminary Blood No Growth after 48 hours 03/04/21 18:30 Urine Culture - Final Urine,Catheterized Assessment and Plan (1) Anemia Current Visit: Yes Status: Acute Code(s): D64.9 - ANEMIA, UNSPECIFIED SNOMED Code(s): 782741595
[2021-03-06] MEDS: THIAMINE 200 MG in SODIUM CHLORIDE 0.9% 100 ML IVPB SCH (13:11)
--- NOTE | 2021-03-06 14:13 | EEG ---
ELECTROENCEPHALOGRAM REPORT DATE OF SERVICE: 03/06/2021 PREAMBLE: This is a 45-year-old male with alcohol use, had alcohol withdrawal, questionable seizure. This study is performed to evaluate for any epileptiform activity. EEG FINDINGS: This is a 21-channel digital EEG recorded with video competent, utilizing 10/20 international system with referential and bipolar montages. The background consists of well-developed, moderately well regulated, mixed frequencies of 10 hertz alpha intermixed with some fast frequency and some low frequency activity in some theta and occasional delta range. The background does not clearly seem to be reactive to eye opening or closing. Photic stimulation was not performed. Frequent disorganization and frequent myogenic activity was seen in bihemispheric region. Some drowsiness was seen with appearance of symmetric theta frequency rhythm. Deeper stages of sleep were not seen. No focal or generalized epileptiform activity was seen. IMPRESSION: This is a mildly abnormal EEG due to background slowing, with some mixed frequencies activity. This is suggestive of mild generalized cerebral dysfunction as can be seen with encephalopathy or related to medication effect. No epileptiform activity was seen. MMODL / IJN: [id number] /
--- NOTE | 2021-03-06 15:09 | P.PN ---
Subjective Progress Note Date: 03/06/21 Patient was seen by Dr. Grace for initial consultation yesterday 03/05/2021. Please refer to her note for details. Patient admitted for alcohol withdrawals. Patient was noted to be less arousable which prompted neurology consultation. EEG was performed. Patient still somewhat lethargic. He does wake up. Offers no complaints. Denies headache. Telemetry monitoring showing sinus rhythm, sinus tachycardia with some PSVT, PVC and PAC. Objective - Vital Signs Vital signs: Vital Signs Temp 99 F 03/06/21 12:10 Pulse 91 03/06/21 12:10 Resp 16 03/06/21 12:10 BP 118/80 03/06/21 12:10 Pulse Ox 97 03/06/21 12:10 Intake & Output 03/05/21 03/06/21 03/06/21 18:59 06:59 18:59 Intake Total 1720 480 Output Total 200 300 Balance 1520 180 Weight 61.5 kg 61.5 kg Intake: Intake, IV Titration 1720 Amount 0.9% NaCl with KCl 20 Meq 520 /l 1,000 ml @ 130 mls/hr IV .Q7H42M [facility] Rx#: [id number] Ampicillin-Sulbactam 3 gm 200 In Sodium Chloride 0.9% 100 ml @ 200 mls/hr IVPB Q6HR [facility] Rx#:[id number] Sodium Chloride 0.9% 1, 950 000 ml @ 200 mls/hr IV . Q5H [facility] Rx#:[id number] cefTRIAXone 1 gm In 50 Sodium Chloride 0.9% 50 ml @ 100 mls/hr IVPB Q24HR [facility] Rx#:[id number] Oral 480 Output: Urine 200 300 Straight 200 Other: Voiding Method Indwelling Catheter Indwelling Catheter Indwelling Catheter # Voids 700 # Bowel Movements 3 1 1 - Exam Patient is slightly groggy. Patient appears older than his stated age. Per nurse report, he is sometimes more alert and awake, sometimes hallucinates. No seizures reported. Patient still is tremulous of outstretched hands. Patient states that he lives in [facility]. He knows that he is in the hospital, but does not know the name. He knows it is February and the year is 2020. Tone and bulk of muscles normal. Muscle strength is normal except hip flexion which is weak about 4-bilaterally. Ankle dorsiflexion is normal. Upper extremity strength normal. - Labs CBC & Chem 7: 03/06/21 05:30 03/06/21 05:30 Labs: Abnormal Lab Results - Last 24 Hours (Table) 03/06/21 03/06/21 Range/Units 05:30 05:30 WBC 13.3 H (3.8-10.6) k/uL RBC 1.88 L (4.30-5.90) m/uL Hgb 7.6 L (13.0-17.5) gm/dL Hct 24.2 L (39.0-53.0) % MCV 128.8 H (80.0-100.0) fL MCH 40.5 H (25.0-35.0) pg RDW 18.7 H (11.5-15.5) % Plt Count 461 H (150-450) k/uL Macrocytosis Marked A Potassium 3.4 L (3.5-5.1) mmol/L Chloride 111 H (98-107) mmol/L Creatinine 0.50 L (0.66-1.25) mg/dL Calcium 7.8 L (8.4-10.2) mg/dL Magnesium 1.5 L (1.6-2.3) mg/dL Total Bilirubin 1.4 H (0.2-1.3) mg/dL AST 160 H (17-59) U/L ALT 148 H (4-49) U/L Alkaline Phosphatase 127 H (38-126) U/L Creatine Kinase 843 H (55-170) U/L Total Protein 4.7 L (6.3-8.2) g/dL Albumin 2.3 L (3.5-5.0) g/dL Microbiology - Last 24 Hours (Table) 03/04/21 18:30 Urine Culture - Final Urine,Catheterized 03/04/21 13:30 Blood Culture - Preliminary Blood No Growth after 24 hours Assessment and Plan Assessment: 1. Mental status changes with reported increased lethargy, likely secondary to toxic metabolic encephalopathy related to elevated liver enzymes, elevated ammonia level, leukocytosis and anemia. 2. Alcoholism with alcohol withdrawal. Doubt seizure. Plan: * EEG was performed today, which was mildly abnormal because of background disorganization and some slowing. This is suggestive mild generalized cerebral dysfunction as can be seen with toxic metabolic encephalopathy or related to medication effect. No epileptiform activity was seen. * No indication for antiepileptic medication. * Continue alcohol withdrawal protocol.
--- NOTE | 2021-03-06 15:54 | P.PN ---
Subjective Progress Note Date: 03/06/21 (delayed charting seen at 1030) Principal diagnosis: confusion Issue is a 45-year-old male with no known past medical history who came to the ER to be evaluated for alcohol withdrawal symptoms. Once we're asked to evaluate the patient in the ER he was already lethargic and sleepy. Initial evaluation in the ER showed a white blood cell count of 15.6, sodium 133, trop onin mildly elevated at 0.115. Total bilirubin elevated at 2.2 and AST 273, ALT 205. Is admitted for alcohol withdrawal and started on the CIWA protocol. Cardiology was consulted and patient underwent echocardiogram with ejection fraction 55-60%. Liver ultrasound demonstrated hepatomegaly with concerns for hepatic steatosis and hepatocellular disease with some gallbladder sludge. Head CT showed no acute process. CT abdomen and pelvis showed fatty infiltration of the liver as well as distended gallbladder and rectal fecal impaction. Infectious disease was consulted and patient was transitioned from Rocephin to Unasyn due to concerns over possible gram-negative pathogen from gallbladder dysfunction. Surgery was consulted. They recommended concentrating and correcting the patient's constipation and started magnesium citrate. Due to his continued confusion neurology was consulted. He underwent a head CT which showed no acute process. EEG is pending. Ammonia level was checked on 03/04 and was elevated at 111. Patient seen and examined at bedside. He is significantly confused. He is able to squeeze my hand and followed simple commands. He thinks it is 2000. He is aware that he is in the hospital. General: Appearing, mild distress, appears at stated age Derm: warm, dry Head: atraumatic, normocephalic, symmetric Eyes: EOMI, no lid lag, anicteric sclera Mouth: no lip lesion, mucus membranes moist Cardiovascular: S1S2 reg, no murmur, positive posterior tibial pulse bilateral, Lungs: Decreased breath sounds bilateral, no rhonchi, no rales , no accessory muscle use Abdominal: soft, nontender to palpation, no guarding, no appreciable organomegaly Ext: no gross muscle atrophy, no edema, no contractures Neuro: CN II-XI grossly intact, no focal neuro deficits Psych: Alert, and O 2, flattened affect, picking at things that are not there or spotting to internal stimuli Acute encephalopathy suspect combination of alcohol withdrawal as well as elevated ammonia levels secondary to liver disease Alcoholic hepatitis with elevated liver enzymes Fatty liver diseae -Recheck Ammonia level, initiate lactulose immediately if continues to be elevated - stat PTT and PT to calculate maddery -GI consultation if ammonia level is elevated -Thiamine, folic acid, CIWA protocol -Multivitamin -Follow liver enzymes -Avoid hepatotoxic agents -Neurology recommendations appreciated: EEG with slowing consistent with metabolic encephalopathy and CT head without acute intracranial process Gallbladder sludge with elevated white blood cell count -Suspect elevated white blood cell count is secondary to alcoholic hepatitis -Clinical exam not consistent with gallbladder disease -Continue Unasyn -Surgery and ID recommendations appreciated -Procalcitonin normal Thrombocytosis -Suspect reactive Troponin elevation, flat, not consistent with acute coronary syndrome Cardiology recommendations appreciated - Continue with atenolol Rhabdo -IV fluids completed -Became normalized -No need to continue to fall Hypokalemia and hypomagnesemia -Replace -Recheck in a.m. DVT prophylaxis: Heparin Discussed with: Patient, nursing Anticipated discharge: in 4-[address]: home A total of 65 minutes was spent on the care of this complex patient more than 50 % of the time was spent in counseling and care coordination. Objective - Vital Signs Vital signs: Vital Signs Temp 99 F 03/06/21 12:10 Pulse 91 03/06/21 12:10 Resp 16 03/06/21 14:00 BP 118/80 03/06/21 12:10 Pulse Ox 97 03/06/21 12:10 Intake & Output 03/05/21 03/06/21 03/06/21 18:59 06:59 18:59 Intake Total 1720 720 Output Total 200 300 Balance 1520 420 Weight 61.5 kg 61.5 kg Intake: Intake, IV Titration 1720 Amount 0.9% NaCl with KCl 20 Meq 520 /l 1,000 ml @ 130 mls/hr IV .[id number] [facility] Rx#: [id number] Ampicillin-Sulbactam 3 gm 200 In Sodium Chloride 0.9% 100 ml @ 200 mls/hr IVPB Q6HR [facility] Rx#:[id number] Sodium Chloride 0.9% 1, 950 000 ml @ 200 mls/hr IV . Q5H [facility] Rx#:[id number] cefTRIAXone 1 gm In 50 Sodium Chloride 0.9% 50 ml @ 100 mls/hr IVPB Q24HR [facility] Rx#:[id number] Oral 720 Output: Urine 200 300 Straight 200 Other: Voiding Method Indwelling Catheter Indwelling Catheter Indwelling Catheter # Voids 700 # Bowel Movements 3 1 1 - Labs CBC & Chem 7: 03/06/21 05:30 03/06/21 05:30 Labs: Abnormal Lab Results - Last 24 Hours (Table) 03/06/21 03/06/21 Range/Units 05:30 05:30 WBC 13.3 H (3.8-10.6) k/uL RBC 1.88 L (4.30-5.90) m/uL Hgb 7.6 L (13.0-17.5) gm/dL Hct 24.2 L (39.0-53.0) % MCV 128.8 H (80.0-100.0) fL MCH 40.5 H (25.0-35.0) pg RDW 18.7 H (11.5-15.5) % Plt Count 461 H (150-450) k/uL Macrocytosis Marked A Potassium 3.4 L (3.5-5.1) mmol/L Chloride 111 H (98-107) mmol/L Creatinine 0.50 L (0.66-1.25) mg/dL Calcium 7.8 L (8.4-10.2) mg/dL Magnesium 1.5 L (1.6-2.3) mg/dL Total Bilirubin 1.4 H (0.2-1.3) mg/dL AST 160 H (17-59) U/L ALT 148 H (4-49) U/L Alkaline Phosphatase 127 H (38-126) U/L Creatine Kinase 843 H (55-170) U/L Total Protein 4.7 L (6.3-8.2) g/dL Albumin 2.3 L (3.5-5.0) g/dL Microbiology - Last 24 Hours (Table) 03/04/21 18:30 Urine Culture - Final Urine,Catheterized 03/04/21 13:30 Blood Culture - Preliminary Blood No Growth after 24 hours
[2021-03-06] MEDS ORDERED: LACTULOSE 20 GM/30 ML CUP PO SCH (16:00)
[2021-03-06 16:24] LABS: Partial Thromboplastin Time 23.4 sec (22.0-30.0)
--- NOTE | 2021-03-06 21:59 | PN ---
PROGRESS NOTE DATE OF SERVICE: 03/06/2021. REASON FOR FOLLOWUP: Leukocytosis, possible abdominal source. INTERVAL HISTORY: Patient is afebrile. The patient seems to be slightly more awake and alert. He was being fed by the nurse aide. No vomiting or diarrhea or any other changes reported by nursing staff. Patient himself did not provide any history. PHYSICAL EXAMINATION: Blood pressure 152/85 with pulse , temperature 98.5. He is 96% on room air. General description is a middle-aged male lying in bed in no distress. Respiratory system: Unlabored breathing, clear to auscultation anteriorly. Heart S1, S2. Regular rate. Abdomen: Soft, mildly distended. No guarding. No rigidity. LABS: Hemoglobin 7.4, white count 13.3, creatinine 0.50. Liver enzymes are elevated. DIAGNOSTIC IMPRESSION AND PLAN: Patient with leukocytosis, multifactorial. Abdominal CT, question of gallbladder disease. Patient is covered with Unasyn. White count is trending down. Continue current antibiotics and monitor clinical course closely. MMODL / IJN: [id number] /
[2021-03-07] MEDS: LORazepam 2 MG/ML INJ IV PRN ×4 (01:28→17:49)
[2021-03-07] MEDS: AMPICILLIN-SULBACTAM 3 GM in SODIUM CHLORIDE 0.9% 100 ML IVPB SCH ×3 (05:04→18:28)
[2021-03-07 06:05] LABS: Anisocytosis Slight; HCT 21.9 % (39.0-53.0); Hypochromasia Marked; MCHC 31.8 g/dL (31.0-37.0); MCV 125.7 fL (80.0-100.0); Macrocytosis Marked; Mean Platelet Volume 8.7; Platelet Count 443 k/uL (150-450); Poikilocytosis Slight; RBC 1.74 m/uL (4.30-5.90); RDW 19.4 % (11.5-15.5); WBC 9.9 k/uL (3.8-10.6)
[2021-03-07 06:27] LABS: ALT 137 U/L (4-49); AST 114 U/L (17-59); African American GFR (CKD) >90 (>60 ml/min/1.73 sqM); Albumin 2.1 g/dL (3.5-5.0); Alkaline Phosphatase 116 U/L (38-126); Anion Gap 4 mmol/L; Blood Urea Nitrogen 9 mg/dL (9-20); Calcium 7.8 mg/dL (8.4-10.2); Carbon Dioxide 27 mmol/L (22-30); Chloride 113 mmol/L (98-107); Glucose 95 mg/dL (74-99); Magnesium 1.4 mg/dL (1.6-2.3); Non-African American GFR(CKD) >90 (>60 ml/min/1.73 sqM); Sodium 144 mmol/L (137-145); Total Bilirubin 1.2 mg/dL (0.2-1.3); Total Protein 4.3 g/dL (6.3-8.2)
[2021-03-07] MEDS ORDERED: POTASSIUM CHLORIDE 20 MEQ in WATER FOR INJECTION 1 100ML.BAG IVPB STA (08:08)
[2021-03-07] MEDS ORDERED: POTASSIUM CHLORIDE ER 20 MEQ TAB.ER PO STA (08:08)
[2021-03-07] MEDS: PANTOPRAZOLE 40 MG/10 ML VIAL IVP SCH ×2 (09:45→22:10)
[2021-03-07] MEDS: NICOTINE 21MG/24HR PATCH TRANSDERM SCH (09:46)
[2021-03-07] MEDS: atenoloL 50 MG TAB PO SCH (09:46)
[2021-03-07 11:41] LABS: % Iron Saturation 18.46 (15.00-50.00); Iron 26 ug/dL (65-175); Total Iron Binding Capacity 141 ug/dL (228-460); Vitamin B12 >2000.0 pg/mL (200.0-944.0)
--- NOTE | 2021-03-07 11:54 | P.PN ---
Subjective Progress Note Date: 03/07/21 03/07/2021: As I entered the room, patient was holding his blanket to his mouth, almost as if he is drinking something. Patient hallucinating, states is drinking apple/throat juice. 03/06/2021: Patient was seen by Dr. Grace for initial consultation yesterday 03/05/2021. Please refer to her note for details. Patient admitted for alcohol withdrawals. Patient was noted to be less arousable which prompted neurology consultation. EEG was performed. Patient still somewhat lethargic. He does wake up. Offers no complaints. Denies headache. Telemetry monitoring showing sinus rhythm, sinus tachycardia with some PSVT, PVC and PAC. Objective - Vital Signs Vital signs: Vital Signs Temp 98.9 F 03/07/21 10:05 Pulse 86 03/07/21 10:05 Resp 16 03/07/21 10:05 BP 131/86 03/07/21 10:05 Pulse Ox 95 03/07/21 10:05 Intake & Output 03/06/21 03/07/21 03/07/21 18:59 06:59 18:59 Intake Total 960 Output Total 300 1025 Balance 660 -1025 Weight 61.5 kg Intake: Oral 960 Output: Urine 300 1025 Other: Voiding Method Indwelling Catheter Indwelling Catheter Indwelling Catheter # Bowel Movements 1 1 - Exam Patient is slightly groggy. Patient appears older than his stated age. Per nurse report, he is sometimes more alert and awake, sometimes hallucinates. No seizures reported. Patient still is tremulous of outstretched hands. Patient states that he lives in [place] in [place]. He knows that he is in the hospital, but does not know the name. He states he is in [place]. He knows it is February and the year is 2020. Tone and bulk of muscles normal. Muscle strength is normal except hip flexion which is weak about 4-bilaterally. Ankle dorsiflexion is normal. Upper extremity strength normal. - Labs CBC & Chem 7: 03/07/21 05:25 03/07/21 05:25 Labs: Abnormal Lab Results - Last 24 Hours (Table) 03/07/21 03/07/21 03/07/21 Range/Units 05:25 05:25 05:25 RBC 1.74 L (4.30-5.90) m/uL Hgb 7.0 L (13.0-17.5) gm/dL Hct 21.9 L (39.0-53.0) % MCV 125.7 H (80.0-100.0) fL MCH 40.0 H (25.0-35.0) pg RDW 19.4 H (11.5-15.5) % Macrocytosis Marked A Potassium 3.0 L (3.5-5.1) mmol/L Chloride 113 H (98-107) mmol/L Creatinine 0.46 L (0.66-1.25) mg/dL Calcium 7.8 L (8.4-10.2) mg/dL Magnesium 1.4 L (1.6-2.3) mg/dL Iron 26 L (65-175) ug/dL TIBC 141 L (228-460) ug/dL Transferrin 101.0 L (204.0-354.0) mg/dL Ferritin 1698.0 H (22.0-322.0) ng/mL AST 114 H (17-59) U/L ALT 137 H (4-49) U/L Total Protein 4.3 L (6.3-8.2) g/dL Albumin 2.1 L (3.5-5.0) g/dL Vitamin B12 >2000.0 H (200.0-944.0) pg/mL Microbiology - Last 24 Hours (Table) 03/04/21 13:30 Blood Culture - Preliminary Blood No Growth after 48 hours 03/04/21 18:30 Urine Culture - Final Urine,Catheterized Assessment and Plan Assessment: 1. Mental status changes with reported increased lethargy, likely secondary to toxic metabolic encephalopathy related to elevated liver enzymes, hypokalemia, leukocytosis and anemia. 2. Alcoholism with alcohol withdrawal. Doubt seizure. Plan: * EEG was performed 03/06/2021, which was mildly abnormal because of background disorganization and some slowing. This is suggestive mild generalized cerebral dysfunction as can be seen with toxic metabolic encephalopathy or related to medication effect. No epileptiform activity was seen. * No indication for antiepileptic medication. * Continue alcohol withdrawal protocol. * B12 > 2000 * Medical management as per IM.
[2021-03-07] MEDS: THIAMINE 200 MG in SODIUM CHLORIDE 0.9% 100 ML IVPB SCH (12:17)
[2021-03-07] MEDS: MAGNESIUM SULFATE-D5W PMX 1 GM in DEXTROSE/WATER 1 100ML.BAG IVPB SCH ×3 (12:21→18:28)
--- NOTE | 2021-03-07 17:13 | P.PN ---
Subjective Progress Note Date: 03/07/21 (delayed charting seen at 1005) Principal diagnosis: confusion Issue is a 45-year-old male with no known past medical history who came to the ER to be evaluated for alcohol withdrawal symptoms. Once we're asked to evaluate the patient in the ER he was already lethargic and sleepy. Initial evaluation in the ER showed a white blood cell count of 15.6, sodium 133, trop onin mildly elevated at 0.115. Total bilirubin elevated at 2.2 and AST 273, ALT 205. Is admitted for alcohol withdrawal and started on the CIWA protocol. Cardiology was consulted and patient underwent echocardiogram with ejection fraction 55-60%. Liver ultrasound demonstrated hepatomegaly with concerns for hepatic steatosis and hepatocellular disease with some gallbladder sludge. Head CT showed no acute process. CT abdomen and pelvis showed fatty infiltration of the liver as well as distended gallbladder and rectal fecal impaction. Infectious disease was consulted and patient was transitioned from Rocephin to Unasyn due to concerns over possible gram-negative pathogen from gallbladder dysfunction. Surgery was consulted. They recommended concentrating and correcting the patient's constipation and started magnesium citrate. Due to his continued confusion neurology was consulted. He underwent a head CT which showed no acute process. EEG consistent with encephalopathy. Ammonia level was normal. He was seen by neurology and exam consistent with encephalopathy. Patient seen and examined at bedside. He is lethargic and responding to internal stimuli. He is able to answer no to pain and shortness of breath. He can follow commands, but is unable to answer date and location. General: non toxic, mild distress, appears older than stated age Derm: warm, dry Head: atraumatic, normocephalic, symmetric Eyes: EOMI, no lid lag, anicteric sclera Mouth: no lip lesion, mucus membranes moist Cardiovascular: S1S2 reg, no murmur, positive posterior tibial pulse bilateral, Lungs: Decreased breath sounds bilateral, no rhonchi, no rales , no accessory muscle use Abdominal: soft, nontender to palpation, no guarding, no appreciable organomegaly Ext: no gross muscle atrophy, no edema, no contractures Neuro: CN II-XI grossly intact, no focal neuro deficits Psych: lethargic, not speaking in full sentences. Acute encephalopathy suspect combination of alcohol withdrawal as well as elevated ammonia levels secondary to liver disease Alcoholic hepatitis with elevated liver enzymes Fatty liver diseae - PT/ptt normal -Thiamine, folic acid, CIWA protocol -Multivitamin -Follow liver enzymes -Avoid hepatotoxic agents -Neurology recommendations appreciated: EEG with slowing consistent with metabolic encephalopathy and CT head without acute intracranial process Gallbladder sludge with elevated white blood cell count -Suspect elevated white blood cell count is secondary to alcoholic hepatitis/ demargination -Clinical exam not consistent with gallbladder disease -Continue Unasyn -Surgery and ID recommendations appreciated -Procalcitonin normal Thrombocytosis -Suspect reactive Troponin elevation, flat, not consistent with acute coronary syndrome Cardiology recommendations appreciated - Continue with atenolol Rhabdo -IV fluids completed -Became normalized -No need to continue to fall Hypokalemia and hypomagnesemia -Replace -Recheck in a.m. DVT prophylaxis: Heparin Discussed with: Patient, nursing Anticipated discharge: in 4-[address]: home A total of 35 minutes was spent on the care of this complex patient more than 50% of the time was spent in counseling and care coordination. Objective - Vital Signs Vital signs: Vital Signs Temp 98.7 F 03/07/21 12:00 Pulse 85 03/07/21 12:00 Resp 18 03/07/21 12:00 BP 140/84 03/07/21 12:00 Pulse Ox 93 L 03/07/21 12:00 Intake & Output 03/06/21 03/07/21 03/07/21 18:59 06:59 18:59 Intake Total 960 650 Output Total 300 1025 Balance 660 -1025 650 Weight 61.5 kg Intake: Intake, IV Titration 400 Amount Ampicillin-Sulbactam 3 gm 100 In Sodium Chloride 0.9% 100 ml @ 200 mls/hr IVPB Q6HR [facility] Rx#:[id number] Magnesium Sulfate-D5w Pmx 100 1 gm In Dextrose/Water 1 100ml.bag @ 100 mls/hr IVPB Q1H [facility] Rx#: [id number] Potassium Chloride 20 meq 100 In Water For Injection 1 100ml.bag @ 50 mls/hr IVPB ONCE [facility] Rx#: [id number] Thiamine 200 mg In Sodium 100 Chloride 0.9% 100 ml @ 200 mls/hr IVPB DAILY [facility] Rx#:[id number] Oral 960 250 Output: Urine 300 1025 Other: Voiding Method Indwelling Catheter Indwelling Catheter Indwelling Catheter # Bowel Movements 1 1 3 - Labs CBC & Chem 7: 03/07/21 05:25 03/07/21 05:25 Labs: Abnormal Lab Results - Last 24 Hours (Table) 03/07/21 03/07/21 03/07/21 Range/Units 05:25 05:25 05:25 RBC 1.74 L (4.30-5.90) m/uL Hgb 7.0 L (13.0-17.5) gm/dL Hct 21.9 L (39.0-53.0) % MCV 125.7 H (80.0-100.0) fL MCH 40.0 H (25.0-35.0) pg RDW 19.4 H (11.5-15.5) % Macrocytosis Marked A Potassium 3.0 L (3.5-5.1) mmol/L Chloride 113 H (98-107) mmol/L Creatinine 0.46 L (0.66-1.25) mg/dL Calcium 7.8 L (8.4-10.2) mg/dL Magnesium 1.4 L (1.6-2.3) mg/dL Iron 26 L (65-175) ug/dL TIBC 141 L (228-460) ug/dL Transferrin 101.0 L (204.0-354.0) mg/dL Ferritin 1698.0 H (22.0-322.0) ng/mL AST 114 H (17-59) U/L ALT 137 H (4-49) U/L Total Protein 4.3 L (6.3-8.2) g/dL Albumin 2.1 L (3.5-5.0) g/dL Vitamin B12 >2000.0 H (200.0-944.0) pg/mL Microbiology - Last 24 Hours (Table) 03/04/21 13:30 Blood Culture - Preliminary Blood No Growth after 48 hours
[2021-03-07] MEDS: HEPARIN SODIUM,PORCINE/PF 5,000 UNIT/0.5 ML SYRINGE SQ SCH (17:33)
[2021-03-07] MEDS: MAGNESIUM OXIDE 400 MG TAB PO SCH (22:10)
--- NOTE | 2021-03-07 22:52 | PN ---
PROGRESS NOTE DATE OF SERVICE: 03/07/2021 REASON FOR FOLLOWUP: Leukocytosis, possible abdominal source. INTERVAL HISTORY: The patient is afebrile. The patient seems slightly more awake and alert today. Breathing comfortably. When asked specifically, denies chest pain or cough. No abdominal pain or diarrhea. PHYSICAL EXAMINATION: Blood pressure is 111/75 with a pulse of 83, temperature 97.8. He is 96% on room air. General description is a middle-aged male lying in bed in no distress. Respiratory system: Unlabored breathing. Clear to auscultation anteriorly. Heart S1, S2. Regular rate and rhythm. Abdomen soft, no tenderness. No guarding or rigidity. LABS: Hemoglobin is , white count 9.9, creatinine 0.46. DIAGNOSTIC IMPRESSION AND PLAN: Patient with elevated white count, fever; did have for possible Gram-negative disease. Surgical team on the case. The patient is on Unasyn. White count has normalized. Continue supportive care. MMODL / IJN: [id number] /
[2021-03-08] MEDS: AMPICILLIN-SULBACTAM 3 GM in SODIUM CHLORIDE 0.9% 100 ML IVPB SCH ×3 (00:40→12:39)
[2021-03-08] MEDS: HEPARIN SODIUM,PORCINE/PF 5,000 UNIT/0.5 ML SYRINGE SQ SCH ×3 (00:40→15:31)
[2021-03-08] MEDS: LORazepam 2 MG/ML INJ IV PRN (03:29)
[2021-03-08 06:03] LABS: Anisocytosis Slight; HCT 24.3 % (39.0-53.0); HGB 7.3 gm/dL (13.0-17.5); Hypochromasia Marked; MCH 38.5 pg (25.0-35.0); MCHC 30.1 g/dL (31.0-37.0); Macrocytosis Marked; Mean Platelet Volume 8.4; Platelet Count 521 k/uL (150-450); Poikilocytosis Slight; RBC 1.89 m/uL (4.30-5.90); RDW 18.8 % (11.5-15.5); WBC 9.7 k/uL (3.8-10.6)
[2021-03-08 06:07] LABS: MCV 128.1 fL (80.0-100.0)
[2021-03-08 06:14] LABS: ALT 132 U/L (4-49); AST 94 U/L (17-59); African American GFR (CKD) >90 (>60 ml/min/1.73 sqM); Albumin 2.2 g/dL (3.5-5.0); Alkaline Phosphatase 122 U/L (38-126); Anion Gap 3 mmol/L; Blood Urea Nitrogen 6 mg/dL (9-20); Calcium 7.6 mg/dL (8.4-10.2); Carbon Dioxide 26 mmol/L (22-30); Chloride 113 mmol/L (98-107); Glucose 76 mg/dL (74-99); Magnesium 1.5 mg/dL (1.6-2.3); Non-African American GFR(CKD) >90 (>60 ml/min/1.73 sqM); Phosphorus 3.4 mg/dL (2.5-4.5); Sodium 142 mmol/L (137-145); Total Bilirubin 1.6 mg/dL (0.2-1.3); Total Protein 4.7 g/dL (6.3-8.2)
[2021-03-08] MEDS: POTASSIUM CHLORIDE ER 20 MEQ TAB.ER PO SCH ×3 (08:45→16:10)
[2021-03-08] MEDS: MAGNESIUM OXIDE 400 MG TAB PO SCH ×2 (08:45→21:41)
[2021-03-08] MEDS: PANTOPRAZOLE 40 MG/10 ML VIAL IVP SCH ×2 (08:45→21:41)
[2021-03-08] MEDS: NICOTINE 21MG/24HR PATCH TRANSDERM SCH (08:45)
[2021-03-08] MEDS: atenoloL 50 MG TAB PO SCH (08:45)
[2021-03-08] MEDS: THIAMINE 200 MG in SODIUM CHLORIDE 0.9% 100 ML IVPB SCH (08:53)
[2021-03-08] MEDS ORDERED: Potassium Replacement Protocol 1 EACH MISC MISCELLANE PRN (12:40)
[2021-03-08] MEDS ORDERED: POTASSIUM CHLORIDE 20 MEQ in WATER FOR INJECTION 1 100ML.BAG IVPB STA (14:49)
--- NOTE | 2021-03-08 14:51 | P.PN ---
Subjective Progress Note Date: 03/08/21 (delayed charting seen at 0915) Principal diagnosis: confusion Issue is a 45-year-old male with no known past medical history who came to the ER to be evaluated for alcohol withdrawal symptoms. Once we're asked to evaluate the patient in the ER he was already lethargic and sleepy. Initial evaluation in the ER showed a white blood cell count of 15.6, sodium 133, trop onin mildly elevated at 0.115. Total bilirubin elevated at 2.2 and AST 273, ALT 205. Is admitted for alcohol withdrawal and started on the CIWA protocol. Cardiology was consulted and patient underwent echocardiogram with ejection fraction 55-60%. Liver ultrasound demonstrated hepatomegaly with concerns for hepatic steatosis and hepatocellular disease with some gallbladder sludge. Head CT showed no acute process. CT abdomen and pelvis showed fatty infiltration of the liver as well as distended gallbladder and rectal fecal impaction. Infectious disease was consulted and patient was transitioned from Rocephin to Unasyn due to concerns over possible gram-negative pathogen from gallbladder dysfunction. Surgery was consulted. They recommended concentrating and correcting the patient's constipation and started magnesium citrate. Due to his continued confusion neurology was consulted. He underwent a head CT which showed no acute process. EEG consistent with encephalopathy. Ammonia level was normal. He was seen by neurology and exam consistent with encephalopathy. Patient seen and examined at bedside. He continues to be stuporous. He is able to answer the question as to date with 2000, he does answer the question of pleurisy with [facility]. 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 He denies any pain. General: non toxic, mild distress, appears older than stated age Derm: warm, dry Head: atraumatic, normocephalic, symmetric Eyes: EOMI, no lid lag, anicteric sclera Mouth: no lip lesion, mucus membranes moist Cardiovascular: S1S2 reg, no murmur, positive posterior tibial pulse bilateral, Lungs: Decreased breath sounds bilateral, no rhonchi, no rales , no accessory muscle use Abdominal: soft, nontender to palpation, no guarding, no appreciable organomegaly Ext: no gross muscle atrophy, no edema, no contractures Neuro: CN II-XI grossly intact, no focal neuro deficits Psych: Stuporous, alert to self, year-2000, location-[facility] Acute encephalopathy suspect combination of Delirium tremens Alcoholic hepatitis with elevated liver enzymes Fatty liver disease - PT/ptt normal -Thiamine, folic acid, CIWA protocol -Multivitamin -Follow liver enzymes -Avoid hepatotoxic agents -Neurology recommendations appreciated: EEG with slowing consistent with metabolic encephalopathy and CT head without acute intracranial process - repeat ammonia level Pyrexia -Check urinalysis, remove Chu catheter -Check chest x-ray - check procalcitonin - may be related to DTs Gallbladder sludge with elevated white blood cell count -Suspect elevated white blood cell count is secondary to alcoholic hepatitis/ demargination -Clinical exam not consistent with gallbladder disease -Continue Unasyn -Surgery and ID recommendations appreciated -Procalcitonin normal Thrombocytosis -Suspect reactive Troponin elevation, flat, not consistent with acute coronary syndrome Cardiology recommendations appreciated - Continue with atenolol Rhabdo -IV fluids completed -Became normalized -No need to continue to fall Hypokalemia and hypomagnesemia -Replace -Recheck in a.m. DVT prophylaxis: Heparin Discussed with: Patient, nursing Anticipated discharge: in 4-[address]: home A total of 35 minutes was spent on the care of this complex patient more than 50% of the time was spent in counseling and care coordination. Objective - Vital Signs Vital signs: Vital Signs Temp 100.1 F H 03/08/21 12:38 Pulse 90 03/08/21 12:38 Resp 18 03/08/21 12:38 BP 109/74 03/08/21 12:38 Pulse Ox 98 03/08/21 12:38 Intake & Output 03/07/21 03/08/21 03/08/21 18:59 06:59 18:59 Intake Total 650 118 Output Total 1400 Balance 650 -1400 118 Weight 57.5 kg Intake: Intake, IV Titration 400 Amount Ampicillin-Sulbactam 3 gm 100 In Sodium Chloride 0.9% 100 ml @ 200 mls/hr IVPB Q6HR [facility] Rx#:[id number] Magnesium Sulfate-D5w Pmx 100 1 gm In Dextrose/Water 1 100ml.bag @ 100 mls/hr IVPB Q1H [facility] Rx#: [id number] Potassium Chloride 20 meq 100 In Water For Injection 1 100ml.bag @ 50 mls/hr IVPB ONCE [facility] Rx#: [id number] Thiamine 200 mg In Sodium 100 Chloride 0.9% 100 ml @ 200 mls/hr IVPB DAILY [facility] Rx#:[id number] Oral 250 118 Output: Urine 1400 Other: Voiding Method Indwelling Catheter Indwelling Catheter Indwelling Catheter # Bowel Movements 1 - Labs CBC & Chem 7: 03/08/21 05:14 03/08/21 05:14 Labs: Abnormal Lab Results - Last 24 Hours (Table) 03/07/21 03/08/21 03/08/21 Range/Units 05:25 05:14 05:14 RBC 1.89 L (4.30-5.90) m/uL Hgb 7.3 L (13.0-17.5) gm/dL Hct 24.3 L (39.0-53.0) % MCV 128.1 H (80.0-100.0) fL MCH 38.5 H (25.0-35.0) pg MCHC 30.1 L (31.0-37.0) g/dL RDW 18.8 H (11.5-15.5) % Plt Count 521 H (150-450) k/uL Macrocytosis Marked A Potassium 3.0 L (3.5-5.1) mmol/L Chloride 113 H (98-107) mmol/L BUN 6 L (9-20) mg/dL Creatinine 0.44 L (0.66-1.25) mg/dL Calcium 7.6 L (8.4-10.2) mg/dL Magnesium 1.5 L (1.6-2.3) mg/dL Total Bilirubin 1.6 H (0.2-1.3) mg/dL AST 94 H (17-59) U/L ALT 132 H (4-49) U/L Total Protein 4.7 L (6.3-8.2) g/dL Albumin 2.2 L (3.5-5.0) g/dL RBC Folate 1,240 H (280 - 791) ng/mL Microbiology - Last 24 Hours (Table) 03/04/21 13:30 Blood Culture - Preliminary Blood No Growth after 72 hours
[2021-03-08] MEDS ORDERED: POTASSIUM BICARB-CITRIC ACID 25 MEQ TABLET.EFF PO ONE (15:00)
[2021-03-08] MEDS: MAGNESIUM SULFATE-D5W PMX 1 GM in DEXTROSE/WATER 1 100ML.BAG IVPB SCH ×4 (15:31→21:40)
[2021-03-08] MEDS: LACTATED RINGERS 1,000 ML IV SCH (15:32)
--- NOTE | 2021-03-08 15:32 | XR ---
EXAMINATION TYPE: XR chest 1V portable DATE OF EXAM: 03/08/2021 COMPARISON: Chest x-ray 03/03/2021 HISTORY: Fevers TECHNIQUE: Single frontal view of the chest is obtained. FINDINGS: Some patchy basilar density is present. Cardiac mediastinal silhouette is stable. No evide nt pneumothorax or pleural effusion. Lung volumes are low. IMPRESSION: Probable basilar atelectasis, correlate to exclude pneumonia
[2021-03-08 15:53] LABS: Appearance,Urine Clear (Clear); Bilirubin,Urine Negative (Negative); Blood,Urine Moderate (Negative); Color,Urine Yellow; Glucose,Urine (UA) Negative (Negative); Hyaline Casts,Urine 8 /lpf (0-2); Ketones,Urine Trace (Negative); Leukocyte Esterase,Urine Negative (Negative); Mucus,Urine Rare /hpf; Nitrite,Urine Negative (Negative); Protein,Urine Trace (Negative); RBC,Urine 44 /hpf (0-5); Specific Gravity,Urine 1.023 (1.001-1.035); Squamous Epithelial Cell,Urine <1 /hpf (0-4); Urobilinogen,Urine <2.0 mg/dL (<2.0); WBC,Urine 7 /hpf (0-5)
[2021-03-08 15:53] LABS: Creatine Kinase 436 U/L (55-170)
[2021-03-08] MEDS: NYSTATIN 100,000UNIT/GM CREAM 30 GM TUBE TOPICAL SCH ×2 (16:11→21:45)
[2021-03-08] MEDS: diazePAM 2 MG TAB PO SCH ×2 (18:01→21:41)
[2021-03-08] MEDS: AMOXIC-POT CLAV 875-125MG 1 EACH TAB PO SCH (21:45)
--- NOTE | 2021-03-08 22:41 | PN ---
PROGRESS NOTE DATE OF SERVICE: 03/08/2021 REASON FOR FOLLOWUP: Leukocytosis and fever, question abdominal source. INTERVAL HISTORY: Patient did spike a fever of 100.1. The patient has been afebrile since then. Patient is slightly more awake, alert, is currently breathing comfortably on room air, sating about 100%. Patient denies any chest pain. Some vague abdominal pain. No nausea, vomiting or diarrhea. PHYSICAL EXAMINATION: Blood pressure 107/62 with a pulse of 89, temperature 98.3. 100% on room air. General description is a middle-aged male up in the bed in no distress. Respiratory system: Unlabored breathing, decreased intensity in breath sounds. No wheeze. Heart S1, S2. Regular rate and rhythm. Abdomen soft, mildly distended. No guarding. No rigidity. LABS: Hemoglobin is 7.9, white count 9.7. Creatinine 0.44. DIAGNOSTIC IMPRESSION AND PLAN: Patient with elevated white count. Concern for possible abdominal source. May benefit from surgical evaluation. Antibiotic has been switched to Augmentin. Continue and monitor clinical course closely. MMODL / IJN: [id number] /
[2021-03-09] MEDS: HEPARIN SODIUM,PORCINE/PF 5,000 UNIT/0.5 ML SYRINGE SQ SCH ×3 (02:11→16:48)
[2021-03-09] MEDS: LACTATED RINGERS 1,000 ML IV SCH ×2 (04:49→17:53)
[2021-03-09 07:54] LABS: Anisocytosis Slight; HCT 23.5 % (39.0-53.0); HGB 7.3 gm/dL (13.0-17.5); Hypochromasia Marked; MCH 38.5 pg (25.0-35.0); MCHC 31.2 g/dL (31.0-37.0); MCV 123.4 fL (80.0-100.0); Macrocytosis Marked; Mean Platelet Volume 8.3; Platelet Count 506 k/uL (150-450); Poikilocytosis Slight; WBC 10.4 k/uL (3.8-10.6)
[2021-03-09 08:04] LABS: ALT 116 U/L (4-49); AST 70 U/L (17-59); African American GFR (CKD) >90 (>60 ml/min/1.73 sqM); Albumin 2.1 g/dL (3.5-5.0); Alkaline Phosphatase 125 U/L (38-126); Anion Gap 2 mmol/L; Blood Urea Nitrogen 4 mg/dL (9-20); Calcium 7.7 mg/dL (8.4-10.2); Carbon Dioxide 28 mmol/L (22-30); Chloride 110 mmol/L (98-107); Glucose 77 mg/dL (74-99); Magnesium 1.6 mg/dL (1.6-2.3); Non-African American GFR(CKD) >90 (>60 ml/min/1.73 sqM); Phosphorus 3.3 mg/dL (2.5-4.5); Potassium 2.8 mmol/L (3.5-5.1); Sodium 140 mmol/L (137-145); Total Bilirubin 1.3 mg/dL (0.2-1.3); Total Protein 4.6 g/dL (6.3-8.2)
[2021-03-09] MEDS ORDERED: Potassium Replacement Protocol 1 EACH MISC MISCELLANE PRN (08:24)
--- NOTE | 2021-03-09 09:37 | P.PN ---
Subjective Progress Note Date: 03/08/21 03/08/2021: Patient is sitting on the side of the bed. He is slightly more alert and awake. Still showing signs of alcohol withdrawal with tremors. However appears much more calm. Per nurse, Ativan makes him extremely sleepy, therefore she has been holding off on Ativan. 03/07/2021: As I entered the room, patient was holding his blanket to his mouth, almost as if he is drinking something. Patient hallucinating, states is drinking apple/throat juice. 03/06/2021: Patient was seen by Dr. Grace for initial consultation yesterday 03/05/2021. Please refer to her note for details. Patient admitted for alcohol withdrawals. Patient was noted to be less arousable which prompted neurology consultation. EEG was performed. Patient still somewhat lethargic. He does wake up. Offers no complaints. Denies headache. Telemetry monitoring showing sinus rhythm, sinus tachycardia with some PSVT, PVC and PAC. Objective - Vital Signs Vital signs: Vital Signs Temp 99.1 F 03/09/21 04:00 Pulse 92 03/09/21 04:00 Resp 18 03/09/21 04:00 BP 120/54 03/09/21 04:00 Pulse Ox 95 03/09/21 04:00 Intake & Output 03/08/21 03/09/21 03/09/21 18:59 06:59 18:59 Intake Total 236 1200 Output Total 1100 Balance -864 1200 Weight 54.5 kg Intake: Oral 236 1200 Output: Urine 1100 Uretheral (Chu) 700 Other: Voiding Method Indwelling Catheter Diaper # Bowel Movements 3 - Exam Patient is alert and awake. Patient appears older than his stated age. Patient states he is in [facility] and states the year is 2011. Then changed it to 2025. Per nurse report, he is sometimes more alert and awake, sometimes more dis oriented. No seizures reported. Patient still is tremulous of outstretched hands. Tone and bulk of muscles normal. Muscle strength is normal except hip flexion which is weak about 4-bilaterally. Ankle dorsiflexion is normal. Upper extremity strength normal. Patient appears tremulous for outstretched hands. - Labs CBC & Chem 7: 03/09/21 07:09 03/09/21 07:09 Labs: Abnormal Lab Results - Last 24 Hours (Table) 03/07/21 03/08/21 03/08/21 Range/Units 05:25 15:16 15:17 RBC (4.30-5.90) m/uL Hgb (13.0-17.5) gm/dL Hct (39.0-53.0) % MCV (80.0-100.0) fL MCH (25.0-35.0) pg RDW (11.5-15.5) % Plt Count (150-450) k/uL Macrocytosis Potassium (3.5-5.1) mmol/L Chloride (98-107) mmol/L BUN (9-20) mg/dL Creatinine (0.66-1.25) mg/dL Calcium (8.4-10.2) mg/dL AST (17-59) U/L ALT (4-49) U/L Creatine Kinase 436 H (55-170) U/L Total Protein (6.3-8.2) g/dL Albumin (3.5-5.0) g/dL RBC Folate 1,240 H (280 - 791) ng/mL Urine Protein Trace H (Negative) Urine Ketones Trace H (Negative) Urine Blood Moderate H (Negative) Urine RBC 44 H (0-5) /hpf Urine WBC 7 H (0-5) /hpf Hyaline Casts 8 H (0-2) /lpf Urine Mucus Rare H (None) /hpf 03/09/21 03/09/21 Range/Units 07:09 07:09 RBC 1.90 L (4.30-5.90) m/uL Hgb 7.3 L (13.0-17.5) gm/dL Hct 23.5 L (39.0-53.0) % MCV 123.4 H (80.0-100.0) fL MCH 38.5 H (25.0-35.0) pg RDW 19.0 H (11.5-15.5) % Plt Count 506 H (150-450) k/uL Macrocytosis Marked A Potassium 2.8 L (3.5-5.1) mmol/L Chloride 110 H (98-107) mmol/L BUN 4 L (9-20) mg/dL Creatinine 0.42 L (0.66-1.25) mg/dL Calcium 7.7 L (8.4-10.2) mg/dL AST 70 H (17-59) U/L ALT 116 H (4-49) U/L Creatine Kinase (55-170) U/L Total Protein 4.6 L (6.3-8.2) g/dL Albumin 2.1 L (3.5-5.0) g/dL RBC Folate (280 - 791) ng/mL Urine Protein (Negative) Urine Ketones (Negative) Urine Blood (Negative) Urine RBC (0-5) /hpf Urine WBC (0-5) /hpf Hyaline Casts (0-2) /lpf Urine Mucus (None) /hpf Microbiology - Last 24 Hours (Table) 03/04/21 13:30 Blood Culture - Preliminary Blood No Growth after 96 hours Assessment and Plan Assessment: 1. Mental status changes with reported increased lethargy, likely secondary to toxic metabolic encephalopathy related to elevated liver enzymes, hypokalemia, leukocytosis and anemia. 2. Alcoholism with alcohol withdrawal. Doubt seizure. Plan: * EEG was performed 03/06/2021, which was mildly abnormal because of background disorganization and some slowing. This is suggestive mild generalized cerebral dysfunction as can be seen with toxic metabolic encephalopathy or related to medication effect. No epileptiform activity was seen. * No indication for antiepileptic medication. * Continue alcohol withdrawal protocol. Consider switching from Ativan to [place] rium. * B12 > 2000 * Medical management as per IM. * Neurology will follow sporadically. Please call if any concerns.
[2021-03-09] MEDS: POTASSIUM CHLORIDE ER 20 MEQ TAB.ER PO SCH ×4 (09:55→14:35)
[2021-03-09] MEDS: diazePAM 2 MG TAB PO SCH ×3 (09:55→20:48)
[2021-03-09] MEDS: PANTOPRAZOLE 40 MG/10 ML VIAL IVP SCH ×2 (09:55→20:48)
[2021-03-09] MEDS: AMOXIC-POT CLAV 875-125MG 1 EACH TAB PO SCH ×2 (09:55→20:48)
[2021-03-09] MEDS: atenoloL 50 MG TAB PO SCH (09:55)
[2021-03-09] MEDS: MAGNESIUM OXIDE 400 MG TAB PO SCH ×2 (09:55→20:48)
[2021-03-09] MEDS: THIAMINE 200 MG in SODIUM CHLORIDE 0.9% 100 ML IVPB SCH (09:56)
[2021-03-09] MEDS: NICOTINE 21MG/24HR PATCH TRANSDERM SCH (09:56)
[2021-03-09] MEDS: NYSTATIN 100,000UNIT/GM CREAM 30 GM TUBE TOPICAL SCH ×3 (10:07→20:49)
--- NOTE | 2021-03-09 16:17 | P.PN ---
Subjective Progress Note Date: 03/09/21 [place] Complaint: Confusion Hospital Course: The patient is a 45-year-old male with no known past medical history who came to the ER to be evaluated for alcohol withdrawal symptoms. Upon evaluation of the patient in the ER he was very lethargic and sleepy. Initial evaluation in the ER showed a white blood cell count of 15.6, sodium 133, troponin mildly elevated at 0.115. Total bilirubin elevated at 2.2 and AST 273, ALT 205. Is admitted for alcohol withdrawal and started on the CIWA protocol. Cardiology was consulted and patient underwent echocardiogram with ejection fraction 55-60%. Liver ultrasound demonstrated hepatomegaly with concerns for hepatic steatosis and hepatocellular disease with some gallbladder sludge. Head CT showed no acute process. CT abdomen and pelvis showed fatty infiltration of the liver as well as distended gallbladder and rectal fecal impaction. Infectious disease was consulted and patient was transitioned from Rocephin to Unasyn due to concerns over possible gram-negative pathogen from gallbladder dysfunction. Surgery was consulted. They recommended concentrating and correcting the patient's constipation and started magnesium citrate. Due to his continued confusion neurology was consulted. He underwent a Head CT which showed no acute process. EEG consistent with encephalopathy. Ammonia level was normal. He was seen by neurology and exam consistent with encephalopathy. Physical examination: Patient seen and examined at bedside. His mentation remains reportedly unchanged as he continues to be stuporous and minimally responsive only answering yes and no questions. Patient denies having any pain or complaints. No signs of tremors at this time. RN reports patient with diarrhea times multiple episodes. Patient did receive mag citrate days prior secondary to fecal impaction. Diarrhea possibly secondary to recent use of mag citrate vs antibiotic augmentin vs continued fecal impaction vs other. We will replace order for stool leukocytes, stool culture, and C. diff. We will complete KUB to rule out fecal obstruction. Labs reviewed, hemoglobin stable at 7.3, thrombocytosis with platelet count of 506, hyperkalemia with potassium of 2.8 and hypomagnesemia with magnesium of 1.6. Liver enzymes improving but still elevated with AST of 70 and ALT of 116. General: non toxic, mild distress, appears older than stated age Derm: warm, dry Head: atraumatic, normocephalic, symmetric Eyes: EOMI, no lid lag, anicteric sclera Mouth: no lip lesion, mucus membranes moist Cardiovascular: S1S2 reg, no murmur, positive posterior tibial pulse bilaterally, Lungs: Decreased breath sounds bilateral, no rhonchi, no rales , no accessory muscle use Abdominal: soft, nontender to palpation, no guarding, no appreciable organomegaly Ext: no gross muscle atrophy, no edema, no contractures Neuro: CN II-XI grossly intact, no focal neuro deficits Psych: Stuporous, alert to self, year-2000, location-[facility] Assessment and plan of care: Acute encephalopathy suspect combination of Delirium tremens Alcoholic hepatitis with elevated liver enzymes Fatty liver disease - PT/ptt normal -Thiamine, folic acid, CIWA protocol -Multivitamin -Follow liver enzymes -Avoid hepatotoxic agents -Neurology following appreciate further recommendations: EEG with slowing consistent with metabolic encephalopathy and CT head without acute intracranial process -Ammonia levels normal Macrocytic microchromic anemia -Continue thiamine infusions 200 mg daily. Diarrhea secondary to unclear etiology, possibly multifactorial -Diarrhea possibly secondary to recent use of mag citrate vs antibiotic augmentin vs withdrawal vs continued fecal impaction vs other. -We will place order for stool leukocytes, stool culture, and C. diff. -KUB to rule out fecal obstruction. -Continue gentle hydration with IV fluids Pyrexia of unclear etiology -Check urinalysis, remove Chu catheter -Check chest x-ray -Procalcitonin elevated at 0.37 -May be related to DTs vs infectious process Gallbladder sludge with elevated white blood cell count -Suspect elevated white blood cell count is secondary to alcoholic hepatitis/ demargination -Clinical exam not consistent with gallbladder disease -Continue Augmentin as recommended by infectious disease -Surgery and ID recommendations appreciated -Procalcitonin 0.37 Thrombocytosis -Suspect reactive Troponin elevation, flat, not consistent with acute coronary syndrome -Cardiology following, appreciate further recommendations. -Continue with atenolol -Telemetry monitoring Rhabdo, resolved after treatment with IV fluids -IV fluids completed -Became normalized Hypokalemia and hypomagnesemia -Replace -Recheck in a.m. DVT prophylaxis: Heparin Discussed with: Patient, nursing Anticipated discharge: Clinical course to determine Anticipated discharge place: Home A total of 40 minutes was spent on the care of this complex patient more than 50% of the time was spent in counseling and care coordination. Objective - Vital Signs Vital signs: Vital Signs Temp 99.0 F 03/09/21 09:51 Pulse 96 03/09/21 09:51 Resp 15 03/09/21 09:51 BP 112/67 03/09/21 09:51 Pulse Ox 93 L 03/09/21 09:51 Intake & Output 03/08/21 03/09/21 03/09/21 18:59 06:59 18:59 Intake Total 236 1200 Output Total 1100 Balance -864 1200 Weight 54.5 kg Intake: Oral 236 1200 Output: Urine 1100 Uretheral (Chu) 700 Other: Voiding Method Indwelling Catheter Diaper Diaper # Bowel Movements 3 - Labs CBC & Chem 7: 03/09/21 07:09 03/09/21 07:09 Labs: Abnormal Lab Results - Last 24 Hours (Table) 03/07/21 03/08/21 03/08/21 Range/Units 05:25 15:16 15:17 RBC (4.30-5.90) m/uL Hgb (13.0-17.5) gm/dL Hct (39.0-53.0) % MCV (80.0-100.0) fL MCH (25.0-35.0) pg RDW (11.5-15.5) % Plt Count (150-450) k/uL Macrocytosis Potassium (3.5-5.1) mmol/L Chloride (98-107) mmol/L BUN (9-20) mg/dL Creatinine (0.66-1.25) mg/dL Calcium (8.4-10.2) mg/dL AST (17-59) U/L ALT (4-49) U/L Creatine Kinase 436 H (55-170) U/L Total Protein (6.3-8.2) g/dL Albumin (3.5-5.0) g/dL RBC Folate 1,240 H (280 - 791) ng/mL Urine Protein Trace H (Negative) Urine Ketones Trace H (Negative) Urine Blood Moderate H (Negative) Urine RBC 44 H (0-5) /hpf Urine WBC 7 H (0-5) /hpf Hyaline Casts 8 H (0-2) /lpf Urine Mucus Rare H (None) /hpf 03/09/21 03/09/21 Range/Units 07:09 07:09 RBC 1.90 L (4.30-5.90) m/uL Hgb 7.3 L (13.0-17.5) gm/dL Hct 23.5 L (39.0-53.0) % MCV 123.4 H (80.0-100.0) fL MCH 38.5 H (25.0-35.0) pg RDW 19.0 H (11.5-15.5) % Plt Count 506 H (150-450) k/uL Macrocytosis Marked A Potassium 2.8 L (3.5-5.1) mmol/L Chloride 110 H (98-107) mmol/L BUN 4 L (9-20) mg/dL Creatinine 0.42 L (0.66-1.25) mg/dL Calcium 7.7 L (8.4-10.2) mg/dL AST 70 H (17-59) U/L ALT 116 H (4-49) U/L Creatine Kinase (55-170) U/L Total Protein 4.6 L (6.3-8.2) g/dL Albumin 2.1 L (3.5-5.0) g/dL RBC Folate (280 - 791) ng/mL Urine Protein (Negative) Urine Ketones (Negative) Urine Blood (Negative) Urine RBC (0-5) /hpf Urine WBC (0-5) /hpf Hyaline Casts (0-2) /lpf Urine Mucus (None) /hpf Microbiology - Last 24 Hours (Table) 03/04/21 13:30 Blood Culture - Preliminary Blood No Growth after 96 hours
[2021-03-09] MEDS: MAGNESIUM SULFATE-D5W PMX 1 GM in DEXTROSE/WATER 1 100ML.BAG IVPB SCH ×2 (16:46→17:54)
[2021-03-09] MEDS: ACETAMINOPHEN TAB 325 MG TAB PO PRN (20:48)
--- NOTE | 2021-03-09 22:11 | P.PN ---
Subjective Progress Note Date: 03/09/21 03/09/2021: Patient is doing much better. He admits to having some headache, which he rates 4/10. But it is better. Patient is more oriented. Offers no complaints. Less tremulous. 03/08/2021: Patient is sitting on the side of the bed. He is slightly more alert and awake. Still showing signs of alcohol withdrawal with tremors. However appears much more calm. Per nurse, Ativan makes him extremely sleepy, therefore she has been holding off on Ativan. 03/07/2021: As I entered the room, patient was holding his blanket to his mouth, almost as if he is drinking something. Patient hallucinating, states is drinking apple/throat juice. 03/06/2021: Patient was seen by Dr. Grace for initial consultation yesterday 03/05/2021. Please refer to her note for details. Patient admitted for alcohol withdrawals. Patient was noted to be less arousable which prompted neurology consultation. EEG was performed. Patient still somewhat lethargic. He does wake up. Offers no complaints. Denies head ache. Telemetry monitoring showing sinus rhythm, sinus tachycardia with some PSVT, PVC and PAC. Objective - Vital Signs Vital signs: Vital Signs Temp 97.7 F 03/09/21 14:34 Pulse 51 L 03/09/21 14:34 Resp 16 03/09/21 14:34 BP 94/53 03/09/21 14:34 Pulse Ox 96 03/09/21 14:34 Intake & Output 03/08/21 03/09/21 03/09/21 18:59 06:59 18:59 Intake Total 236 1200 472 Output Total 1100 Balance -864 1200 472 Weight 54.5 kg 54.5 kg Intake: Oral 236 1200 472 Output: Urine 1100 Uretheral (Chu) 700 Other: Voiding Method Indwelling Catheter Diaper Diaper # Voids 1 # Bowel Movements 3 1 - Exam Patient is more alert and awake. Patient appears older than his stated age. Patient able to tell it is February and the year is 2020. He knows he is in the hospital but does not know the name. He knows he is in [place] in [place]. States the current president is "Joe". Patient is less tremulous. Muscle strength appears normal in the arms and legs distally and proximally. Hip flexion is slightly weak. - Labs CBC & Chem 7: 03/09/21 07:09 03/09/21 07:09 Labs: Abnormal Lab Results - Last 24 Hours (Table) 03/09/21 03/09/21 Range/Units 07:09 07:09 RBC 1.90 L (4.30-5.90) m/uL Hgb 7.3 L (13.0-17.5) gm/dL Hct 23.5 L (39.0-53.0) % MCV 123.4 H (80.0-100.0) fL MCH 38.5 H (25.0-35.0) pg RDW 19.0 H (11.5-15.5) % Plt Count 506 H (150-450) k/uL Macrocytosis Marked A Potassium 2.8 L (3.5-5.1) mmol/L Chloride 110 H (98-107) mmol/L BUN 4 L (9-20) mg/dL Creatinine 0.42 L (0.66-1.25) mg/dL Calcium 7.7 L (8.4-10.2) mg/dL AST 70 H (17-59) U/L ALT 116 H (4-49) U/L Total Protein 4.6 L (6.3-8.2) g/dL Albumin 2.1 L (3.5-5.0) g/dL Microbiology - Last 24 Hours (Table) 03/04/21 13:30 Blood Culture - Preliminary Blood No Growth after 120 hours Assessment and Plan Assessment: 1. Mental status changes with reported increased lethargy, likely secondary to toxic metabolic encephalopathy related to elevated liver enzymes, hypokalemia, leukocytosis and anemia. 2. Alcoholism with alcohol withdrawal. Doubt seizure. 3. abnormal liver functions, improving Plan: * EEG was performed 03/06/2021, which was mildly abnormal because of background disorganization and some slowing. This is suggestive mild generalized cerebral dysfunction as can be seen with toxic metabolic encephalopathy or related to medication effect. No epileptiform activity was seen. * No indication for antiepileptic medication. * Continue alcohol withdrawal protocol. Consider switching from Ativan to Librium. * B12 > 2000, RBC folate 1240 normal. TSH 3.77. Patient's ammonia is normal <9 * Neurologically patient is clear.
--- NOTE | 2021-03-09 22:22 | XR ---
EXAMINATION TYPE: XR KUB DATE OF EXAM: 03/09/2021 COMPARISON: NONE HISTORY: Abdominal pain TECHNIQUE: 2 views FINDINGS: Bowel gas pattern is normal. There is no sign of intestinal obstruction or pneumoperitoneum . Fecal pattern is normal. There is no evidence of a mass. There are no pathologic calcifications ove r the kidneys. IMPRESSION: Nonacute abdomen. No change.
--- NOTE | 2021-03-09 22:50 | PN ---
PROGRESS NOTE DATE OF SERVICE: 03/09/2021 REASON FOR FOLLOWUP: Fever and leukocytosis, question of abdominal source. INTERVAL HISTORY: The patient is afebrile. The patient is more awake and alert. He is breathing comfortably. Denies having any chest pain, shortness of breath or cough. No nausea, vomiting, abdominal pain or diarrhea. PHYSICAL EXAMINATION: Blood pressure is 118/79, pulse 89, temperature 97.7. He is 96% on room air. General description is a middle-aged male lying in bed in no distress. Respiratory system: Unlabored breathing, decreased intensity of breath sounds. No wheeze. Heart S1, S2. Regular rate and rhythm. Abdomen soft, no tenderness. LABS: Hemoglobin 7.3, white count 10.4, creatinine 0.42. DIAGNOSTIC IMPRESSION AND PLAN: Patient with leukocytosis and fever, concern for possible abdominal source with a question of possible cholecystitis. Patient is currently on Augmentin; to continue. White count normalized. Fever has resolved. Continue with supportive care. MMODL / IJN: [id number] /
[2021-03-10] MEDS: HEPARIN SODIUM,PORCINE/PF 5,000 UNIT/0.5 ML SYRINGE SQ SCH ×4 (00:29→22:37)
[2021-03-10] MEDS: ACETAMINOPHEN TAB 325 MG TAB PO PRN ×3 (03:57→22:38)
[2021-03-10 06:27] LABS: ALT 92 U/L (4-49); AST 46 U/L (17-59); African American GFR (CKD) >90 (>60 ml/min/1.73 sqM); Albumin 2.1 g/dL (3.5-5.0); Alkaline Phosphatase 112 U/L (38-126); Anion Gap 4 mmol/L; Blood Urea Nitrogen 4 mg/dL (9-20); Calcium 7.5 mg/dL (8.4-10.2); Carbon Dioxide 24 mmol/L (22-30); Chloride 110 mmol/L (98-107); Glucose 90 mg/dL (74-99); Magnesium 1.4 mg/dL (1.6-2.3); Non-African American GFR(CKD) >90 (>60 ml/min/1.73 sqM); Potassium 2.9 mmol/L (3.5-5.1); Sodium 138 mmol/L (137-145); Total Bilirubin 0.9 mg/dL (0.2-1.3); Total Protein 4.4 g/dL (6.3-8.2)
[2021-03-10 06:28] LABS: Anisocytosis Slight; HCT 22.2 % (39.0-53.0); Hypochromasia Marked; MCH 38.6 pg (25.0-35.0); MCHC 31.2 g/dL (31.0-37.0); Macrocytosis Marked; Mean Platelet Volume 8.1; Platelet Count 493 k/uL (150-450); Poikilocytosis Slight; RBC 1.79 m/uL (4.30-5.90); RDW 19.2 % (11.5-15.5); WBC 8.2 k/uL (3.8-10.6)
[2021-03-10 06:30] LABS: HGB 6.9 gm/dL (13.0-17.5)
[2021-03-10] MEDS: AMOXIC-POT CLAV 875-125MG 1 EACH TAB PO SCH (07:55)
[2021-03-10] MEDS: atenoloL 50 MG TAB PO SCH (07:55)
[2021-03-10] MEDS: POTASSIUM CHLORIDE ER 20 MEQ TAB.ER PO SCH (07:55)
[2021-03-10] MEDS: NICOTINE 21MG/24HR PATCH TRANSDERM SCH (07:55)
[2021-03-10] MEDS: MAGNESIUM OXIDE 400 MG TAB PO SCH ×2 (07:55→19:57)
[2021-03-10] MEDS: diazePAM 2 MG TAB PO SCH ×3 (07:55→22:37)
[2021-03-10] MEDS: PANTOPRAZOLE 40 MG/10 ML VIAL IVP SCH ×2 (07:56→19:57)
[2021-03-10] MEDS: THIAMINE 200 MG in SODIUM CHLORIDE 0.9% 100 ML IVPB SCH (07:56)
[2021-03-10] MEDS: NYSTATIN 100,000UNIT/GM CREAM 30 GM TUBE TOPICAL SCH ×3 (07:56→23:23)
[2021-03-10] MEDS: LACTATED RINGERS 1,000 ML IV SCH (08:05)
[2021-03-10] MEDS ORDERED: POTASSIUM CHLORIDE ER 20 MEQ TAB.ER PO STA (10:20)
[2021-03-10] MEDS: POTASSIUM CHLORIDE 10 MEQ in WATER FOR INJECTION 1 100ML.BAG IVPB SCH ×4 (11:20→15:24)
[2021-03-10] MEDS: MAGNESIUM SULFATE-D5W PMX 1 GM in DEXTROSE/WATER 1 100ML.BAG IVPB SCH ×4 (12:15→15:24)
--- NOTE | 2021-03-10 14:46 | P.PN ---
Subjective Progress Note Date: 03/10/21 [place] Complaint: Confusion Hospital Course: The patient is a 45-year-old male with no known past medical history who came to the ER to be evaluated for alcohol withdrawal symptoms. Upon evaluation of the patient in the ER he was very lethargic and sleepy. Initial evaluation in the ER showed a white blood cell count of 15.6, sodium 133, troponin mildly elevated at 0.115. Total bilirubin elevated at 2.2 and AST 273, ALT 205. Is admitted for alcohol withdrawal and started on the CIWA protocol. Cardiology was consulted and patient underwent echocardiogram with ejection fraction 55-60%. Liver ultrasound demonstrated hepatomegaly with concerns for hepatic steatosis and hepatocellular disease with some gallbladder sludge. Head CT showed no acute process. CT abdomen and pelvis showed fatty infiltration of the liver as well as distended gallbladder and rectal fecal impaction. Infectious disease was consulted and patient was transitioned from Rocephin to Unasyn due to concerns over possible gram-negative pathogen from gallbladder dysfunction. Surgery was consulted. They recommended concentrating and correcting the patient's constipation and started magnesium citrate. Due to his continued confusion neurology was consulted. He underwent a Head CT which showed no acute process. EEG consistent with encephalopathy. Ammonia level was normal. He was seen by neurology and exam was consistent with encephalopathy. Physical examination: Patient seen and examined at bedside. His mentation has significantly improved this morning. Patient sitting up in bed eating breakfast this morning he was alert to person, place, time, and situation. He reports feeling overall weakness and fatigue, but otherwise denies having any complaints this morning including headache, lightheadedness, dizziness, chest pain, palpitations, shortness of breath, abdominal pain, nausea, vomiting, or experiencing any numbness/tingling/weakness in his extremities. Patient reports improvement in diarrhea. Morning labs reveal hemoglobin 6.9, platelet count of 493, potassium 2.9, and magnesium of 1.4. Order placed for transfusion 1 unit PRBCs along with potassium and magnesium supplements. Patient remains IV thiamine and scheduled Valium.. Per recommendations from infectious disease physician, Augmentin discontinued at this time. General: non toxic, mild distress, appears older than stated age Derm: warm, dry Head: atraumatic, normocephalic, symmetric Eyes: EOMI, no lid lag, anicteric sclera Mouth: no lip lesion, mucus membranes moist Cardiovascular: S1S2 reg, no murmur, positive posterior tibial pulse bilaterally, Lungs: Decreased breath sounds bilateral, no rhonchi, no rales , no accessory muscle use Abdominal: soft, nontender to palpation, no guarding, no appreciable organomegaly Ext: no gross muscle atrophy, no edema, no contractures Neuro: GCS 15. CN II-XI grossly intact, no focal neuro deficits Psych: Patient alert and oriented to person, time, place, and situation this morning. Calm, pleasant, and appropriate affect. Assessment and plan of care: Acute encephalopathy suspect combination of Delirium tremens Alcoholic hepatitis with elevated liver enzymes Fatty liver disease - PT/ptt normal -Thiamine, folic acid, CIWA protocol -Multivitamin -Follow liver enzymes -Avoid hepatotoxic agents -Neurology following appreciate further recommendations: EEG with slowing consistent with metabolic encephalopathy and CT head without acute intracranial process -Ammonia levels normal Macrocytic microchromic anemia -Continue thiamine infusions 200 mg daily. -Transfuse for hemoglobin less than 7. -Status post transfusion of 1 unit PRBCs. Diarrhea secondary to unclear etiology, possibly multifactorial -Diarrhea possibly secondary to recent use of mag citrate vs antibiotic augmen tin vs withdrawal vs continued fecal impaction vs other. -KUB negative for acute intra-abdominal process. -Stool leukocytes positive, stool culture pending. -Antibiotics discontinued. Pyrexia of unclear etiology, resolved -Blood cultures showing no growth 220 hours -Urine culture negative. -Pro-calcitonin 0.37. -Possibly secondary to DTs Gallbladder sludge with elevated white blood cell count -Suspect elevated white blood cell count is secondary to alcoholic hepatitis/ demargination -Clinical exam not consistent with gallbladder disease -Patient received treatment with Unasyn and Augmentin, antibiotics discontinued at this time -Surgery and ID recommendations appreciated -Procalcitonin 0.37 Thrombocytosis -Suspect reactive Troponin elevation, flat, not consistent with acute coronary syndrome -Cardiology following, appreciate further recommendations. -Continue with atenolol -Telemetry monitoring Rhabdo, resolved after treatment with IV fluids -IV fluids completed -Became normalized Hypokalemia and hypomagnesemia -Replace -Recheck in a.m. DVT prophylaxis: Heparin Discussed with: Patient, nursing Anticipated discharge: Clinical course to determine Anticipated discharge place: SNF versus alcohol and drug rehab A total of 45 minutes was spent on the care of this complex patient more than 50% of the time was spent in counseling and care coordination. Objective - Vital Signs Vital signs: Vital Signs Temp 98.2 F 03/10/21 08:00 Pulse 94 03/10/21 08:00 Resp 18 03/10/21 08:00 BP 139/80 03/10/21 08:00 Pulse Ox 96 03/10/21 08:00 Intake & Output 03/09/21 03/10/21 03/10/21 18:59 06:59 18:59 Intake Total 472 875 Balance 472 875 Weight 54.5 kg 55.5 kg Intake: Intake, IV Titration 675 Amount Lactated Ringers 1,000 ml 675 @ 75 mls/hr IV .[id number] VICTOR MANUEL Rx#:[id number] Oral 472 200 Other: Voiding Method Diaper Diaper Indwelling Catheter # Voids 1 2 # Bowel Movements 1 - Labs CBC & Chem 7: 03/10/21 05:41 03/10/21 05:41 Labs: Abnormal Lab Results - Last 24 Hours (Table) 03/10/21 03/10/21 03/10/21 Range/Units 05:41 05:41 08:22 RBC 1.79 L (4.30-5.90) m/uL Hgb 6.9 L* (13.0-17.5) gm/dL Hct 22.2 L (39.0-53.0) % MCV 124.0 H (80.0-100.0) fL MCH 38.6 H (25.0-35.0) pg RDW 19.2 H (11.5-15.5) % Plt Count 493 H (150-450) k/uL Macrocytosis Marked A Potassium 2.9 L (3.5-5.1) mmol/L Chloride 110 H (98-107) mmol/L BUN 4 L (9-20) mg/dL Creatinine 0.45 L (0.66-1.25) mg/dL Calcium 7.5 L (8.4-10.2) mg/dL Magnesium 1.4 L (1.6-2.3) mg/dL ALT 92 H (4-49) U/L Total Protein 4.4 L (6.3-8.2) g/dL Albumin 2.1 L (3.5-5.0) g/dL Crossmatch See Detail Microbiology - Last 24 Hours (Table) 03/09/21 12:29 Stool Culture - Preliminary Stool 03/04/21 13:30 Blood Culture - Preliminary Blood No Growth after 120 hours
--- NOTE | 2021-03-10 18:14 | P.PN ---
Subjective Progress Note Date: 03/10/21 03/10/2021: Today patient doing remarkably better. Patient states that he was out in the chair and doing much better. Taking very appropriately, normal affect. Denies any headache. Complains of generalized weakness. States the nurses would not let him walk by himself. 03/09/2021: Patient is doing much better. He admits to having some headache, which he rates 4/10. But it is better. Patient is more oriented. Offers no complaints. Less tremulous. 03/08/2021: Patient is sitting on the side of the bed. He is slightly more alert and awake. Still showing signs of alcohol withdrawal with tremors. However appears much more calm. Per nurse, Ativan makes him extremely sleepy, therefore she has been holding off on Ativan. 03/07/2021: As I entered the room, patient was holding his blanket to his mouth, almost as if he is drinking something. Patient hallucinating, states is drinking apple/throat juice. 03/06/2021: Patient was seen by Dr. Grace for initial consultation yesterday 03/05/2021. Please refer to her note for details. Patient admitted for alcohol withdrawals. Patient was noted to be less arousable which prompted neurology consultation. EEG was performed. Patient still somewhat lethargic. He does wake up. Offers no complaints. Denies headache. Telemetry monitoring showing sinus rhythm, sinus tachycardia with some PSVT, PVC and PAC. Objective - Vital Signs Vital signs: Vital Signs Temp 98.1 F 03/10/21 17:08 Pulse 80 03/10/21 17:08 Resp 18 03/10/21 17:08 BP 126/90 03/10/21 17:08 Pulse Ox 100 03/10/21 17:08 Intake & Output 03/09/21 03/10/21 03/10/21 18:59 06:59 18:59 Intake Total 472 875 739 Output Total 250 Balance 472 875 489 Weight 54.5 kg 55.5 kg Intake: Intake, IV Titration 675 Amount Lactated Ringers 1,000 ml 675 @ 75 mls/hr IV .[id number] [facility] Rx#:[id number] Oral 472 200 462 Blood Product 277 Rc Pheresis 2 As3 Unit 277 [id number] Output: Urine 250 Other: Voiding Method Diaper Diaper Urinal # Voids 1 2 1 # Bowel Movements 1 - Exam Patient is today fully alert and awake, fully oriented. He knows it is 2020 that he is in [facility] in [place] and name of the current president Ethel. Patient appears older than his stated age. Patient is less tremulous. Muscle strength appears normal in the arms and legs distally and proximally. No ataxia. Sensations equal. - Labs CBC & Chem 7: 03/10/21 05:41 03/10/21 05:41 Labs: Abnormal Lab Results - Last 24 Hours (Table) 03/09/21 03/10/21 03/10/21 Range/Units 12:29 05:41 05:41 RBC 1.79 L (4.30-5.90) m/uL Hgb 6.9 L* (13.0-17.5) gm/dL Hct 22.2 L (39.0-53.0) % MCV 124.0 H (80.0-100.0) fL MCH 38.6 H (25.0-35.0) pg RDW 19.2 H (11.5-15.5) % Plt Count 493 H (150-450) k/uL Macrocytosis Marked A Potassium 2.9 L (3.5-5.1) mmol/L Chloride 110 H (98-107) mmol/L BUN 4 L (9-20) mg/dL Creatinine 0.45 L (0.66-1.25) mg/dL Calcium 7.5 L (8.4-10.2) mg/dL Magnesium 1.4 L (1.6-2.3) mg/dL ALT 92 H (4-49) U/L Total Protein 4.4 L (6.3-8.2) g/dL Albumin 2.1 L (3.5-5.0) g/dL Stool Lactoferrin POSITIVE A (NEGATIVE) Crossmatch 03/10/21 Range/Units 08:22 RBC (4.30-5.90) m/uL Hgb (13.0-17.5) gm/dL Hct (39.0-53.0) % MCV (80.0-100.0) fL MCH (25.0-35.0) pg RDW (11.5-15.5) % Plt Count (150-450) k/uL Macrocytosis Potassium (3.5-5.1) mmol/L Chloride (98-107) mmol/L BUN (9-20) mg/dL Creatinine (0.66-1.25) mg/dL Calcium (8.4-10.2) mg/dL Magnesium (1.6-2.3) mg/dL ALT (4-49) U/L Total Protein (6.3-8.2) g/dL Albumin (3.5-5.0) g/dL Stool Lactoferrin (NEGATIVE) Crossmatch See Detail Microbiology - Last 24 Hours (Table) 03/04/21 13:30 Blood Culture - Final Blood No Growth after 144 hours 03/09/21 12:29 Stool Culture - Preliminary Stool Assessment and Plan Assessment: 1. Mental status changes with reported increased lethargy, likely secondary to toxic metabolic encephalopathy related to elevated liver enzymes, hypokalemia, leukocytosis and anemia. 2. Alcoholism with alcohol withdrawal. Doubt seizure. 3. Abnormal liver functions, improving Plan: * Patient's mentation has completely normalized. He is fully oriented. Muscle strength also improving. No other neurological workup indicated. * EEG was performed 03/06/2021, which was mildly abnormal because of background disorganization and some slowing. This is suggestive mild generalized cerebral dysfunction as can be seen with toxic metabolic encephalopathy or related to medication effect. No epileptiform activity was seen. * No indication for antiepileptic medication. * B12 > 2000, RBC folate 1240 normal. TSH 3.77. Patient's ammonia is normal <9 * Neurologically patient is clear. Neurology will sign off. Please reconsult neurology if any concerns.
--- NOTE | 2021-03-11 01:37 | PN ---
PROGRESS NOTE DATE OF SERVICE: 03/10/2021 REASON FOR FOLLOWUP: 1. Fever and leukocytosis. 2. Diarrhea. INTERVAL COURSE: The patient is afebrile. The patient is slightly more awake and alert although he is very uncomfortable. Denies having any chest pain, shortness of breath or cough. No abdominal pain. Did have some diarrhea. PHYSICAL EXAMINATION: Blood pressure 114/76, pulse of 82, temperature 98.8. He is 99% on room air. General description is a middle-aged male lying in bed in no distress. Respiratory system: Unlabored breathing, decreased intensity of the the breath sounds, no wheeze. Heart S1, S2. Regular rate and rhythm. Abdomen soft, no tenderness. LABS: Hemoglobin is 6.1, white count 8.2, creatinine 0.45. DIAGNOSTIC IMPRESSION AND PLAN: Patient with fever and leukocytosis with initial concern for possible abdominal source. Has been treated with Unasyn, now Augmentin, now developing diarrhea. With resolution of his fever and white count we will discontinue his Augmentin. Monitor the patient closely off antibiotic. If any recurrence of fever white count will need further workup. This was discussed with the primary team. MMODL / IJN: [id number] /
[2021-03-11] MEDS: THIAMINE 200 MG in SODIUM CHLORIDE 0.9% 100 ML IVPB SCH (06:54)
[2021-03-11 07:18] LABS: Anisocytosis Moderate; HCT 26.4 % (39.0-53.0); HGB 8.1 gm/dL (13.0-17.5); Hypochromasia Marked; MCH 35.7 pg (25.0-35.0); MCHC 30.6 g/dL (31.0-37.0); Macrocytosis Marked; Mean Platelet Volume 9.1; Platelet Count 479 k/uL (150-450); Poikilocytosis Slight; RBC 2.26 m/uL (4.30-5.90); RDW 22.3 % (11.5-15.5); WBC 10.5 k/uL (3.8-10.6)
[2021-03-11 07:19] LABS: ALT 77 U/L (4-49); AST 41 U/L (17-59); African American GFR (CKD) >90 (>60 ml/min/1.73 sqM); Alkaline Phosphatase 120 U/L (38-126); Anion Gap 5 mmol/L; Blood Urea Nitrogen 5 mg/dL (9-20); Calcium 7.5 mg/dL (8.4-10.2); Carbon Dioxide 22 mmol/L (22-30); Chloride 109 mmol/L (98-107); Glucose 75 mg/dL (74-99); Magnesium 1.5 mg/dL (1.6-2.3); Non-African American GFR(CKD) >90 (>60 ml/min/1.73 sqM); Potassium 3.6 mmol/L (3.5-5.1); Sodium 136 mmol/L (137-145); Total Bilirubin 0.8 mg/dL (0.2-1.3); Total Protein 4.4 g/dL (6.3-8.2)
[2021-03-11 07:26] LABS: MCV 116.7 fL (80.0-100.0)
[2021-03-11] MEDS: MAGNESIUM SULFATE-D5W PMX 1 GM in DEXTROSE/WATER 1 100ML.BAG IVPB SCH ×3 (08:32→12:39)
[2021-03-11] MEDS: HEPARIN SODIUM,PORCINE/PF 5,000 UNIT/0.5 ML SYRINGE SQ SCH ×3 (08:32→21:55)
[2021-03-11] MEDS: PANTOPRAZOLE 40 MG/10 ML VIAL IVP SCH ×2 (08:32→21:56)
[2021-03-11] MEDS: NICOTINE 21MG/24HR PATCH TRANSDERM SCH (08:32)
[2021-03-11] MEDS: POTASSIUM CHLORIDE ER 20 MEQ TAB.ER PO SCH (08:32)
[2021-03-11] MEDS: MAGNESIUM OXIDE 400 MG TAB PO SCH ×2 (08:32→21:56)
[2021-03-11] MEDS: NYSTATIN 100,000UNIT/GM CREAM 30 GM TUBE TOPICAL SCH ×3 (08:33→21:57)
[2021-03-11] MEDS: atenoloL 50 MG TAB PO SCH (08:33)
[2021-03-11] MEDS: diazePAM 2 MG TAB PO SCH ×2 (08:33→21:56)
[2021-03-11] MEDS: ACETAMINOPHEN TAB 325 MG TAB PO PRN ×2 (08:36→15:54)
--- NOTE | 2021-03-11 13:14 | P.PN ---
Subjective Progress Note Date: 03/11/21 [place] Complaint: Confusion Hospital Course: The patient is a 45-year-old male with no known past medical history who came to the ER to be evaluated for alcohol withdrawal symptoms. Upon evaluation of the patient in the ER he was very lethargic and sleepy. Initial evaluation in the ER showed a white blood cell count of 15.6, sodium 133, troponin mildly elevated at 0.115. Total bilirubin elevated at 2.2 and AST 273, ALT 205. Is admitted for alcohol withdrawal and started on the CIWA protocol. Cardiology was consulted and patient underwent echocardiogram with ejection fraction 55-60%. Liver ultrasound demonstrated hepatomegaly with concerns for hepatic steatosis and hepatocellular disease with some gallbladder sludge. Head CT showed no acute process. CT abdomen and pelvis showed fatty infiltration of the liver as well as distended gallbladder and rectal fecal impaction. Infectious disease was consulted and patient was transitioned from Rocephin to Unasyn due to concerns over possible gram-negative pathogen from gallbladder dysfunction. Surgery was consulted. They recommended concentrating and correcting the patient's constipation and started magnesium citrate. Due to his continued confusion neurology was consulted. He underwent a Head CT which showed no acute process. EEG consistent with encephalopathy. Ammonia level was normal. He was seen by neurology and exam was consistent with encephalopathy. Physical examination: Patient seen and examined at bedside. His mentation remains stable as patient is again alert to person, place, time and situation at this time. he does report feeling "forgetful" and overwhelmed with the feelings of everything going on in his recovery process. Patient expressing that he continues to have an urge to drink alcohol, but understands why he cannot. In addition, pt still very weak overall. He is going to require rehab placement on discharge. hemoglobin is stable status post transfusion of 1 unit PRBCs and currently 8.1. Patient continues to have thrombocytosis but it is improving and down to [address] atelet count. Hyperkalemia has resolved with potassium of 3.6 however patient continues to have hypomagnesemia with magnesium of 1.5. He reports he continues to have some diarrhea but this has also improved. Augmentin was stopped yesterday. Diarrhea possibly secondary to antibiotic use, however unclear etiology as this could have been symptoms/side effects of withdrawal as well. Pt denies having any complaints of headache, lightheadedness, dizziness, chest pain, palpitations, shortness of breath, abdominal pain, nausea, vomiting, or experiencing any numbness/tingling/weakness in his extremities. Patient remains IV thiamine and scheduled Valium. Valium dose decreased to 2 mg BID in attempts to wean off medication. General: non toxic, mild distress, appears older than stated age Derm: warm, dry Head: atraumatic, normocephalic, symmetric Eyes: EOMI, no lid lag, anicteric sclera Mouth: no lip lesion, mucus membranes moist Cardiovascular: S1S2 reg, no murmur, positive posterior tibial pulse bilaterally, Lungs: Decreased breath sounds bilateral, no rhonchi, no rales , no accessory muscle use Abdominal: soft, nontender to palpation, no guarding, no appreciable organomegaly Ext: no gross muscle atrophy, no edema, no contractures Neuro: GCS 15. CN II-XI grossly intact, no focal neuro deficits Psych: Patient alert and oriented to person, time, place, and situation this morning. Calm, pleasant, and appropriate affect. Assessment and plan of care: Acute encephalopathy suspect combination of Delirium tremens Acute alcohol withdrawal with delirium tremens Alcoholic hepatitis with elevated liver enzymes Fatty liver disease - PT/PTT normal -Thiamine, folic acid, CIWA protocol -Multivitamin -Follow liver enzymes -Avoid hepatotoxic agents -Neurology following appreciate further recommendations: EEG with slowing consistent with metabolic encephalopathy and CT head without acute intracranial process -Ammonia levels normal -Valium dose decreased to 2 mg BID in attempts to wean off medication. Macrocytic microchromic anemia -Continue thiamine infusions 200 mg daily. -Transfuse for hemoglobin less than 7. -Status post transfusion of 1 unit PRBCs. Diarrhea secondary to unclear etiology, possibly multifactorial -Diarrhea possibly secondary to recent use of mag citrate vs antibiotic augmentin vs withdrawal vs continued fecal impaction vs other. -KUB negative for acute intra-abdominal process. -Stool leukocytes positive, stool culture pending. -Antibiotics discontinued. Pyrexia of unclear etiology, resolved -Blood cultures showing no growth 220 hours -Urine culture negative. -Pro-calcitonin 0.37. -Possibly secondary to DTs Gallbladder sludge with elevated white blood cell count -Suspect elevated white blood cell count is secondary to alcoholic hepatitis/ demargination -Clinical exam not consistent with gallbladder disease -Patient received treatment with Unasyn and Augmentin, antibiotics discontinued at this time -Surgery and ID recommendations appreciated -Procalcitonin 0.37 Thrombocytosis -Suspect reactive Troponin elevation, flat, not consistent with acute coronary syndrome -Cardiology following, appreciate further recommendations. -Continue with atenolol -Telemetry monitoring Rhabdo, resolved after treatment with IV fluids -IV fluids completed -Became normalized Hypokalemia and hypomagnesemia -Replace -Recheck in a.m. DVT prophylaxis: Heparin Discussed with: Patient, nursing Anticipated discharge: Possibly Saturday, as pt will need placement in SNF for rehab. Anticipated discharge place: SNF A total of 45 minutes was spent on the care of this complex patient more than 50% of the time was spent in counseling and care coordination. Objective - Vital Signs Vital signs: Vital Signs Temp 99.3 F 03/11/21 04:00 Pulse 95 03/11/21 04:00 Resp 18 03/11/21 04:00 BP 120/79 03/11/21 04:00 Pulse Ox 95 03/11/21 04:00 Intake & Output 03/10/21 03/11/21 03/11/21 18:59 06:59 18:59 Intake Total 739 Output Total 250 250 Balance 489 -250 Weight 51.5 kg Intake: Oral 462 Blood Product 277 Rc Pheresis 2 As3 Unit 277 [id number] Output: Urine 250 250 Other: Voiding Method Urinal Urinal # Voids 1 1 # Bowel Movements 1 - Labs CBC & Chem 7: 03/11/21 05:40 03/11/21 05:40 Labs: Abnormal Lab Results - Last 24 Hours (Table) 03/09/21 03/10/21 03/11/21 Range/Units 12:29 08:22 05:40 RBC 2.26 L (4.30-5.90) m/uL Hgb 8.1 L (13.0-17.5) gm/dL Hct 26.4 L (39.0-53.0) % MCV 116.7 H D (80.0-100.0) fL MCH 35.7 H (25.0-35.0) pg MCHC 30.6 L (31.0-37.0) g/dL RDW 22.3 H (11.5-15.5) % Plt Count 479 H (150-450) k/uL Macrocytosis Marked A Sodium (137-145) mmol/L Chloride (98-107) mmol/L BUN (9-20) mg/dL Creatinine (0.66-1.25) mg/dL Calcium (8.4-10.2) mg/dL Magnesium (1.6-2.3) mg/dL ALT (4-49) U/L Total Protein (6.3-8.2) g/dL Albumin (3.5-5.0) g/dL Stool Lactoferrin POSITIVE A (NEGATIVE) Crossmatch See Detail 03/11/21 Range/Units 05:40 RBC (4.30-5.90) m/uL Hgb (13.0-17.5) gm/dL Hct (39.0-53.0) % MCV (80.0-100.0) fL MCH (25.0-35.0) pg MCHC (31.0-37.0) g/dL RDW (11.5-15.5) % Plt Count (150-450) k/uL Macrocytosis Sodium 136 L (137-145) mmol/L Chloride 109 H (98-107) mmol/L BUN 5 L (9-20) mg/dL Creatinine 0.44 L (0.66-1.25) mg/dL Calcium 7.5 L (8.4-10.2) mg/dL Magnesium 1.5 L (1.6-2.3) mg/dL ALT 77 H (4-49) U/L Total Protein 4.4 L (6.3-8.2) g/dL Albumin 2.0 L (3.5-5.0) g/dL Stool Lactoferrin (NEGATIVE) Crossmatch Microbiology - Last 24 Hours (Table) 03/04/21 13:30 Blood Culture - Final Blood No Growth after 144 hours
--- NOTE | 2021-03-11 23:17 | PN ---
PROGRESS NOTE DATE OF SERVICE: 03/11/2021 REASON FOR FOLLOW UP: 1. Fever, leukocytosis. 2. Diarrhea. INTERVAL HISTORY: Patient is afebrile. The patient is breathing comfortably. The patient has been complaining of diarrhea, did have multiple loose stools. The patient denies having any chest pain. No shortness of breath or cough. PHYSICAL EXAMINATION: Blood pressure 119/73 with a pulse of 82. Temperature 99.2, he is 97% on room air. General description is a middle-aged male lying in bed in no distress. Respiratory system: Unlabored breathing, decreased intensity of breath sounds. No wheeze. Heart S1, S2. Regular rate and rhythm. Abdomen: Soft, mildly tender. No guarding. No rigidity. LABS: Hemoglobin 8.7, white count 10.1, creatinine 0.44. Stool for C difficile is negative. DIAGNOSTIC IMPRESSION AND PLAN: Patient with diarrhea in this patient antibiotics. Stool for C difficile is negative. Antibiotic has been discontinued. We will add Questran for symptomatic relief and monitor clinical course closely. MMODL / IJN: [id number] /
[2021-03-12] MEDS: ACETAMINOPHEN TAB 325 MG TAB PO PRN ×2 (04:17→12:29)
[2021-03-12 05:03] LABS: Anisocytosis Moderate; HCT 28.1 % (39.0-53.0); HGB 8.7 gm/dL (13.0-17.5); Hypochromasia Marked; MCH 36.3 pg (25.0-35.0); MCV 117.1 fL (80.0-100.0); Macrocytosis Marked; Mean Platelet Volume 8.2; Platelet Count 519 k/uL (150-450); Poikilocytosis Slight; RDW 21.9 % (11.5-15.5); WBC 10.4 k/uL (3.8-10.6)
[2021-03-12 05:27] LABS: ALT 73 U/L (4-49); AST 39 U/L (17-59); African American GFR (CKD) >90 (>60 ml/min/1.73 sqM); Albumin 2.2 g/dL (3.5-5.0); Alkaline Phosphatase 127 U/L (38-126); Anion Gap 7 mmol/L; Blood Urea Nitrogen 5 mg/dL (9-20); Calcium 7.6 mg/dL (8.4-10.2); Carbon Dioxide 23 mmol/L (22-30); Chloride 106 mmol/L (98-107); Glucose 74 mg/dL (74-99); Magnesium 1.4 mg/dL (1.6-2.3); Non-African American GFR(CKD) >90 (>60 ml/min/1.73 sqM); Potassium 3.5 mmol/L (3.5-5.1); Sodium 136 mmol/L (137-145); Total Bilirubin 0.9 mg/dL (0.2-1.3); Total Protein 4.7 g/dL (6.3-8.2)
[2021-03-12] MEDS: HEPARIN SODIUM,PORCINE/PF 5,000 UNIT/0.5 ML SYRINGE SQ SCH ×2 (08:32→15:12)
[2021-03-12] MEDS: NICOTINE 21MG/24HR PATCH TRANSDERM SCH (08:32)
[2021-03-12] MEDS: PANTOPRAZOLE 40 MG/10 ML VIAL IVP SCH ×2 (08:32→21:38)
[2021-03-12] MEDS: atenoloL 50 MG TAB PO SCH (08:33)
[2021-03-12] MEDS: POTASSIUM CHLORIDE ER 20 MEQ TAB.ER PO SCH (08:33)
[2021-03-12] MEDS: diazePAM 2 MG TAB PO SCH ×2 (08:33→21:38)
[2021-03-12] MEDS: MAGNESIUM OXIDE 400 MG TAB PO SCH ×2 (08:33→21:38)
[2021-03-12] MEDS: THIAMINE 200 MG in SODIUM CHLORIDE 0.9% 100 ML IVPB SCH (10:47)
[2021-03-12] MEDS: CHOLESTYRAMINE (WITH SUGAR) 4 GM PACKET PO SCH ×2 (10:47→17:28)
[2021-03-12] MEDS: NYSTATIN 100,000UNIT/GM CREAM 30 GM TUBE TOPICAL SCH ×3 (10:52→21:39)
--- NOTE | 2021-03-12 11:04 | P.PN ---
Subjective Progress Note Date: 03/12/21 [place] Complaint: Confusion Hospital Course: The patient is a 45-year-old male with no known past medical history who came to the ER to be evaluated for alcohol withdrawal symptoms. Upon evaluation of the patient in the ER he was very lethargic and sleepy. Initial evaluation in the ER showed a white blood cell count of 15.6, sodium 133, troponin mildly elevated at 0.115. Total bilirubin elevated at 2.2 and AST 273, ALT 205. Is admitted for alcohol withdrawal and started on the CIWA protocol. Cardiology was consulted and patient underwent echocardiogram with ejection fraction 55-60%. Liver ultrasound demonstrated hepatomegaly with concerns for hepatic steatosis and hepatocellular disease with some gallbladder sludge. Head CT showed no acute process. CT abdomen and pelvis showed fatty infiltration of the liver as well as distended gallbladder and rectal fecal impaction. Infectious disease was consulted and patient was transitioned from Rocephin to Unasyn due to concerns over possible gram-negative pathogen from gallbladder dysfunction. Surgery was consulted. They recommended concentrating and correcting the patient's constipation and started magnesium citrate. Due to his continued confusion neurology was consulted. He underwent a Head CT which showed no acute process. EEG consistent with encephalopathy. Ammonia level was normal. He was seen by neurology and exam was consistent with encephalopathy. Physical examination: Patient seen and fully evaluated at the bedside this morning. Patient resting in bed. Had long discussion with patient in regards to need to get out of the bed and sit in chair today. Physical therapy also at bedside to work with patient this morning. Patient's mentation remains improved and he continues to be alert to person, place, time, and situation. However patient does have episodes in which he appears to be confused and off topic but then returns to being alert and on topic. Hemoglobin is stable at 8.7. Magnesium remains critically low at 1.4. ALT is 73 and alkaline phosphatase of 127. General: non toxic, mild distress, appears older than stated age Derm: warm, dry Head: atraumatic, normocephalic, symmetric Eyes: EOMI, no lid lag, anicteric sclera Mouth: no lip lesion, mucus membranes moist Cardiovascular: S1S2 reg, no murmur, positive posterior tibial pulse bilaterally, Lungs: Decreased breath sounds bilateral, no rhonchi, no rales , no accessory muscle use Abdominal: soft, nontender to palpation, no guarding, no appreciable organomegaly Ext: no gross muscle atrophy, no edema, no contractures Neuro: GCS 15. CN II-XI grossly intact, no focal neuro deficits Psych: Patient alert and oriented to person, time, place, and situation this morning. Calm, pleasant, and appropriate affect. Assessment and plan of care: Acute encephalopathy suspect combination of Delirium tremens Acute alcohol withdrawal with delirium tremens Alcoholic hepatitis with elevated liver enzymes Fatty liver disease - PT/PTT normal -Thiamine, folic acid, CIWA protocol -Multivitamin -Follow liver enzymes -Avoid hepatotoxic agents -Neurology following appreciate further recommendations: EEG with slowing consistent with metabolic encephalopathy and CT head without acute intracranial process -Ammonia levels normal -Valium dose decreased to 2 mg BID in attempts to wean off medication. Macrocytic microchromic anemia -Continue thiamine infusions 200 mg daily. -Transfuse for hemoglobin less than 7. -Status post transfusion of 1 unit PRBCs. Diarrhea secondary to unclear etiology, possibly multifactorial -Diarrhea possibly secondary to recent use of mag citrate vs antibiotic augmentin vs withdrawal vs continued fecal impaction vs other. -KUB negative for acute intra-abdominal process. -Stool leukocytes positive, stool culture pending. -Antibiotics discontinued. Pyrexia of unclear etiology, resolved -Blood cultures showing no growth 220 hours -Urine culture negative. -Pro-calcitonin 0.37. -Possibly secondary to DTs Gallbladder sludge with elevated white blood cell count -Suspect elevated white blood cell count is secondary to alcoholic hepatitis/ demargination -Clinical exam not consistent with gallbladder disease -Patient received treatment with Unasyn and Augmentin, antibiotics discontinued at this time -Surgery and ID recommendations appreciated -Procalcitonin 0.37 Thrombocytosis -Suspect reactive Troponin elevation, flat, not consistent with acute coronary syndrome -Cardiology following, appreciate further recommendations. -Continue with atenolol -Telemetry monitoring Rhabdo, resolved after treatment with IV fluids -IV fluids completed -Became normalized Hypokalemia and hypomagnesemia -Replace -Recheck in a.m. DVT prophylaxis: Heparin Discussed with: Patient, nursing Anticipated discharge: Possibly Saturday, as pt will need placement in SNF for rehab. Anticipated discharge place: SNF A total of 45 minutes was spent on the care of this complex patient more than 50% of the time was spent in counseling and care coordination. Objective - Vital Signs Vital signs: Vital Signs Temp 98.7 F 03/12/21 04:20 Pulse 96 03/12/21 04:20 Resp 20 03/12/21 04:20 BP 134/95 03/12/21 04:20 Pulse Ox 96 03/12/21 04:20 Intake & Output 03/11/21 03/12/21 03/12/21 18:59 06:59 18:59 Intake Total 438 Output Total 300 Balance 138 Intake: Oral 438 Output: Urine 300 Other: Voiding Method Urinal Urinal Urinal Diaper # Voids 1 3 # Bowel Movements 1 - Labs CBC & Chem 7: 03/12/21 04:12 03/12/21 04:12 Labs: Abnormal Lab Results - Last 24 Hours (Table) 03/12/21 03/12/21 Range/Units 04:12 04:12 RBC 2.40 L (4.30-5.90) m/uL Hgb 8.7 L (13.0-17.5) gm/dL Hct 28.1 L (39.0-53.0) % MCV 117.1 H (80.0-100.0) fL MCH 36.3 H (25.0-35.0) pg RDW 21.9 H (11.5-15.5) % Plt Count 519 H (150-450) k/uL Macrocytosis Marked A Sodium 136 L (137-145) mmol/L BUN 5 L (9-20) mg/dL Creatinine 0.42 L (0.66-1.25) mg/dL Calcium 7.6 L (8.4-10.2) mg/dL Magnesium 1.4 L (1.6-2.3) mg/dL ALT 73 H (4-49) U/L Alkaline Phosphatase 127 H (38-126) U/L Total Protein 4.7 L (6.3-8.2) g/dL Albumin 2.2 L (3.5-5.0) g/dL Microbiology - Last 24 Hours (Table) 03/09/21 12:29 Stool Culture - Preliminary Stool Laurie albicans
[2021-03-12] MEDS: MAGNESIUM SULFATE-D5W PMX 1 GM in DEXTROSE/WATER 1 100ML.BAG IVPB SCH ×4 (12:29→16:30)
--- NOTE | 2021-03-12 18:15 | PN ---
PROGRESS NOTE DATE OF SERVICE: 03/12/2021 REASON FOR FOLLOWUP: Diarrhea. INTERVAL HISTORY: The patient is afebrile. The patient is more awake and alert. He is breathing comfortably. Denies having any chest pain. NO shortness of breath or cough. No abdominal pain. The diarrhea has slowed down. PHYSICAL EXAMINATION: Blood pressure 127/72 with a pulse of 84, temperature 98.5. He is 95% on room air. General description is a middle-aged male lying in bed in no distress. Respiratory system: Unlabored breathing, clear to auscultation anteriorly. Heart S1, S2. Regular rate and rhythm. Abdomen soft, no tenderness. LABS: Hemoglobin 8.7, white count 10.4, creatinine 0.43. DIAGNOSTIC IMPRESSION AND PLAN: Patient with diarrhea. Antibiotics have been discontinued. The patient's stool for C difficile is negative. Continue Questran for symptomatic relief and we will monitor the patient closely off antibiotic therapy. MMODL / IJN: [id number] /
[2021-03-13] MEDS: HEPARIN SODIUM,PORCINE/PF 5,000 UNIT/0.5 ML SYRINGE SQ SCH ×4 (01:23→20:43)
[2021-03-13] MEDS: ACETAMINOPHEN TAB 325 MG TAB PO PRN ×3 (01:23→14:54)
[2021-03-13 07:28] LABS: Anisocytosis Moderate; HCT 29.3 % (39.0-53.0); HGB 8.9 gm/dL (13.0-17.5); Hypochromasia Marked; MCH 35.6 pg (25.0-35.0); MCHC 30.3 g/dL (31.0-37.0); MCV 117.4 fL (80.0-100.0); Macrocytosis Marked; Mean Platelet Volume 8.4; Platelet Count 522 k/uL (150-450); RBC 2.49 m/uL (4.30-5.90); RDW 21.1 % (11.5-15.5)
[2021-03-13] MEDS: NICOTINE 21MG/24HR PATCH TRANSDERM SCH (07:43)
[2021-03-13] MEDS: diazePAM 2 MG TAB PO SCH ×2 (07:44→20:44)
[2021-03-13] MEDS: PANTOPRAZOLE 40 MG/10 ML VIAL IVP SCH ×2 (07:44→20:44)
[2021-03-13] MEDS: atenoloL 50 MG TAB PO SCH (07:44)
[2021-03-13] MEDS: POTASSIUM CHLORIDE ER 20 MEQ TAB.ER PO SCH (07:45)
[2021-03-13] MEDS: MAGNESIUM OXIDE 400 MG TAB PO SCH ×2 (07:45→20:44)
[2021-03-13] MEDS: NYSTATIN 100,000UNIT/GM CREAM 30 GM TUBE TOPICAL SCH ×2 (07:55→16:13)
[2021-03-13] MEDS: THIAMINE 200 MG in SODIUM CHLORIDE 0.9% 100 ML IVPB SCH (08:19)
[2021-03-13 08:24] LABS: Anisocytosis (M) Present; Poikilocytosis (M) Present
[2021-03-13 09:33] LABS: African American GFR (CKD) 163.9 (60.0-200.0); Albumin 2.4 g/dL (3.8-4.9); Albumin/Globulin Ratio 1.2 (1.60-3.17); Anion Gap 13.2 mmol/L (10.00-18.00); BUN/Creat Ratio 14.5 Ratio (12.00-20.00); Blood Urea Nitrogen 5.8 mg/dL (9.0-27.0); Calcium 7.7 mg/dL (8.7-10.3); Carbon Dioxide 20.8 mmol/L (20.0-27.5); Magnesium 1.6 mg/dL (1.5-2.4); Non-African American GFR(CKD) 141.4 (60.0-200.0); Potassium 4.1 mmol/L (3.5-5.5); Total Bilirubin 0.7 mg/dL (0.30-1.20); Total Protein 4.4 g/dL (6.2-8.2)
[2021-03-13] MEDS: CHOLESTYRAMINE (WITH SUGAR) 4 GM PACKET PO SCH ×2 (10:00→16:13)
[2021-03-13] MEDS: MAGNESIUM SULFATE-D5W PMX 1 GM in DEXTROSE/WATER 1 100ML.BAG IVPB SCH ×4 (10:55→14:49)
--- NOTE | 2021-03-13 11:28 | P.DS ---
Providers Date of admission: 03/03/21 15:38 Expected date of discharge: 03/13/21 Attending physician: Kan Stapleton MD Consults: 03/03/21 15:35 Consult Physician Urgent Consulting Provider: [facility] Consult Reason/Comments: N STEMI Do you want consulting provider notified?: Yes 03/04/21 08:43 Consult Physician Routine Consulting Provider: Ame Cowart Consult Reason/Comments: Leukocytosis,sepsis Do you want consulting provider notified?: Yes 03/04/21 13:03 Consult Physician Routine Consulting Provider: Pato Peace Consult Reason/Comments: GI bleed Do you want consulting provider notified?: Yes 03/04/21 16:14 Consult Physician Routine Consulting Provider: Cesar Hartman Consult Reason/Comments: Altered mental status, Do you want consulting provider notified?: Yes Primary care physician: Stated None Hospital Course: Discharge Diagnosis: Acute encephalopathy suspect combination of Delirium tremens Acute alcohol withdrawal with delirium tremens Alcoholic hepatitis with elevated liver enzymes Fatty liver disease Macrocytic microchromic anemia, Status post transfusion of 1 unit PRBCs. Hypomagnesemia Diarrhea secondary to unclear etiology, possibly multifactorial with use of antibiotics and DTs, improved Pyrexia of unclear etiology, likely secondary to DTs Gallbladder sludge with elevated white blood cell count Thrombocytosis Troponin elevation, flat, not consistent with acute coronary syndrome Rhabdo, resolved after treatment with IV fluids Hypokalemia Hospital Course: The patient is a 45-year-old male with no known past medical history who came to the ER to be evaluated for alcohol withdrawal symptoms. Upon evaluation of the patient in the ER he was very lethargic and sleepy. Initial evaluation in the ER showed a white blood cell count of 15.6, sodium 133, troponin mildly elevated at 0.115. Total bilirubin elevated at 2.2 and AST 273, ALT 205. Is admitted for alcohol withdrawal and started on the CIWA protocol. Cardiology was consulted and patient underwent echocardiogram with ejection fraction 55-60%. Liver ultrasound demonstrated hepatomegaly with concerns for hepatic steatosis and hepatocellular disease with some gallbladder sludge. Head CT showed no acute process. CT abdomen and pelvis showed fatty infiltration of the liver as well as distended gallbladder and rectal fecal impaction. Infectious disease was consulted and patient was transitioned from Rocephin to Unasyn due to concerns over possible gram-negative pathogen from gallbladder dysfunction. Surgery was consulted. They recommended concentrating and correcting the patient's constipation and started magnesium citrate. Due to his continued confusion neurology was consulted. He underwent a Head CT which showed no acute process. EEG consistent with encephalopathy. Ammonia level was normal. He was seen by neurology and exam was consistent with encephalopathy. Patient's condition improved over 10 day hospitalization course. Mentation is back to baseline alert to person, place, time, and situation. Patient has been cleared by neurology standpoint. Patient's diarrhea has improved. Hemoglobin is stabilized. Urine culture negative and blood culture showing no growth after 144 hours. Stool culture positive for Laurie albicans, likely secondary to contamination from fungal rash to perineal region and buttocks in which patient is currently on nystatin for treatment. PT/OT have worked with patient and recommending rehabilitation Center for continued PT/OT to rebuild and work on balance/endurance/strength. Patient is medically stable and arrangements made for rehab placement. Patient to follow-up outpatient and establish care with a primary care provider, referring to Dr. Her. Patient being discharged home on Mag-Ox, cholestyramine, atenolol, nystatin, Valium, and thiamine. Labs to be drawn to further assess electrolytes in 3 days and 7 days with results to be sent to referring PCP. Patient educated on the importance of alcohol cessation and provided with information regarding AA meetings in [facility], community resources, and outpatient counseling upon discharge from rehabilitation Center. Physical examination: Patient seen and fully evaluated at the bedside this morning, he remains alert to person, place, time, and situation. He reports significant improvement and near resolution of diarrhea. Continues to have slight hypomagnesemia, we will replace and continue oral supplementation. Patient to be discharged to SNF for continued physical therapy. His strength has significantly improved, but he is still having some difficulties with ambulation due to unsteadiness. Hgb stable at 8.9. Hyponatremia resolved. Liver enzymes remain elevated but stable with ALT is 68 and alkaline phosphatase of 129. Vital signs unremarkable. General: non toxic, no acute distress, Derm: warm, dry Head: atraumatic, normocephalic, symmetric Eyes: EOMI, no lid lag, anicteric sclera Mouth: no lip lesion, mucus membranes moist Cardiovascular: S1S2 reg, no murmur, positive posterior tibial pulse bilaterally, Lungs: Decreased breath sounds bilateral, no rhonchi, no rales , no accessory muscle use Abdominal: soft, nontender to palpation, no guarding, no appreciable organomegaly Ext: no gross muscle atrophy, no edema, no contractures Neuro: GCS 15. CN II-XI grossly intact, no focal neuro deficits Psych: Patient alert and oriented to person, time, place, and situation this morning. Calm, pleasant, and appropriate affect. A total of 45 minutes of time were spent preparing this complex discharge summa ry. Patient Condition at Discharge: Stable Plan - Discharge Summary Discharge Rx Participant: No New Discharge Prescriptions: New RX: Nicotine 21Mg/24Hr Patch [Habitrol] 1 patch TRANSDERM DAILY 30 Days #30 patch RX: Magnesium Oxide [Mag-Ox] 400 mg PO BID 30 Days #60 tab RX: Cholestyramine (with Sugar) [Questran Packet] 4 gm PO BID@1000,1800 30 Days #60 packet RX: atenoloL [Tenormin] 50 mg PO DAILY 30 Days #30 tab RX: Nystatin 100,000Unit/gm Cream [Mycostatin Cream] 1 applic TOPICAL TID #1 cream diazePAM [Valium] 2 mg PO BID 5 Days #10 tab RX: Thiamine [Vitamin B-1] 100 mg PO DAILY 30 Days #30 tablet Continue RX: Vitamin B Complex 1 cap PO DAILY RX: Multivitamins, Thera [Multivitamin (formulary)] 1 tab PO DAILY Discontinued Acetaminophen Tab [Tylenol Tab] 1,000 mg PO Q6HR PRN PRN Reason: Pain Ibuprofen [Motrin Ib] 400 mg PO Q8H PRN PRN Reason: Pain Discharge Medication List RX: Multivitamins, Thera [Multivitamin (formulary)] 1 tab PO DAILY 03/03/21 [History] RX: Vitamin B Complex 1 cap PO DAILY 03/03/21 [History] RX: Cholestyramine (with Sugar) [Questran Packet] 4 gm PO BID@1000,1800 30 Days #60 packet 03/13/21 [Rx] RX: Magnesium Oxide [Mag-Ox] 400 mg PO BID 30 Days #60 tab 03/13/21 [Rx] RX: Nicotine 21Mg/24Hr Patch [Habitrol] 1 patch TRANSDERM DAILY 30 Days #30 patch 03/13/21 [Rx] RX: Nystatin 100,000Unit/gm Cream [Mycostatin Cream] 1 applic TOPICAL TID #1 cream 03/13/21 [Rx] RX: Thiamine [Vitamin B-1] 100 mg PO DAILY 30 Days #30 tablet 03/13/21 [Rx] RX: atenoloL [Tenormin] 50 mg PO DAILY 30 Days #30 tab 03/13/21 [Rx] diazePAM [Valium] 2 mg PO BID 5 Days #10 tab 03/13/21 [Rx] Follow up Appointment(s)/Referral(s): Corey Her MD [REFERRING] - 1 Week Ambulatory/Diagnostic Orders: Basic Metabolic Panel [LAB.AMB] Time Frame: 3 Days, Location: None Selected Basic Metabolic Panel [LAB.AMB] Time Frame: 7 Days, Location: None Selected Magnesium [LAB.AMB] Time Frame: 3 Days, Location: None Selected Magnesium [LAB.AMB] Time Frame: 7 Days, Location: None Selected Activity/Diet/Wound Care/Special Instructions: Activity: As tolerated. Take breaks as needed. Diet: Heart healthy and carb consistent diet. Avoid salts, or foods with hidden salts such as canned or boxed foods and frozen dinners. Extra salt makes your heart work harder and traps the fluid in your body for longer. Special Instructions: Take all of your medications as directed and remember to keep all of your doctor's appointments and follow-up as needed. You had been referred to Dr. Her, it is important to establish care with a primary care provider. Please follow up in his office in one week. You have successfully withdrawn from alcohol, it is important to refrain from any further alcohol use. Encourage AA meetings and outpatient counseling upon discharge from nursing rehabilitation Center. Thank you for allowing us to participate in your care, it was truly a pleasure having you for our patient!!! Discharge/Stand Alone Forms: AA Meetings [facility], Who Do I Call?, Community Resources, Outpatient Counseling, [employer] Discharge Disposition: TRANSFER TO SNF/ECF
[2021-03-13 14:34] VITALS: BMI 15.8
[2021-03-13 18:49] VITALS: RESP 18
--- NOTE | 2021-03-13 23:28 | PN ---
PROGRESS NOTE DATE OF SERVICE: 03/13/2021 REASON FOR FOLLOWUP: 1. Diarrhea. 2. Elevated white count. INTERVAL HISTORY: The patient is afebrile. The patient is breathing comfortably. The patient denies having any chest pain or shortness of breath or cough. Abdominal pain is currently controlled. Diarrhea slowly PHYSICAL EXAMINATION: On examination, blood pressure 121/85, pulse of 73, temperature 98.1. He is 99% on room air. General description is a middle-aged male lying in bed in no distress. Respiratory system: Unlabored breathing. Clear to auscultation anteriorly. Heart S1, S2. Regular rate and rhythm. Abdomen soft. No guarding or rigidity. LABS: Hemoglobin is 8.9, white count 10.0, creatinine 0.4. DIAGNOSTIC IMPRESSION AND PLAN: Patient with diarrhea, possibly antibiotic-associated. Overall improvement after discontinuation of antibiotics. To continue with Questran for symptomatic relief and monitor clinical course closely. MMODL / IJN: [id number] /
[2021-03-14] MEDS: NYSTATIN 100,000UNIT/GM CREAM 30 GM TUBE TOPICAL SCH ×2 (00:59→09:38)
[2021-03-14] MEDS: ACETAMINOPHEN TAB 325 MG TAB PO PRN ×2 (03:47→09:51)
[2021-03-14] MEDS: PANTOPRAZOLE 40 MG/10 ML VIAL IVP SCH (09:36)
[2021-03-14] MEDS: CHOLESTYRAMINE (WITH SUGAR) 4 GM PACKET PO SCH (09:37)
[2021-03-14] MEDS: HEPARIN SODIUM,PORCINE/PF 5,000 UNIT/0.5 ML SYRINGE SQ SCH (09:37)
[2021-03-14] MEDS: POTASSIUM CHLORIDE ER 20 MEQ TAB.ER PO SCH (09:37)
[2021-03-14] MEDS: NICOTINE 21MG/24HR PATCH TRANSDERM SCH (09:37)
[2021-03-14] MEDS: diazePAM 2 MG TAB PO SCH (09:37)
[2021-03-14] MEDS: MAGNESIUM OXIDE 400 MG TAB PO SCH (09:37)
[2021-03-14] MEDS: atenoloL 50 MG TAB PO SCH (09:38)
[2021-03-14] MEDS: THIAMINE 200 MG in SODIUM CHLORIDE 0.9% 100 ML IVPB SCH (09:40)
[2021-03-14 13:07] VITALS: BP 121/68; PULSE 94; TEMP 98.6
--- NOTE | 2021-03-14 13:20 | PN ---
PROGRESS NOTE DATE OF SERVICE: 03/14/2021 REASON FOR FOLLOWUP: Diarrhea, antibiotic-associated. INTERVAL HISTORY: The patient is afebrile. The patient is feeling better, breathing comfortably. Abdominal pain has improved. The patient's diarrhea has resolved and he is now complaining of some hard stool. PHYSICAL EXAMINATION: Blood pressure 127/91, pulse 90, temperature 99.5. He is 99% on room air. General description is a middle-aged male lying in bed in no distress. Respiratory system: Unlabored breathing. Clear to auscultation anteriorly. Heart S1, S2. Regular rate and rhythm. Abdomen soft, no tenderness. Extremities no edema of the feet. LABS: No new labs have been obtained today. His white count was normal as of yesterday. DIAGNOSTIC IMPRESSION AND PLAN: Patient with antibiotic-associated diarrhea. Antibiotic has been discontinued. Patient's diarrhea resolved with Questran. Now mostly constipation. Will discontinue Questran and monitor the patient closely. Has been advised to increase probiotics and yogurt intake. MMODL / IJN: [id number] /
--- NOTE | 2021-03-14 13:28 | P.PN ---
Subjective Progress Note Date: 03/14/21 Principal diagnosis: confusion Doing well. No complaints currently. No pain or sob. Objective - Vital Signs Vital signs: Vital Signs Temp 98.6 F 03/14/21 11:59 Pulse 94 03/14/21 11:59 Resp 18 03/14/21 11:59 BP 121/68 03/14/21 11:59 Pulse Ox 94 L 03/14/21 11:59 Intake & Output 03/13/21 03/14/21 03/14/21 18:59 06:59 18:59 Intake Total 400 540 360 Output Total 750 500 Balance 400 -210 -140 Weight 51.5 kg Intake: Intake, IV Titration 400 Amount Magnesium Sulfate-D5w Pmx 400 1 gm In Dextrose/Water 1 100ml.bag @ 100 mls/hr IVPB Q1H ON LICENSE OF [facility] Rx#: [id number] Oral 540 360 Output: Urine 750 500 Uretheral (Chu) 750 Other: Voiding Method Urinal Urinal Urinal Diaper Diaper Diaper # Voids 1 # Bowel Movements 1 1 - Exam General: non toxic, mild distress, appears older than stated age Derm: warm, dry Head: atraumatic, normocephalic, symmetric Eyes: EOMI, no lid lag, anicteric sclera Mouth: no lip lesion, mucus membranes moist Cardiovascular: S1S2 reg, no murmur, positive posterior tibial pulse bilaterally, Lungs: Decreased breath sounds bilateral, no rhonchi, no rales , no accessory muscle use Abdominal: soft, nontender to palpation, no guarding, no appreciable organomegaly Ext: no gross muscle atrophy, no edema, no contractures Neuro: GCS 15. CN II-XI grossly intact, no focal neuro deficits Psych: Patient alert and oriented to person, time, place, and situation this morning. Calm, pleasant, and appropriate affect. - Labs CBC & Chem 7: 03/13/21 06:19 03/13/21 06:19 Labs: Microbiology - Last 24 Hours (Table) 03/09/21 12:29 Stool Culture - Final Stool Laurie albicans Assessment and Plan Plan: Acute encephalopathy suspect combination of Delirium tremens Acute alcohol withdrawal with delirium tremens Alcoholic hepatitis with elevated liver enzymes Fatty liver disease - PT/PTT normal -Thiamine, folic acid, CIWA protocol -Multivitamin -Follow liver enzymes -Avoid hepatotoxic agents -Neurology following appreciate further recommendations: EEG with slowing consistent with metabolic encephalopathy and CT head without acute intracranial process -Ammonia levels normal -Valium dose decreased to 2 mg BID in attempts to wean off medication. Macrocytic microchromic anemia -Continue thiamine infusions 200 mg daily. -Transfuse for hemoglobin less than 7. -Status post transfusion of 1 unit PRBCs. Diarrhea secondary to unclear etiology, possibly multifactorial -Diarrhea possibly secondary to recent use of mag citrate vs antibiotic augmen tin vs withdrawal vs continued fecal impaction vs other. -KUB negative for acute intra-abdominal process. -Stool leukocytes positive, stool culture pending. -Antibiotics discontinued. Pyrexia of unclear etiology, resolved -Blood cultures showing no growth 220 hours -Urine culture negative. -Pro-calcitonin 0.37. -Possibly secondary to DTs Gallbladder sludge with elevated white blood cell count -Suspect elevated white blood cell count is secondary to alcoholic hepatitis/ demargination -Clinical exam not consistent with gallbladder disease -Patient received treatment with Unasyn and Augmentin, antibiotics discontinued at this time -Surgery and ID recommendations appreciated -Procalcitonin 0.37 Thrombocytosis -Suspect reactive Troponin elevation, flat, not consistent with acute coronary syndrome -Cardiology following, appreciate further recommendations. -Continue with atenolol -Telemetry monitoring Rhabdo, resolved after treatment with IV fluids -IV fluids completed -Became normalized Hypokalemia and hypomagnesemia -Replace -Recheck in a.m. DVT prophylaxis: Heparin Discussed with: Patient, nursing Anticipated discharge: Possibly Saturday, as pt will need placement in SNF for rehab. Anticipated discharge place: SNF
== END 2021-03-14 17:26 | DRG 896 ==
LOC: EC 11:57 → 3SCARD 15:38 → 5NMEDONC 03-11 23:44
PROVIDERS: ADMIT Hospitalist; ATTEND Hospitalist
PROC: 30233N1 Transfusion of Nonautologous Red Blood Cells into Peripheral Vein, Percutaneous Approach (ICD-10-PCS; principal; 2021-03-10)
DX: F10.231 Alcohol dependence with withdrawal delirium (principal); G92.8 Other toxic encephalopathy; G93.41 Metabolic encephalopathy; K52.1 Toxic gastroenteritis and colitis; M62.82 Rhabdomyolysis; R41.82 Altered mental status, unspecified; B36.9 Superficial mycosis, unspecified; D50.9 Iron deficiency anemia, unspecified; D75.839 Thrombocytosis, unspecified; E83.42 Hypomagnesemia; E86.0 Dehydration; E87.6 Hypokalemia; Z20.822 Contact with and (suspected) exposure to COVID-19; F17.200 Nicotine dependence, unspecified, uncomplicated; F32.A Depression, unspecified; F41.9 Anxiety disorder, unspecified; I49.3 Ventricular premature depolarization; K56.41 Fecal impaction; K76.0 Fatty (change of) liver, not elsewhere classified; K70.10 Alcoholic hepatitis without ascites; K82.8 Other specified diseases of gallbladder; T36.95XA Adverse effect of unspecified systemic antibiotic, initial encounter; R79.89 Other specified abnormal findings of blood chemistry
CPT/HCPCS: 36415; 36600; 51798; 70450; 71045; 74018; 74177; 76705; 80053; 80306; 80320; 81001; 82140; 82150; 82550; 82607; 82728; 82747; 82805; 83540; 83550; 83630; 83690; 83735; 84100; 84145; 84443; 84484; 85025; 85027; 85610; 85730; 86780; 86850; 86900; 86901; 86920; 87040; 87045; 87046; 87086; 87324; 87635; 93005; 93306; 94760; 95816; 96365; 96375; 99291